=== PATIENT | male | born 1940 | race Caucasian/White ===

== ENCOUNTER 2019-07-23 19:40 | Inpatient (IN) | payer MEDICARE, OTHER, SELFPAY ==
[2019-07-23] VITALS (8 sets, daily range): BP systolic 116–137; BP diastolic 57–77; PULSE 51–64; RESP 11–21; TEMP 36.4–36.6; O2SAT 93–95; BMI 27.8; BMI 27.3
--- NOTE | 2019-07-23 19:47 | EKG12_ITS ---
Test Reason : DYSRHYTHMIA Blood Pressure : / mmHG Vent. Rate : 051 BPM Atrial Rate : 051 BPM P-R Int : 302 ms QRS Dur : 082 ms QT Int : 494 ms P-R-T Axes : 075 010 001 degrees QTc Int : 455 ms Sinus bradycardia with 1st degree A-V block with Premature supraventricular complexes Otherwise normal ECG Confirmed by LORI ADLER, ELIZABETH ([id number]), food editor SAMEER HERMAN ([id number]) on 07/26/2019 9:41:34 AM Referred By: JOIE Confirmed By:ELIZABETH SANDOVAL MD
--- NOTE | 2019-07-23 19:47 | CT_ITS ---
STUDY: CT BRAIN WITHOUT CONTRAST REASON FOR EXAM: Male, 78 years old. Slurred speech and dizziness. RADIATION DOSAGE (If Supplied By Facility): CTDIvol = ( 44.99 ) mGy, DLP = ( 812.98 ) mGycm TECHNIQUE: Transaxial CT imaging of the brain was performed without administration of intravenous contrast material. Individualized dose optimization techniques were used for this CT. COMPARISON: No relevant priors. FINDINGS: Normal soft tissue structures. Normal calvarium. There is mild cerebral atrophy with widening of the extra-axial spaces and ventricular dilatation. There are areas of decreased attenuation within the white matter tracts of the supratentorial brain, consistent with microvascular disease changes. Normal basal ganglia and thalami. Normal brainstem. Normal cerebellum. There is no intracranial hemorrhage. There are no findings of an acute ischemic infarction. Minimal areas of mucosal thickening in the inferior recess of the left frontal sinus, ethmoid sinuses and right maxillary sinus. CT/Brain/Head without Contrast IMPRESSION: No acute intracranial findings. Negative for hemorrhage, hematoma or mass density. Negative for demarcation of a new nonhemorrhagic infarct zone. Mild involutional changes for age. Incidental minimal sinus findings as stated above. Electronically Signed: Olga Oh MD at 20:19 EST , Service support ,
--- NOTE | 2019-07-23 19:54 | ED.VIS.GEN ---
History of Present Illness Chief Complaint: Alt LOC Informant: Patient Onset: Today Context: Sudden Onset Timing: Intermittent Current Severity: Mild Maximum Severity: Severe Narrative: The patient is a 78-year-old male with history of atrial fibrillation who is on Eliquis that presents to the emergency department with TIA symptoms. The patient states he was in his normal state of health. He states that approximately 7 PM tonight, he had sudden onset difficulty with his speech and numbness in his right hand. He states it lasted approximately 15 minutes. He states he had a very difficult time getting his words out in his words were mumbled. He denies headache. He denies blurry vision. He denies any chest pain. He does state that sometimes he will miss doses of his Eliquis, but for the most part will take it. He denies any recent trauma. He is otherwise been in his normal state of health. Prior similar symptoms: No Recent Illness/Hospitalization: No Past Medical History - Allergies and Home Meds Allergies/Adverse Reactions: Allergies hydromorphone [From Dilaudid] Adverse Reaction (Verified 07/23/19 19:48) Itching Primary Care Physician: Calli Lizarraga,Out of [NON-STAFF] - Prior records reviewed: Yes Past Medical History: - - CHF, A. fib Surgical History: noncontributory Lives: With Family Review of Systems General: Denies: Chills, Fever, Sweats Eyes: Denies: Visual changes - bilaterally, Diplopia ENT: Denies: Rhinorrhea, Sore throat Cardiovascular: Denies: Chest pain, Palpitations Respiratory: Denies: Dyspnea, Cough, Dyspnea on exertion Gastrointestinal: Denies: Abdominal pain, Nausea, Vomiting, Diarrhea, Melena, Hematochezia Genitourinary: Denies: Dysuria, Hematuria, Frequency Musculoskeletal: Denies: Back pain, Extremity Pain Skin: Denies: Rash, Wounds Neurological: Denies: Headache, Weakness, Numbness Physical Exam Vital Signs/Narrative: Vital Signs Temp Pulse Resp BP Pulse Ox 07/23/19 19:42 97.5 F L 54 L 21 H 137/77 H 95 Inital Vital Signs reviewed: Yes General: Well nourished, Well developed, No Acute Distress Head: Normocephalic, Atraumatic Eyes: Perrl, EOMI ENT: Moist mucous membranes, No rhinorrhea Neck: Supple, Nontender Cardiovascular: Regular rate, Regular rhythm, No murmurs Respiratory: No distress, CTA bilaterally, Chest nontender Abdomen: Soft, Nontender, Nondistended, Normal bowel sounds Back: Nontender, Normal Inspection Extremities: Nontender, No edema Skin: Normal color, No rash Neurological: Alert, Oriented x3, Cranial nerves II-XII grossly intact, Normal Strength, Normal Sensation Psychological: Normal affect, Normal Mood Diagnostic/Tx/Re-eval Clinical Impression(s) from Imaging Studies Brain CT 07/23/19 19:47 IMPRESSION: No acute intracranial findings. Negative for hemorrhage, hematoma or mass density. Negative for demarcation of a new nonhemorrhagic infarct zone. Mild involutional changes for age. Incidental minimal sinus findings as stated above. Electronically Signed: Olga Oh MD at 20:19 EST , Service support , Chest X-Ray 07/23/19 20:05 IMPRESSION: Generalized hyperexpansion. Chronic interstitial changes and chronic pleural thickening. Elevated left diaphragm with a discrete opacity above the diaphragm in the left lung most likely fibrotic lung/scarring. Scarring of the left costophrenic angle. No prior films available for comparison. Normal cardiac size without venous congestion. Mild elongation of the thoracic aorta. Anterior cervical spine fusion hardware included in the [id number]. Status post right rotator cuff surgery. Electronically Signed: Olga Oh MD at 20:21 EST , Service support , Abnormal Lab Results 07/23/19 07/23/19 07/23/19 19:55 19:55 19:55 WBC 9.6 RBC 4.28 L Hgb 13.9 Hct 42.5 MCV 99.3 H MCH 32.5 H MCHC 32.7 RDW Std Deviation 47.6 H RDW Coeff of Rudy 13.2 Plt Count 291 MPV 9.5 Immature Gran % (Auto) 0.400 Neut % (Auto) 68.2 Lymph % (Auto) 15.3 L Taylor % (Auto) 13.3 H Eos % (Auto) 2.2 Baso % (Auto) 0.6 Absolute Neuts (auto) 6.5 Absolute Lymphs (auto) 1.46 Nucleated RBC % 0 PT 13.7 INR 1.1 APTT 29.7 Sodium 139 Potassium 4.3 Chloride 107 Carbon Dioxide 26.0 Anion Gap 6 BUN 20 H Creatinine 1.25 Estim Creat Clear Calc 53.55 Est GFR (MDRD) Af Amer 72 Est GFR (MDRD) Non-Af 60 BUN/Creatinine Ratio 16.0 Glucose 80 Calcium 8.8 Troponin I < 0.015 - Rhythm Strip Rhythm Strip: Sinus Rhythm Rate: 55 Ectopy: None - EKG Initial EKG Interpretation: No Acute Injury Pattern, Sinus Bradycardia, AV Block Prior: No Prior - Medical Decision Making The patient presents to the emergency department with slurred speech that has since resolved. His NIH on arrival is 0. The patient is on Eliquis. EKG was obtained which showed sinus bradycardia with a first-degree AV block. He was sent immediately for a noncontrast head CT. This was unremarkable for acute process. The patient continued to have no recurrence or progression of symptoms. Metabolic work-up was otherwise unremarkable. Based on the patient's focal symptoms, history of atrial fibrillation, and advanced age I do feel that he would benefit from observation for TIA work-up. Did speak with the hospitalist who agrees with plan of care. Impression 1. TIA ED Disposition - Plan for ED Patient: Referrals: [facility] Doctor,Out of [NON-STAFF] -
[2019-07-23 20:00] LABS: Absolute Lymphocyte Count 1.46 X10^3/uL (0.83-4.51); Absolute Neutrophil Count 6.5 X10^3/uL (2.0-7.7); Basophil# 0.06 X10^3/uL; Basophil% 0.6 % (0-1); Eosinophil# 0.21 X10^3/uL; Eosinophils% 2.2 % (0-5); Hematocrit 42.5 % (40-54); Hemoglobin 13.9 g/dL (13.0-16.5); Lymphocyte # 1.46 X10^3/ul (4.0); Lymphocyte % 15.3 % (19-41); Mean Corp Hgb Conc 32.7 g/dL (32-36); Mean Corpuscular Hgb 32.5 pg (27.0-32.0); Mean Corpuscular Volume 99.3 fL (80-94); Mean Platelet Vol. 9.5 fl (6.2-12.0); Monocyte# 1.27 X10^3/uL; Monocyte% 13.3 % (0-10); NRBC Flagged by Analyzer 0 % (0-5); Neutrophil # 6.52 X10^3/uL (2.7-7.7); Neutrophil % 68.2 % (47-70); Platelet Count 291 K/mm3 (150-450); RBC Distribution Width CV 13.2 % (11.6-14.6); RBC Distribution Width SD 47.6 fl (35.1-43.9); Red Blood Count 4.28 M/mm3 (4.6-6.2); White Blood Count 9.6 K/mm3 (4.4-11.0)
--- NOTE | 2019-07-23 20:05 | RAD_ITS ---
STUDY: X-RAY CHEST REASON FOR EXAM: Male, 78 years old. Altered level of consciousness. TECHNIQUE: Single AP portable view of the chest. COMPARISON: None. FINDINGS: Generalized hyperexpansion of the right lung with a flattened diaphragm and thickened pleura. Underlying interstitial changes most likely of a chronic nature. On the left there is an elevated and irregular diaphragm. Broad area of parenchymal opacification just above the diaphragm of the discrete nature likely to be chronic fibrotic changes. Blunted costophrenic angle. Normal size heart. Normal mediastinum and chas. Normal visualized pulmonary arteries. There is atherosclerotic tortuosity of the aortic arch and descending thoracic aorta. Anterior cervical fusion hardware included in the [id number]. Status post right rotator cuff surgery. There is no demonstrated abnormality of the visualized soft tissue structures of the upper abdomen. RAD/Chest 1 View IMPRESSION: Generalized hyperexpansion. Chronic interstitial changes and chronic pleural thickening. Elevated left diaphragm with a discrete opacity above the diaphragm in the left lung most likely fibrotic lung/scarring. Scarring of the left costophrenic angle. No prior films available for comparison. Normal cardiac size without venous congestion. Mild elongation of the thoracic aorta. Anterior cervical spine fusion hardware included in the [id number]. Status post right rotator cuff surgery. Electronically Signed: Olga Oh MD at 20:21 EST , Service support ,
[2019-07-23 20:10] LABS: International Normalized Ratio 1.1; Prothrombin Time (Protime)PT. 13.7 SECONDS (11.7-14.9)
[2019-07-23 20:11] LABS: Partial Thromboplast Time 29.7 Seconds (24.1-36.2)
[2019-07-23 20:17] LABS: Anion Gap 6 (5-15); BUN 20 mg/dL (7-18); Calcium,Total 8.8 mg/dL (8.5-10.1); Chloride 107 mmol/L (98-107); Creatinine, Serum 1.25 mg/dL (0.70-1.30); EST Glomerular Filtration Rate 60 mL/min (>60); Est Glom Filt Rate - Afr Amer 72 mL/min (>60); Estimated Creatinine Clearance 53.55 ml/min; Glucose 80 mg/dL (74-106); Potassium 4.3 mmol/L (3.5-5.1); Sodium Level 139 mmol/L (136-145)
[2019-07-23] MEDS: 0.9% Normal Saline 1,000 ML 100 ML IV (20:27)
--- NOTE | 2019-07-23 20:52 | ED.RN ---
DUE TO PTS NIH OF ZERO, PER DR. LUCIA DISCONTINUE NIH Q30MIN UNLESS STATUS CHANGE
--- NOTE | 2019-07-23 21:02 | HP.PCM_ITS ---
Problem List (1) TIA (transient ischemic attack) Status: Acute (2) Near syncope Status: Acute (3) Bradycardia Status: Acute (4) CHF (congestive heart failure) Status: Chronic Qualifiers: Heart failure type: unspecified Heart failure chronicity: unspecified Qualified Code(s): I50.9 - Heart failure, unspecified (5) PAF (paroxysmal atrial fibrillation) Status: Acute (6) Hypertension Status: Chronic Qualifiers: Hypertension type: essential hypertension Qualified Code(s): I10 - Essential (primary) hypertension (7) Hyperlipidemia Status: Chronic Qualifiers: Hyperlipidemia type: unspecified Qualified Code(s): E78.5 - Hyperlipidemia, unspecified (8) RLS (restless legs syndrome) Status: Chronic (9) Anxiety and depression Status: Chronic (10) Former tobacco use Status: Chronic History of Present Illness Date of Admission: 07/23/19 Chief Complaint: Expressive aphasia, transient, confusion. The patient is a 78 y/o M w/ PMHx: CHF Unclear type, PAF, HTN, HLD, Anxiety and Depression, RLS, Former Tobacco use who presents to the [facility] ED on 07/23/19 with history of immediately prior to arrival onset of sensation of near syncope with bilateral hand tingling and inability to express himself, noted per his to be mumbling while attempting to wash the dishes which lasted 15 minutes with immediate call to EMS with onset with resolution by the time the squad arrived with NIH stroke scale scoring at that time 0 and repeat evaluation in the ED continue to be 0. Patient noted that he was cognizant of what was occurring but did not feel well. The patient denies any prior history of stroke. Discussed the fact that there is no neurology coverage over the weekend but patient was jack calderón adamant about continuing at [facility] for his evaluation given that his symptoms have resolved. Work-up in the ED included T 97.5, heart rate 54, BP 137/77, respiratory rate 21, 95% on room air, CBC with WC 9.6, heme globin 13.9, platelet 291 without any obvious left shift, unremarkable coags, unremarkable BMP aside BUN 20/creatinine 1.25, troponin less than 0.015, chest x-ray with generalized hyperexpansion with chronic interstitial changes and chronic pleural thickening with elevated left diaphragm with a discrete opacity above the diaphragm the left lung likely fibrotic lung scarring as well as scarring of the left costophrenic angle with normal cardiac size with no obvious congestion, mild elongation of the thoracic aorta, anterior cervical spinal fusion hardware as well as noted status post right rotator cuff surgery, CT of the brain with no acute intracranial findings with mild involutional changes for age and incidental minimal sinus findings, EKG with sinus bradycardia with first-degree AV block with no acute evidence of ischemia. Past Medical History Past Medical History (Chronic Problems): Chronic Problems CHF (congestive heart failure) (Chronic) Hypertension (Chronic) Hyperlipidemia (Chronic) RLS (restless legs syndrome) (Chronic) Anxiety and depression (Chronic) Former tobacco use (Chronic) Allergies hydromorphone [From Dilaudid] Adverse Reaction (Verified 07/23/19 19:48) Itching Home Medications: Ambulatory Orders Medication Instructions Recorded Apixaban [Eliquis] 5 mg PO DAILY 07/23/19 Aspirin 81 mg PO DAILY 07/23/19 Cholecalciferol (Vitamin D3) 2,000 unit PO DAILY 07/23/19 [Vitamin D3] Citalopram [Celexa] 40 mg PO DAILY 07/23/19 Furosemide [Lasix] 40 mg PO DAILY 07/23/19 Nitroglycerin 0.4 mg SL X1 PRN 07/23/19 Ropinirole HCl 1 mg PO PRN PRN 07/23/19 Simvastatin [Zocor] 40 mg PO QHS 07/23/19 Surgical History: - - Intervention for gastric ulcer, tonsillectomy, cataract surgery, lumbar back and neck surgery, right rotator cuff surgery. Psychiatric History: Anxiety, Depression Lives: Spouse/ Significant Other Smoking Status: Former smoker Tobacco Use: Non-smoker Alcohol: None Drugs: None - *Family History Maternal History Items: - - Patient notes a maternal family history of cirrhosis, concurrent alcohol abuse history. Paternal History Items: - - Patient notes a paternal hand family history of stroke. Review of Systems Constitutional: Reports: Malaise, Weakness, Fatigue. Denies: Chills, Fever, Weight Change HEENT: Denies: Head Aches, Sinus Congestion, Sinus Drainage Cardiovascular: Reports: Light Headedness, - - Near syncopal sensation per patient.. Denies: Chest Pain, Palpitations Respiratory: Denies: Cough, Shortness of Breath, Shortness of breath at rest, Shortness of breath upon exertion, Sputum production Gastrointestinal: Denies: Abdominal Pain, Nausea, Vomiting Genitourinary: Denies: Dysuria Musculoskeletal: Denies: Joint Pain, Joint Tenderness Skin: Denies: Rash, Wounds Neurological: Reports: Change in Speech, Numbness, Tingling. Denies: Focal weakness Psychiatric: Reports: Anxiety, Depression. Denies: Homicidal Ideations, Suicidal Ideations Hematologic/ Lymphatic: Reports: Easy Bruising, Easy Bleeding VTE Information - Inpt Only VTE Present on Admission: No VTE Mechan Device Prophylaxis: SCD's VTE Pharm Prophylaxis ordered?: Yes Patient Problems: Active and Suspected Problems TIA (transient ischemic attack) (Acute) PAF (paroxysmal atrial fibrillation) (Acute) Near syncope (Acute) Bradycardia (Acute) Subjective: Patient seated upright in ED bed, mildly fatigued appearance but no acute distress, notes continued resolution of prior symptoms. Objective: Physical Examination: General: awake, alert, oriented x 3 and cooperative, seated upright in the ED bed in no apparent distress. Skin: normal color, turgor, no icterus, cyanosis. HEENT: AT/NC, EOMI, PERRLA, MMM, no carotid bruits or JVD noted. Lungs: CTA bilaterally, moderate effort, moderate decrease BL bases, no rales, ronchi or wheezing. Heart: Bradycardic with regular rhythm; no gallop, rub audible. Abdomen: soft, NTTP, ND, normal BS, no HSM. Extremities: no cyanosis, clubbing, or edema. Neurological: patient awake, alert, oriented x 3; cognitive function intact; pupils equally reactive to light and accomodation; cranial nerves II-XII grossly normal, moving all 4 extremities, no focal deficits, strength preserved, sensation intact, finger-nose and [id number] appropriate, negative Babinski, intact ~vision. Psychiatric: affect appears mildly fatigued, no acute evidence of depressive or anxiety feelings. - Physical Exam Vitals/I&O's: Vital Signs Temp Pulse Resp BP Pulse Ox 97.5 F L 54 L 13 122/57 H 94 07/23/19 19:42 07/23/19 20:30 07/23/19 20:30 07/23/19 20:30 07/23/19 20:30 Oxygen Delivery Method Room Air Weight: 199 lb 11.821 oz Body Mass Index (BMI) 27.8 Finger Stick Blood Glucose 80 Laboratory Results 07/23/19 19:55: WBC 9.6, RBC 4.28 L, Hgb 13.9, Hct 42.5, MCV 99.3 H, MCH 32.5 H, MCHC 32.7, RDW Std Deviation 47.6 H, RDW Coeff of Rudy 13.2, Plt Count 291, MPV 9.5, Immature Gran % (Auto) 0.400, Neut % (Auto) 68.2, Lymph % (Auto) 15.3 L, Davis % (Auto) 13.3 H, Eos % (Auto) 2.2, Baso % (Auto) 0.6, Absolute Neuts (auto) 6.5, Absolute Lymphs (auto) 1.46, Nucleated RBC % 0 07/23/19 19:55: PT 13.7, INR 1.1, APTT 29.7 07/23/19 19:55: Sodium 139, Potassium 4.3, Chloride 107, Carbon Dioxide 26.0, Anion Gap 6, BUN 20 H, Creatinine 1.25, Estim Creat Clear Calc 53.55, Est GFR (MDRD) Af Amer 72, Est GFR (MDRD) Non-Af 60, BUN/Creatinine Ratio 16.0, Glucose 80, Calcium 8.8, Troponin I < 0.015 Current Medications Sodium Chloride () 1,000 mls @ 100 mls/hr IV .Q10H ONE Stop: 07/24/19 05:45 Last Admin: 07/23/19 20:27 Dose: 100 mls/hr Documented by: Assessment/Plan All Active Problems TIA (transient ischemic attack) (Acute) PAF (paroxysmal atrial fibrillation) (Acute) Near syncope (Acute) Bradycardia (Acute) The patient is a 78 y/o M w/ PMHx: CHF Unclear type, PAF, HTN, HLD, Anxiety and Depression, RLS, Former Tobacco use who presents to the [facility] ED on 07/23/19 with history of immediately prior to arrival onset of sensation of near syncope with bilateral hand tingling and inability to express himself, noted per his to be mumbling while attempting to wash the dishes which lasted 15 minutes with immediate call to EMS with onset with resolution by the time the squad arrived with NIH stroke scale scoring at that time 0 and repeat evaluation in the ED continue to be 0. 1. Transient Expressive Aphasia, Paresthesias secondary to suspected TIA: Work- up in the ED included T 97.5, heart rate 54, BP 137/77, respiratory rate 21, 95% on room air, CBC with WC 9.6, heme globin 13.9, platelet 291 without any obvious left shift, unremarkable coags, unremarkable BMP aside BUN 20/creatinine 1.25, troponin less than 0.015, chest x-ray with generalized hyperexpansion with chronic interstitial changes and chronic pleural thickening with elevated left diaphragm with a discrete opacity above the diaphragm the left lung likely fibrotic lung scarring as well as scarring of the left costophrenic angle with normal cardiac size with no obvious congestion, mild elongation of the thoracic aorta, anterior cervical spinal fusion hardware as well as noted status post right rotator cuff surgery, CT of the brain with no acute intracranial findings with mild involutional changes for age and incidental minimal sinus findings, EKG with sinus bradycardia with first-degree AV block with no acute evidence of ischemia. Will admit to the PCU, will obtain MRI Brain, MRA Head and Neck, ECHO, PT/OT/Speech/Nutrition evaluation per protocol. Given complete resolution will continue HTN regimen, maintain on eliquis and asa, continue statin therapy w/ FLP, fall precautions, mag and TSH pending as well as HgbA1c. Patient gorge discussion with noted lack of on-site neurology coverage over the weekend and still adamant about remaining at [facility] for evaluation of his TIA. 2. Bradycardia, Unclear if Chronic w/ recent ? Near Syncope complaint: As noted maintain on telemetry, not on rate or rhythm agent and likely this is the etiology given PAF history, ECHO pending, cardiac enzyme trending, repeat EKG in AM, obtain admission orthostatic VS. ASA, NG. FLP in AM. Mag, TSH pending. 3. PAF: We will continue patient home Eliquis regimen, not on rate or rhythm agent, requested echocardiogram. 4. Hypertension: Continue home regimen including Lasix, PRN hydralazine. 5. Hyperlipidemia: Continue home statin regimen. AM FLP. 6. CHF, unclear type: Appears compensated, chest x-ray with no concerning findings, will maintain on Eliquis, statin and Lasix therapy but would plan to hold if orthostatics notable, not on beta-steven or CORA inhibitor/ARB, defer to outpatient. 7. RLS: Continue home Requip regimen PRN. 8. Anxiety and depression: We will continue home Celexa regimen. 9. DVT prophylaxis: SCDs, continue home Eliquis regimen. 10. CODE status: Patient notes that his is his healthcare power of insurance attorney and he does have a living will in place. He denies ever having discussed CODE STATUS with his spouse. Discussed CODE status at length including difference between FULL code, DNR-CCA and DNR-CC status. Following discussions about the differences in these status and given that this has not been discussed between him and his spouse per discussion with patient will maintain full CODE STATUS and encouraged him to review these discussions with family. Advanced Care Planning Face to Face Time: 16 minutes. Code Visit OBSV E&M: 69898 Initial observation care L3 Procedures: 80571 Advncd Care Plan 30 Min
--- NOTE | 2019-07-23 21:43 | ECHOD_ITS ---
Reason For Study: TIA/CVA Procedure This was a 2D Doppler, Color Flow transthoracic echocardiogram. Exam performed portable in patient room. Left Ventricle Normal LV size. Left ventricular systolic function is normal. The estimated ejection fraction is 60 %. Stage 3 diastolic dysfunction. No regional wall motion abnormalities noted. Right Ventricle Normal RV size. Normal systolic function. Atria The left atrium is moderately enlarged. Normal right atrium. Bubble contrast study negative for right to left interatrial shunt. Mitral Valve Bileaflet diffuse mitral valve thickening. Mild (1+) eccentric mitral valve insufficiency. Tricuspid Valve Normal tricuspid valve. Mild (1+) tricuspid valve insufficiency. Pulmonary artery systolic pressure is 50 mmHg. Moderate pulmonary hypertension. Aortic Valve Trisinus/trileaflet aortic valve. Mild focal aortic valve calcification. Pulmonic Valve The pulmonic valve is not well visualized. Great Vessels Normal aortic root. The pulmonary artery is normal size. Normal inferior vena cava. Pericardium/Pleural No pericardial effusion. Medication Performed a rapid injection of agitated mix of 9 cc saline and 1cc air to assess for atrial septal defect. MMode/2D Measurements & Calculations LVIDd: 4.6 cm IVSd: 1.2 cm Ao root diam: 2.9 cm LVIDs: 2.5 cm LVPWd: 1.0 cm RVDd: 4.8 cm FS: 44.3 % LAV(MOD-bp): 73.3 ml LVAd ap4: 22.7 cm2 SV(MOD-sp4): 40.4 ml LAV(MOD-bp) Indexed: 34.8 ml/m2 EDV(MOD-sp4): 59.5 ml LAV(MOD-sp2): 57.6 ml EDV(sp4-el): 61.6 ml LAV(MOD-sp4): 75.1 ml LVAs ap4: 11.4 cm2 ESV(MOD-sp4): 19.1 ml ESV(sp4-el): 18.7 ml EF(MOD-sp4): 67.9 % EF(sp4-el): 69.6 % SV(sp4-el): 42.8 ml LA A4 area: 23.6 cm2 LA dimension(2D): 5.0 cm RA A4 area: 18.2 cm2 Doppler Measurements & Calculations MV E max virgilio: 105.1 cm/sec Lat Peak E' Virgilio: 3.6 cm/sec Med Peak E' Virgilio: 4.5 cm/sec MV A max virgliio: 55.5 cm/sec E/E' lat: 29.1 E/E' med: 23.4 MV E/A: 1.9 Ao V2 max: 197.0 cm/sec LV V1 max: 131.0 cm/sec PA V2 max: 102.9 cm/sec Ao max P.5 mmHg LV V1 max P.9 mmHg Ao V2 mean: 132.1 cm/sec Ao mean P.7 mmHg Ao V2 VTI: 44.5 cm TR max virgilio: 334.9 cm/sec TR max P.9 mmHg Interpretation Summary Normal LV size. Left ventricular systolic function is normal. The estimated ejection fraction is 60 %. Stage 3 diastolic dysfunction. The left atrium is moderately enlarged. Mild (1+) tricuspid valve insufficiency. Pulmonary artery systolic pressure is 50 mmHg. Moderate pulmonary hypertension. Bubble contrast study negative for right to left interatrial shunt. Ordering Physician: Lizette Shaw Referring Physician: Phong Machado Performed By: Michelle Almeida RDCS, RVT
[2019-07-23 22:07] LABS: Hemoglobin A1c 5.4 % (4.2-6.3)
[2019-07-23 22:13] LABS: Magnesium 2.2 mg/dL (1.6-2.6)
[2019-07-23 23:31] LABS: Bedside Glucose 91 mg/dL (70-110)
[2019-07-24] VITALS (11 sets, daily range): BP systolic 106–137; BP diastolic 52–84; PULSE 50–62; RESP 15–18; TEMP 36.7–37.2; O2SAT 92–94; BMI 27.3
--- NOTE | 2019-07-24 05:55 | EKG12_ITS ---
Test Reason : Blood Pressure : / mmHG Vent. Rate : 049 BPM Atrial Rate : 049 BPM P-R Int : 270 ms QRS Dur : 080 ms QT Int : 502 ms P-R-T Axes : 081 024 011 degrees QTc Int : 453 ms Sinus bradycardia with 1st degree A-V block with Premature supraventricular complexes Low voltage QRS Septal infarct , age undetermined Abnormal ECG When compared with ECG of 23-JUL-2019 19:58, MANUAL COMPARISON REQUIRED, DATA IS UNCONFIRMED Confirmed by RICHARD CEBALLOS ([id number]), newspaper editor managing DARRYL SAHA ([id number]) on 07/30/2019 11:54:52 AM Referred By: CHRIS Confirmed By:RICHARD CEBALLOS
[2019-07-24 06:57] LABS: Absolute Lymphocyte Count 0.99 X10^3/uL (0.83-4.51); Absolute Neutrophil Count 5.8 X10^3/uL (2.0-7.7); Basophil# 0.03 X10^3/uL; Basophil% 0.4 % (0-1); Eosinophil# 0.22 X10^3/uL; Eosinophils% 2.7 % (0-5); Hematocrit 35.8 % (40-54); Hemoglobin 11.7 g/dL (13.0-16.5); Lymphocyte # 0.99 X10^3/ul (4.0); Lymphocyte % 12.1 % (19-41); Mean Corp Hgb Conc 32.7 g/dL (32-36); Mean Corpuscular Hgb 32.5 pg (27.0-32.0); Mean Corpuscular Volume 99.4 fL (80-94); Mean Platelet Vol. 9.6 fl (6.2-12.0); Monocyte% 14.6 % (0-10); NRBC Flagged by Analyzer 0 % (0-5); Neutrophil # 5.76 X10^3/uL (2.7-7.7); Neutrophil % 70.1 % (47-70); Platelet Count 227 K/mm3 (150-450); RBC Distribution Width CV 13.3 % (11.6-14.6); RBC Distribution Width SD 48.6 fl (35.1-43.9); White Blood Count 8.2 K/mm3 (4.4-11.0)
[2019-07-24 07:28] LABS: Anion Gap 6 (5-15); BUN 20 mg/dL (7-18); BUN/Creat Ratio 16.4 RATIO (10-20); Calcium,Total 8.1 mg/dL (8.5-10.1); Chloride 110 mmol/L (98-107); Cholesterol 143 mg/dL (200); Creatinine, Serum 1.22 mg/dL (0.70-1.30); EST Glomerular Filtration Rate 61 mL/min (>60); Est Glom Filt Rate - Afr Amer 74 mL/min (>60); Estimated Creatinine Clearance 54.86 ml/min; Glucose 95 mg/dL (74-106); High Density Lipoprotein 55 mg/dL; Potassium 4.1 mmol/L (3.5-5.1); Sodium Level 142 mmol/L (136-145); T4 Free Direct 1.06 ng/dL (0.76-1.46); Triglycerides 105 mg/dL; Very Low Density Lipoprotein 21 mg/dL (5-40)
[2019-07-24] MEDS: Aspirin 81 MG TAB.CHEW PO (10:06)
[2019-07-24] MEDS: APIXABAN 5 MG TABLET PO (10:06)
[2019-07-24] MEDS: Citalopram 40 MG TABLET PO (10:06)
[2019-07-24] MEDS: Furosemide 40 MG Tablet PO (10:07)
[2019-07-24] MEDS: 0.9% Saline Lock 10 ML Syringe IV ×2 (13:49→18:54)
--- NOTE | 2019-07-24 14:13 | PCM.PROGNOTE ---
<Di Bermeo - Last Filed: 07/24/19 14:31> Patient Problems: Active and Suspected Problems TIA (transient ischemic attack) (Acute) PAF (paroxysmal atrial fibrillation) (Acute) Near syncope (Acute) Bradycardia (Acute) Subjective: Patient seen and examined. Denies further neuro symptoms or focal deficits. Discussed MRI findings. Plan to keep patient for neuro evaluation on Friday. - Physical Exam Vitals/I&O's: Vital Signs Temp Pulse Resp BP Pulse Ox 98.1 F 55 L 16 108/56 L 92 07/24/19 13:46 07/24/19 13:46 07/24/19 13:46 07/24/19 13:46 07/24/19 13:46 Oxygen Delivery Method Room Air Weight: 196 lb 3.382 oz Body Mass Index (BMI) 27.3 Finger Stick Blood Glucose 80 Orthostatic Vital Signs Start: 07/24/19 09:57 Freq: q24h Status: Active Protocol: Activity Type Activity Date Activity User E-Sign Co-Sign Detail Recorded Client Recorded Date Recorded By Document 07/24/19 09:56 BS [id number] 07/24/19 10:01 BS 07/24/19 09:56 Orthostatic Vitals Standing -Blood Pressure (90/60-120/80) 126/67 H -Extremity Use Left Arm -Pulse Rate (60-100) 55 L Sitting -Blood Pressure (90/60-120/80) 124/73 H -Extremity Use Left Arm -Pulse Rate (60-100) 54 L Lying -Blood Pressure (90/60-120/80) 114/68 -Extremity Use Left Arm -Pulse Rate (60-100) 56 L Intake and Output for Last 24 Hours 07/22/19 07/23/19 07/24/19 23:59 23:59 23:59 Intake Total 1720 / 1720 Output Total 325 / 325 Balance 1395 / 1395 General: Alert, Oriented x3, Cooperative HEENT: Atraumatic, PERRLA, EOMI, Normocephalic Neck: Supple, No JVD, Negative Carotid Bruits Lungs: Clear to auscultation, Normal air movement Cardiovascular: Regular rate, Regular Rhythm, Normal S1, Normal S2, No murmurs Abdomen: Bowel Sounds Present, Soft, Non Tender, Non-Distended Extremities: No clubbing, No cyanosis, No edema, Capillary Refill Less than 3 Seconds Skin: No rashes, No breakdown Musculoskeletal: No Tenderness to Palpation of Joints or Extremities Neurological: Cranial nerves II-XII grossly intact, Neuro grossly intact Psych/Mental Status: Normal Affect, Appropriate Laboratory Results 07/23/19 19:55: WBC 9.6, RBC 4.28 L, Hgb 13.9, Hct 42.5, MCV 99.3 H, MCH 32.5 H, MCHC 32.7, RDW Std Deviation 47.6 H, RDW Coeff of Rudy 13.2, Plt Count 291, MPV 9.5, Immature Gran % (Auto) 0.400, Neut % (Auto) 68.2, Lymph % (Auto) 15.3 L, [place] % (Auto) 13.3 H, Eos % (Auto) 2.2, Baso % (Auto) 0.6, Absolute Neuts (auto) 6.5, Absolute Lymphs (auto) 1.46, Nucleated RBC % 0 07/23/19 19:55: PT 13.7, INR 1.1, APTT 29.7 07/23/19 19:55: Sodium 139, Potassium 4.3, Chloride 107, Carbon Dioxide 26.0, Anion Gap 6, BUN 20 H, Creatinine 1.25, Estim Creat Clear Calc 53.55, Est GFR (MDRD) Af Amer 72, Est GFR (MDRD) Non-Af 60, BUN/Creatinine Ratio 16.0, Glucose 80, Calcium 8.8, Troponin I < 0.015 07/23/19 19:55: Magnesium 2.2, TSH 8.00 H 07/23/19 19:55: Hemoglobin A1c 5.4 07/23/19 23:08: Troponin I < 0.015 07/23/19 23:22: POC Glucose 91 07/24/19 01:58: Troponin I < 0.015 07/24/19 06:41: WBC 8.2, RBC 3.60 L, Hgb 11.7 L, Hct 35.8 L, MCV 99.4 H, MCH 32.5 H, MCHC 32.7, RDW Std Deviation 48.6 H, RDW Coeff of Rudy 13.3, Plt Count 227, MPV 9.6, Immature Gran % (Auto) 0.100, Neut % (Auto) 70.1 H, Lymph % (Auto) 12.1 L, [place] % (Auto) 14.6 H, Eos % (Auto) 2.7, Baso % (Auto) 0.4, Absolute Neuts (auto) 5.8, Absolute Lymphs (auto) 0.99, Nucleated RBC % 0 07/24/19 06:41: Sodium 142, Potassium 4.1, Chloride 110 H, Carbon Dioxide 26.0, Anion Gap 6, BUN 20 H, Creatinine 1.22, Estim Creat Clear Calc 54.86, Est GFR (MDRD) Af Amer 74, Est GFR (MDRD) Non-Af 61, BUN/Creatinine Ratio 16.4, Glucose 95, Calcium 8.1 L, Triglycerides 105, Cholesterol 143, LDL Cholesterol 67, VLDL Cholesterol 21, HDL Cholesterol 55, Free T4 1.06 Current Medications Acetaminophen (Tylenol) 650 mg PO Q6H PRN PRN PRN Reason: Non-cardiac pain (mod-severe) Al Hydroxide/Mg Hydroxide (Mylanta Ii) 15 - 30 ml PO Q4H PRN PRN PRN Reason: INDIGESTION Albuterol Sulfate (Ventolin Aerosols) 2.5 mg INHALATION Q2H PRN PRN PRN Reason: dyspnea, wheezing Apixaban (Eliquis) 5 mg PO DAILY [facility] Last Admin: 07/24/19 10:06 Dose: 5 mg Documented by: [facility] Last Admin: 07/24/19 10:06 Dose: 81 mg Documented by: Atorvastatin Calcium (Lipitor) 20 mg PO QHS [facility] Last Admin: 07/23/19 23:34 Dose: Not Given Documented by: Citalopram Hydrobromide (Celexa) 40 mg PO DAILY [facility] Last Admin: 07/24/19 10:06 Dose: 40 mg Documented by: Dextrose (D50w Syringe) 0 gm IV X1 PRN; Protocol PRN Reason: Hypoglycemia Furosemide (Lasix) 40 mg PO DAILY [facility] Last Admin: 07/24/19 10:07 Dose: 40 mg Documented by: Glucagon () 1 mg IM .X1 PRN PRN Reason: Hypoglycemia Hydralazine HCl (Apresoline Iv) 10 mg IV Q4H PRN PRN PRN Reason: SBP > 160 Magnesium Hydroxide (Milk Of Magnesia) 30 ml PO DAILY PRN PRN Reason: Constipation Melatonin (Melatonin) 3 mg PO QHS PRN PRN PRN Reason: INSOMNIA Nitroglycerin (Nitrostat) 0.4 mg SUBLINGUAL Q5M PRN PRN Reason: CARDIAC/CHEST PAIN Ondansetron HCl (Zofran) 4 mg IV Q8H PRN PRN PRN Reason: NAUSEA/VOMITING Pramipexole Dihydrochloride (Mirapex) 0.5 mg PO DAILY PRN PRN PRN Reason: RESTLESS LEGS Sodium Chloride () 10 - 40 ml IV UD PRN PRN Reason: SALINE FLUSH Last Admin: 07/24/19 13:49 Dose: 10 ml Documented by: Medical Necessity - Tobacco Use Smoking Status: Former smoker Tobacco Use: Non-smoker Assessment/Plan All Active Problems TIA (transient ischemic attack) (Acute) PAF (paroxysmal atrial fibrillation) (Acute) Near syncope (Acute) Bradycardia (Acute) 1. Acute stroke-MRI of brain shows small acute to early subacute infarct in the left posterior temporal and occipital lobes. Continue aspirin, Eliquis, statin. PT/OT/ST. echocardiogram demonstrates an EF of 60%, stage III diastolic dysfunction, mild tricuspid valve insufficiency, moderate pulmonary hypertension with a artery systolic pressure 50 mmHg. MRA of neck shows no evidence of hemodynamically significant carotid stenosis. Consult neurology. 2. Mild bradycardia-stable. Not on rate limiting regimen. Monitor telemetry. Orthostatic vitals negative. 3. PAF-continue Eliquis, not on rate limiting medication. 4. HTN-stable, continue home Lasix regimen. 5. HLD-increase to high-dose statin. 6. Chronic diastolic CHF-echocardiogram demonstrates an EF of 60%, stage III diastolic dysfunction, mild tricuspid valve insufficiency, moderate pulmonary hypertension with a artery systolic pressure 50 mmHg. 7. Anxiety/Depression-continue celexa regimen. 8. RLS- continue home requip regimen. DVT prophylaxis-Eliquis This patient was seen by JOAQUÍN Still under the supervision of Dr. Cadena. <Nancy Cadena - Last Filed: 07/24/19 19:56> - Physical Exam Vitals/I&O's: Vital Signs Temp Pulse Resp BP Pulse Ox 98.4 F 57 L 18 119/69 93 07/24/19 17:45 07/24/19 19:32 07/24/19 17:45 07/24/19 17:45 07/24/19 17:45 Oxygen Delivery Method Room Air Weight: 89 kg Body Mass Index (BMI) 27.3 Finger Stick Blood Glucose 80 Orthostatic Vital Signs Start: 07/24/19 09:57 Freq: q24h Status: Active Protocol: Activity Type Activity Date Activity User E-Sign Co-Sign Detail Recorded Client Recorded Date Recorded By Document 07/24/19 09:56 BS [id number] 07/24/19 10:01 BS 07/24/19 09:56 Orthostatic Vitals Standing -Blood Pressure (90/60-120/80) 126/67 H -Extremity Use Left Arm -Pulse Rate (60-100) 55 L Sitting -Blood Pressure (90/60-120/80) 124/73 H -Extremity Use Left Arm -Pulse Rate (60-100) 54 L Lying -Blood Pressure (90/60-120/80) 114/68 -Extremity Use Left Arm -Pulse Rate (60-100) 56 L Intake and Output for Last 24 Hours 07/22/19 07/23/19 07/24/19 23:59 23:59 23:59 Intake Total 1960 / 1960 Output Total 325 / 325 Balance 1635 / 1635 Laboratory Results 07/23/19 19:55: WBC 9.6, RBC 4.28 L, Hgb 13.9, Hct 42.5, MCV 99.3 H, MCH 32.5 H, MCHC 32.7, RDW Std Deviation 47.6 H, RDW Coeff of Rudy 13.2, Plt Count 291, MPV 9.5, Immature Gran % (Auto) 0.400, Neut % (Auto) 68.2, Lymph % (Auto) 15.3 L, [place] % (Auto) 13.3 H, Eos % (Auto) 2.2, Baso % (Auto) 0.6, Absolute Neuts (auto) 6.5, Absolute Lymphs (auto) 1.46, Nucleated RBC % 0 07/23/19 19:55: PT 13.7, INR 1.1, APTT 29.7 07/23/19 19:55: Sodium 139, Potassium 4.3, Chloride 107, Carbon Dioxide 26.0, Anion Gap 6, BUN 20 H, Creatinine 1.25, Estim Creat Clear Calc 53.55, Est GFR (MDRD) Af Amer 72, Est GFR (MDRD) Non-Af 60, BUN/Creatinine Ratio 16.0, Glucose 80, Calcium 8.8, Troponin I < 0.015 07/23/19 19:55: Magnesium 2.2, TSH 8.00 H 07/23/19 19:55: Hemoglobin A1c 5.4 07/23/19 23:08: Troponin I < 0.015 07/23/19 23:22: POC Glucose 91 07/24/19 01:58: Troponin I < 0.015 07/24/19 06:41: WBC 8.2, RBC 3.60 L, Hgb 11.7 L, Hct 35.8 L, MCV 99.4 H, MCH 32.5 H, MCHC 32.7, RDW Std Deviation 48.6 H, RDW Coeff of Rudy 13.3, Plt Count 227, MPV 9.6, Immature Gran % (Auto) 0.100, Neut % (Auto) 70.1 H, Lymph % (Auto) 12.1 L, [place] % (Auto) 14.6 H, Eos % (Auto) 2.7, Baso % (Auto) 0.4, Absolute Neuts (auto) 5.8, Absolute Lymphs (auto) 0.99, Nucleated RBC % 0 07/24/19 06:41: Sodium 142, Potassium 4.1, Chloride 110 H, Carbon Dioxide 26.0, Anion Gap 6, BUN 20 H, Creatinine 1.22, Estim Creat Clear Calc 54.86, Est GFR (MDRD) Af Amer 74, Est GFR (MDRD) Non-Af 61, BUN/Creatinine Ratio 16.4, Glucose 95, Calcium 8.1 L, Triglycerides 105, Cholesterol 143, LDL Cholesterol 67, VLDL Cholesterol 21, HDL Cholesterol 55, Free T4 1.06 Current Medications Acetaminophen (Tylenol) 650 mg PO Q6H PRN PRN PRN Reason: Non-cardiac pain (mod-severe) Al Hydroxide/Mg Hydroxide (Mylanta Ii) 15 - 30 ml PO Q4H PRN PRN PRN Reason: INDIGESTION Albuterol Sulfate (Ventolin Aerosols) 2.5 mg INHALATION Q2H PRN PRN PRN Reason: dyspnea, wheezing Apixaban (Eliquis) 5 mg PO DAILY [facility] Last Admin: 07/24/19 10:06 Dose: 5 mg Documented by: Aspirin (Aspirin, Baby) 81 mg PO DAILYCM [facility] Last Admin: 07/24/19 10:06 Dose: 81 mg Documented by: Atorvastatin Calcium (Lipitor) 40 mg PO QHS [facility] Citalopram Hydrobromide (Celexa) 40 mg PO DAILY [facility] Last Admin: 07/24/19 10:06 Dose: 40 mg Documented by: Dextrose (D50w Syringe) 0 gm IV X1 PRN; Protocol PRN Reason: Hypoglycemia Furosemide (Lasix) 40 mg PO DAILY [facility] Last Admin: 07/24/19 10:07 Dose: 40 mg Documented by: Glucagon () 1 mg IM .X1 PRN PRN Reason: Hypoglycemia Hydralazine HCl (Apresoline Iv) 10 mg IV Q4H PRN PRN PRN Reason: SBP > 160 Magnesium Hydroxide (Milk Of Magnesia) 30 ml PO DAILY PRN PRN Reason: Constipation Melatonin (Melatonin) 3 mg PO QHS PRN PRN PRN Reason: INSOMNIA Nitroglycerin (Nitrostat) 0.4 mg SUBLINGUAL Q5M PRN PRN Reason: CARDIAC/CHEST PAIN Ondansetron HCl (Zofran) 4 mg IV Q8H PRN PRN PRN Reason: NAUSEA/VOMITING Last Admin: 07/24/19 18:48 Dose: 4 mg Documented by: Pramipexole Dihydrochloride (Mirapex) 0.5 mg PO DAILY PRN PRN PRN Reason: RESTLESS LEGS Sodium Chloride () 10 - 40 ml IV UD PRN PRN Reason: SALINE FLUSH Last Admin: 07/24/19 18:54 Dose: 20 ml Documented by: Assessment/Plan This patient was seen in conjunction with Di Bermeo [employer]. I have independently interviewed and examined the patient and reviewed pertinent historical, laboratory, and other data. Please refer to her note for patient's presentation, findings, and recommendations. Patient was seen and examined. He denies any new complaints. He is able to express himself. No more numbness of his extremities. MRI of brain is positive for acute infarct of the left posterior temporal and occipital lobe. Patient already on Eliquis and aspirin and statin MRI of the head and neck showed no stenosis of the arteries. Vitals were reviewed -stable Physical Exam: Gen: Appears comfortable, not pale, not jaundiced, alert oriented x3 CVS:HS I +II, regular, no murmurs RESP: Color clear to auscultation GI: BS present and normal, nontender, no palpable organs EXT:No edema Labs reviewed: ASSESSMENT: 1. Acute stroke 2. Bradycardia 3. Paroxysmal atrial fibrillation 4. Hypertension 5. Chronic Diastolic heart failure 6. Hyperlipidemia Meds reviewed Plan: Continue on aspirin, statin and Eliquis Patient will need a 30-day event monitor on discharge Would need outpatient sleep study Code Visit Inpatient E&M: [id number] Subs Hosp L2
[2019-07-24] MEDS: Ondansetron 4 MG/2 ML Vial IV (18:48)
--- NOTE | 2019-07-24 21:43 | MRI_ITS ---
We are attempting to reach an attending provider to discuss findings. An addendum with communication details will be sent when the communication is complete. STUDY: MRA NECK WITHOUT CONTRAST REASON FOR EXAM: Male, 78 years old. Stroke. Slurred speech TECHNIQUE: Source images were obtained, MIPs were performed. The study was performed unenhanced. COMPARISON: None. FINDINGS: RIGHT CAROTID ARTERIES: The origins of the great vessels are not included on this examination. Bilateral common carotid arteries however appear patent. The carotid bifurcations appear patent. Significant patient motion artifact limits assessment. Mid and distal segments of the internal carotid arteries are patent. Codominant vertebral arteries are seen poorly assessed due to significant patient motion artifact. Tortuosity of the vertebral arteries seen. IMPRESSION: No evidence for hemodynamically significant extracranial carotid artery stenosis based on this motion degraded MRA examination of the neck. Significant patient motion artifact which limits accurate assessment. Electronically Signed: Curt Wyatt, at 12:46 EST Tel , Service support , MRI/MRA Neck without Contrast
--- NOTE | 2019-07-24 21:43 | MRI_ITS ---
STUDY: MRA OF THE HEAD WITHOUT CONTRAST REASON FOR EXAM: Male, 78 years old. Stroke TECHNIQUE: 3-D [id number] (TOF) imaging was performed with MIPs. The study was performed unenhanced. COMPARISON: None. FINDINGS: Petrous, cavernous and supraclinoid segments of the internal carotid arteries are patent. The bilateral middle and anterior cerebral arteries are patent. Visualized segments of the vertebral arteries are patent. Basilar artery is patent. The bilateral posterior cerebral arteries are patent. IMPRESSION: No evidence for intracranial aneurysm, large vessel occlusion or significant arterial stenosis. Electronically Signed: Curt Wyatt, at 12:43 EST Tel , Service support , MRI/MRA Head ONLY without Contrast
--- NOTE | 2019-07-24 21:43 | MRI_ITS ---
STUDY: MRI BRAIN WITHOUT CONTRAST REASON FOR EXAM: Male, 78 years old. Stroke TECHNIQUE: Standardized multiplanar fat and water weighted pulse sequences were obtained. COMPARISON: CT brain from July 23, 2019 FINDINGS: No evidence for shift of midline structures, mass effect or compression of the ventricles noted. Small cortical-based restricted diffusion in the left posterior temporal and occipital lobes noted. Differential considerations include a small acute to early subacute infarct, encephalitides or postsurgical changes. No associated hemorrhage or mass effect. Scattered foci of T2/FLAIR hyperintensity in the periventricular and subcortical white matter noted which are nonspecific in imaging appearance however likely related with chronic small vessel disease The basal cisterns are patent. No discrete mass in the posterior fossa. No evidence for hydrocephalus. Skull base vascular flow voids are patent. No evidence for cerebellar tonsillar herniation. Mucosal thickening of the maxillary sinuses and the ethmoid . Cells MRI/Brain without Contrast IMPRESSION: Small cortical-based restricted diffusion in the left posterior temporal and occipital lobes noted. Differential considerations include a small acute to early subacute infarct, encephalitides or postsurgical changes. No associated hemorrhage or mass effect. Chronic small vessel disease and age-related involutional changes. Electronically Signed: Curt Wyatt, at 12:24 EST Tel , Service support ,
[2019-07-24] MEDS: MELATONIN 3 MG TABLET PO (22:36)
[2019-07-24] MEDS: Acetaminophen 325 MG Tablet 650 MG PO (22:36)
[2019-07-24] MEDS: Atorvastatin Calcium 40 MG Tablet PO (22:37)
[2019-07-25] VITALS (9 sets, daily range): BP systolic 99–120; BP diastolic 54–62; PULSE 45–58; RESP 18; TEMP 36.8–37.1; O2SAT 92–94; BMI 27.3
[2019-07-25] MEDS: 0.9% Saline Lock 10 ML Syringe IV ×2 (00:39→09:22)
[2019-07-25] MEDS: Ketorolac 15 MG/ML Vial IV (00:39)
[2019-07-25] MEDS: Aspirin 81 MG TAB.CHEW PO (09:22)
[2019-07-25] MEDS: APIXABAN 5 MG TABLET PO ×2 (09:22→21:09)
[2019-07-25] MEDS: Furosemide 40 MG Tablet PO (09:22)
[2019-07-25] MEDS: Citalopram 40 MG TABLET PO (09:22)
--- NOTE | 2019-07-25 10:26 | PN_ITS ---
<Di Bermeo - Last Filed: 07/25/19 10:31> Patient Problems: Active and Suspected Problems TIA (transient ischemic attack) (Acute) PAF (paroxysmal atrial fibrillation) (Acute) Near syncope (Acute) Bradycardia (Acute) Subjective: Patient seen and examined. Resting comfortably in bed. No neuro symptoms or focal deficits. - Physical Exam Vitals/I&O's: Vital Signs Temp Pulse Resp BP Pulse Ox 98.4 F 51 L 18 104/56 L 93 07/25/19 09:17 07/25/19 09:17 07/25/19 09:17 07/25/19 09:17 07/25/19 09:17 Oxygen Delivery Method Room Air Weight: 196 lb 3.382 oz Body Mass Index (BMI) 27.3 Finger Stick Blood Glucose 80 Orthostatic Vital Signs Start: 07/24/19 09:57 Freq: q24h Status: Active Protocol: Activity Type Activity Date Activity User E-Sign Co-Sign Detail Recorded Client Recorded Date Recorded By Document 07/25/19 06:20 [facility] [id number] 07/25/19 06:26 MICHAEL 07/25/19 06:20 Orthostatic Vitals Standing -Blood Pressure (90/60-120/80) 120/61 -Extremity Use Left Arm -Pulse Rate (60-100) 58 L Sitting -Blood Pressure (90/60-120/80) 114/60 -Extremity Use Left Arm -Pulse Rate (60-100) 50 L Lying -Blood Pressure (90/60-120/80) 106/61 -Extremity Use Left Arm -Pulse Rate (60-100) 46 L Intake and Output for Last 24 Hours 07/23/19 07/24/19 07/25/19 23:59 23:59 23:59 Intake Total 2160 / 2160 Output Total 325 / 325 Balance 1835 / 1835 General: Alert, Oriented x3, Cooperative HEENT: Atraumatic, PERRLA, EOMI, Normocephalic Neck: Supple, No JVD, Negative Carotid Bruits Lungs: Clear to auscultation, Normal air movement Cardiovascular: Regular Rhythm, Normal S1, Normal S2, Bradycardic Abdomen: Bowel Sounds Present, Soft, Non Tender, Non-Distended Extremities: No clubbing, No cyanosis, No edema, Capillary Refill Less than 3 Seconds Skin: No rashes, No breakdown Musculoskeletal: No Tenderness to Palpation of Joints or Extremities Neurological: Cranial nerves II-XII grossly intact, Neuro grossly intact Psych/Mental Status: Normal Affect, Appropriate Current Medications Acetaminophen (Tylenol) 650 mg PO Q6H PRN PRN PRN Reason: Non-cardiac pain (mod-severe) Last Admin: 07/24/19 22:36 Dose: 650 mg Documented by: Al Hydroxide/Mg Hydroxide (Mylanta Ii) 15 - 30 ml PO Q4H PRN PRN PRN Reason: INDIGESTION Albuterol Sulfate (Ventolin Aerosols) 2.5 mg INHALATION Q2H PRN PRN PRN Reason: dyspnea, wheezing Apixaban (Eliquis) 5 mg PO BID [facility] Last Admin: 07/25/19 09:22 Dose: 5 mg Documented by: [facility] Last Admin: 07/25/19 09:22 Dose: 81 mg Documented by: Atorvastatin Calcium (Lipitor) 40 mg PO QHS [facility] Last Admin: 07/24/19 22:37 Dose: 40 mg Documented by: Citalopram Hydrobromide (Celexa) 40 mg PO DAILY [facility] Last Admin: 07/25/19 09:22 Dose: 40 mg Documented by: Dextrose (D50w Syringe) 0 gm IV X1 PRN; Protocol PRN Reason: Hypoglycemia Furosemide (Lasix) 40 mg PO DAILY [facility] Last Admin: 07/25/19 09:22 Dose: 40 mg Documented by: Glucagon () 1 mg IM .X1 PRN PRN Reason: Hypoglycemia Hydralazine HCl (Apresoline Iv) 10 mg IV Q4H PRN PRN PRN Reason: SBP > 160 Magnesium Hydroxide (Milk Of Magnesia) 30 ml PO DAILY PRN PRN Reason: Constipation Melatonin (Melatonin) 3 mg PO QHS PRN PRN PRN Reason: INSOMNIA Last Admin: 07/24/19 22:36 Dose: 3 mg Documented by: Nitroglycerin (Nitrostat) 0.4 mg SUBLINGUAL Q5M PRN PRN Reason: CARDIAC/CHEST PAIN Ondansetron HCl (Zofran) 4 mg IV Q8H PRN PRN PRN Reason: NAUSEA/VOMITING Last Admin: 07/24/19 18:48 Dose: 4 mg Documented by: Pramipexole Dihydrochloride (Mirapex) 0.5 mg PO DAILY PRN PRN PRN Reason: RESTLESS LEGS Sodium Chloride () 10 - 40 ml IV UD PRN PRN Reason: SALINE FLUSH Last Admin: 07/25/19 09:22 Dose: 10 ml Documented by: Medical Necessity - Tobacco Use Smoking Status: Former smoker Tobacco Use: Non-smoker Assessment/Plan All Active Problems TIA (transient ischemic attack) (Acute) PAF (paroxysmal atrial fibrillation) (Acute) Near syncope (Acute) Bradycardia (Acute) 1. Acute stroke-MRI of brain shows small acute to early subacute infarct in the left posterior temporal and occipital lobes. Continue aspirin, Eliquis, statin. PT/OT/ST. echocardiogram demonstrates an EF of 60%, stage III diastolic dysfunction, mild tricuspid valve insufficiency, moderate pulmonary hypertension with a artery systolic pressure 50 mmHg. MRA of neck shows no evidence of hemodynamically significant carotid stenosis. Neurology consult pending. Recommend 30-day event recorder and PSG as outpatient. 2. Mild bradycardia-stable. Not on rate limiting regimen. Monitor telemetry. Orthostatic vitals negative. 3. PAF-continue Eliquis, not on rate limiting medication. 4. HTN-stable, continue home Lasix regimen. 5. HLD-increase to high-dose statin. 6. Chronic diastolic CHF-echocardiogram demonstrates an EF of 60%, stage III diastolic dysfunction, mild tricuspid valve insufficiency, moderate pulmonary hypertension with a artery systolic pressure 50 mmHg. 7. Anxiety/Depression-continue celexa regimen. 8. RLS- continue home requip regimen. DVT prophylaxis-Eliquis This patient was seen by JOAQUÍN Still under the supervision of Dr. Cadena. <Nancy Cadena - Last Filed: 07/25/19 13:03> - Physical Exam Vitals/I&O's: Vital Signs Temp Pulse Resp BP Pulse Ox 98.4 F 51 L 18 104/56 L 93 07/25/19 09:17 07/25/19 09:17 07/25/19 09:17 07/25/19 09:17 07/25/19 09:17 Oxygen Delivery Method Room Air Weight: 89 kg Body Mass Index (BMI) 27.3 Finger Stick Blood Glucose 80 Orthostatic Vital Signs Start: 07/24/19 09:57 Freq: q24h Status: Active Protocol: Activity Type Activity Date Activity User E-Sign Co-Sign Detail Recorded Client Recorded Date Recorded By Document 07/25/19 06:20 [facility] [id number] 07/25/19 06:26 [facility] 07/25/19 06:20 Orthostatic Vitals Standing -Blood Pressure (90/60-120/80) 120/61 -Extremity Use Left Arm -Pulse Rate (60-100) 58 L Sitting -Blood Pressure (90/60-120/80) 114/60 -Extremity Use Left Arm -Pulse Rate (60-100) 50 L Lying -Blood Pressure (90/60-120/80) 106/61 -Extremity Use Left Arm -Pulse Rate (60-100) 46 L Intake and Output for Last 24 Hours 07/23/19 07/24/19 07/25/19 23:59 23:59 23:59 Intake Total 2160 / 2160 360 / 360 Output Total 325 / 325 Balance 1835 / 1835 360 / 360 Current Medications Acetaminophen (Tylenol) 650 mg PO Q6H PRN PRN PRN Reason: Non-cardiac pain (mod-severe) Last Admin: 07/24/19 22:36 Dose: 650 mg Documented by: Al Hydroxide/Mg Hydroxide (Mylanta Ii) 15 - 30 ml PO Q4H PRN PRN PRN Reason: INDIGESTION Albuterol Sulfate (Ventolin Aerosols) 2.5 mg INHALATION Q2H PRN PRN PRN Reason: dyspnea, wheezing Apixaban (Eliquis) 5 mg PO BID [facility] Last Admin: 07/25/19 09:22 Dose: 5 mg Documented by: [facility], [facility] Last Admin: 07/25/19 09:22 Dose: 81 mg Documented by: Atorvastatin Calcium (Lipitor) 40 mg PO QHS [facility] Last Admin: 07/24/19 22:37 Dose: 40 mg Documented by: Citalopram Hydrobromide (Celexa) 40 mg PO DAILY [facility] Last Admin: 07/25/19 09:22 Dose: 40 mg Documented by: Dextrose (D50w Syringe) 0 gm IV X1 PRN; Protocol PRN Reason: Hypoglycemia Furosemide (Lasix) 40 mg PO DAILY [facility] Last Admin: 07/25/19 09:22 Dose: 40 mg Documented by: Glucagon () 1 mg IM .X1 PRN PRN Reason: Hypoglycemia Hydralazine HCl (Apresoline Iv) 10 mg IV Q4H PRN PRN PRN Reason: SBP > 160 Magnesium Hydroxide (Milk Of Magnesia) 30 ml PO DAILY PRN PRN Reason: Constipation Melatonin (Melatonin) 3 mg PO QHS PRN PRN PRN Reason: INSOMNIA Last Admin: 07/24/19 22:36 Dose: 3 mg Documented by: Nitroglycerin (Nitrostat) 0.4 mg SUBLINGUAL Q5M PRN PRN Reason: CARDIAC/CHEST PAIN Ondansetron HCl (Zofran) 4 mg IV Q8H PRN PRN PRN Reason: NAUSEA/VOMITING Last Admin: 07/24/19 18:48 Dose: 4 mg Documented by: Pramipexole Dihydrochloride (Mirapex) 0.5 mg PO DAILY PRN PRN PRN Reason: RESTLESS LEGS Sodium Chloride () 10 - 40 ml IV UD PRN PRN Reason: SALINE FLUSH Last Admin: 07/25/19 09:22 Dose: 10 ml Documented by: Assessment/Plan This patient was seen in conjunction with Di Bermeo SOYBEAN GROWER. I have independently interviewed and examined the patient and reviewed pertinent historical, laboratory, and other data. Please refer to her note for patient's presentation, findings, and recommendations. Patient was seen and examined. He denies any new complaints. No new complaints. No acute events overnight. Vitals were reviewed -stable Physical Exam: Gen: Appears comfortable, not pale, not jaundiced, alert oriented x3 CVS:HS I +II, regular, no murmurs RESP: Color clear to auscultation GI: BS present and normal, nontender, no palpable organs EXT:No edema Labs reviewed: ASSESSMENT: 1. Acute stroke 2. Bradycardia 3. Paroxysmal atrial fibrillation 4. Hypertension 5. Chronic Diastolic heart failure 6. Hyperlipidemia Meds reviewed Plan: Continue on aspirin, statin and Eliquis Patient will need a 30-day event monitor on discharge Would need outpatient sleep study Code Visit Inpatient E&M: [id number] [facility] Hosp L2
[2019-07-25] MEDS: Magnesium Hydroxide 30 ML UDC PO (14:05)
[2019-07-25] MEDS: Acetaminophen 325 MG Tablet 650 MG PO ×2 (14:06→21:13)
[2019-07-25] MEDS: MELATONIN 3 MG TABLET PO (21:09)
[2019-07-25] MEDS: Atorvastatin Calcium 40 MG Tablet PO (21:09)
[2019-07-26] VITALS (7 sets, daily range): BP systolic 111–116; BP diastolic 50–60; PULSE 47–66; RESP 16–18; TEMP 36.6–36.7; O2SAT 90–93; BMI 27.3
[2019-07-26] MEDS: Acetaminophen 325 MG Tablet 650 MG PO ×2 (03:32→09:34)
[2019-07-26] MEDS: Citalopram 40 MG TABLET PO (09:33)
[2019-07-26] MEDS: Furosemide 40 MG Tablet PO (09:33)
[2019-07-26] MEDS: Aspirin 81 MG TAB.CHEW PO (09:34)
[2019-07-26] MEDS: APIXABAN 5 MG TABLET PO (09:35)
--- NOTE | 2019-07-26 11:39 | PCM.DC ---
- Discharge Diagnoses Current Active Problems: Current Active and Chronic Problems TIA (transient ischemic attack) (Acute) CHF (congestive heart failure) (Chronic) PAF (paroxysmal atrial fibrillation) (Acute) Hypertension (Chronic) Hyperlipidemia (Chronic) RLS (restless legs syndrome) (Chronic) Near syncope (Acute) Bradycardia (Acute) Anxiety and depression (Chronic) Former tobacco use (Chronic) You will use the following diet at home:: Cardiac Discharge Activity: Return to Normal Activity Call your doctor if you observe: Shortness of breath, Dizziness, Fainting spells, Chest pain Allergies/Adverse Reactions: Allergies hydromorphone [From Dilaudid] Adverse Reaction (Verified 07/23/19 19:48) Itching Medications to take at Discharge Aspirin 81 mg PO DAILY 07/23/19 Cholecalciferol (Vitamin D3) [Vitamin D3] 2,000 unit PO DAILY 07/23/19 Citalopram [Celexa] 40 mg PO DAILY 07/23/19 Furosemide [Lasix] 40 mg PO DAILY 07/23/19 Nitroglycerin 0.4 mg SL X1 PRN 07/23/19 Ropinirole HCl 1 mg PO PRN PRN 07/23/19 Simvastatin [Zocor] 40 mg PO QHS 07/23/19 Apixaban [Eliquis] 5 mg PO BID tab 07/26/19 Primary Care Physician: [facility] ,Out of [NON-STAFF] - Please follow up with your Primary Care Physician in: 1 Week Test Results: Test results from this visit will be discussed in further detail at your follow-up appointment, if applicable. Please Follow Up With: Pepe Varghese MD - Neurology When: 2-4 Weeks Please Follow Up With: Primary Stone Splitter When: 1-2 Weeks Proposed Discharge Date: 07/26/19
--- NOTE | 2019-07-26 11:41 | PCM.DC.SUM ---
<Di Bermeo - Last Filed: 07/26/19 11:49> Discharge Date and Diagnosis Date of Admission: 07/23/19 Date of Discharge: 07/26/19 - Primary Discharge Diagnosis Active and Suspected Problems 1. TIA 2. Mild bradycardia 3. PAF 4. HTN 5. HLD 6. Chronic diastolic CHF 7. Anxiety/Depression 8. RLS - Secondary Discharge Diagnosis Chronic Problems CHF (congestive heart failure) (Chronic) Hypertension (Chronic) Hyperlipidemia (Chronic) RLS (restless legs syndrome) (Chronic) Anxiety and depression (Chronic) Former tobacco use (Chronic) Hospital Course and Treatment Imaging Results: Diagnostic Data Brain CT 07/23/19 19:47 IMPRESSION: No acute intracranial findings. Negative for hemorrhage, hematoma or mass density. Negative for demarcation of a new nonhemorrhagic infarct zone. Mild involutional changes for age. Incidental minimal sinus findings as stated above. Electronically Signed: Olga Oh MD at 20:19 EST , Service support , Chest X-Ray 07/23/19 20:05 IMPRESSION: Generalized hyperexpansion. Chronic interstitial changes and chronic pleural thickening. Elevated left diaphragm with a discrete opacity above the diaphragm in the left lung most likely fibrotic lung/scarring. Scarring of the left costophrenic angle. No prior films available for comparison. Normal cardiac size without venous congestion. Mild elongation of the thoracic aorta. Anterior cervical spine fusion hardware included in the [id number]. Status post right rotator cuff surgery. Electronically Signed: Olga Oh MD at 20:21 EST , Service support , Brain MRI 07/24/19 21:43 IMPRESSION: Small cortical-based restricted diffusion in the left posterior temporal and occipital lobes noted. Differential considerations include a small acute to early subacute infarct, encephalitides or postsurgical changes. No associated hemorrhage or mass effect. Chronic small vessel disease and age-related involutional changes. Electronically Signed: Curt Wyatt, at 12:24 EST Tel , Service support , Head MRA 07/24/19 21:43 Neck MRA 07/24/19 21:43 ADDENDUM: 07/24/[id number] Felton- Neurology Operations: None Procedures: 2-D Echocardiogram Summary of Care Provided: The patient is a 78 year old M admitted 07/23/2019 due to expressive aphasia, confusion. 1. TIA, stroke ruled out-MRI of brain shows small acute to early subacute infarct in the left posterior temporal and occipital lobes. Neurology consulted and suspects TIA, does not feel MRI demonstrated stroke. Continue aspirin, Eliquis, statin. Patient's home med list indicates patient was only taking Eliquis 5 mg daily? Discussed with patient that he needs to take Eliquis 5 mg twice daily. Echocardiogram demonstrates an EF of 60%, stage III diastolic dysfunction, mild tricuspid valve insufficiency, moderate pulmonary hypertension with a artery systolic pressure 50 mmHg. MRA of neck shows no evidence of hemodynamically significant carotid stenosis. Follow-up with neurology in 2 to 4 weeks. Follow-up with primary care physician in 1 week. 2. Mild bradycardia-stable. Not on rate limiting regimen. Orthostatic vitals negative. 3. PAF-continue Eliquis, not on rate limiting medication. 4. HTN-stable, continue home Lasix regimen. 5. HLD-continue simvastatin 40 mg p.o. nightly. 6. Chronic diastolic CHF-echocardiogram demonstrates an EF of 60%, stage III diastolic dysfunction, mild tricuspid valve insufficiency, moderate pulmonary hypertension with a artery systolic pressure 50 mmHg. 7. Anxiety/Depression-continue celexa regimen. 8. RLS- continue home requip regimen. General: Alert, Oriented x3, Cooperative HEENT: Atraumatic, PERRLA, EOMI, Normocephalic Neck: Supple, No JVD, Negative Carotid Bruits Lungs: Clear to auscultation, Normal air movement Cardiovascular: Regular Rhythm, Normal S1, Normal S2, Bradycardic Abdomen: Bowel Sounds Present, Soft, Non Tender, Non-Distended Extremities: No clubbing, No cyanosis, No edema, Capillary Refill Less than 3 Seconds Skin: No rashes, No breakdown Musculoskeletal: No Tenderness to Palpation of Joints or Extremities Neurological: Cranial nerves II-XII grossly intact, Neuro grossly intact Psych/Mental Status: Normal Affect, Appropriate Patient seen and examined prior to discharge. Physical assessment as noted above. Patient is stable for discharge with follow up recommendations as noted above. This patient was seen by JOAQUÍN Still under the supervision of Dr. Cadena. - Physical Exam Vitals/I&O's: Vital Signs Temp Pulse Resp BP Pulse Ox 97.8 F 56 L 16 112/60 92 07/26/19 09:29 07/26/19 09:29 07/26/19 09:29 07/26/19 09:29 07/26/19 09:29 Oxygen Delivery Method Room Air Weight: 196 lb 3.382 oz Body Mass Index (BMI) 27.3 Finger Stick Blood Glucose 80 Orthostatic Vital Signs Start: 07/24/19 09:57 Freq: q24h Status: Active Protocol: Activity Type Activity Date Activity User E-Sign Co-Sign Detail Recorded Client Recorded Date Recorded By Document 07/25/19 06:20 [facility] [id number] 07/25/19 06:26 [facility] 07/25/19 06:20 Orthostatic Vitals Standing -Blood Pressure (90/60-120/80) 120/61 -Extremity Use Left Arm -Pulse Rate (60-100) 58 L Sitting -Blood Pressure (90/60-120/80) 114/60 -Extremity Use Left Arm -Pulse Rate (60-100) 50 L Lying -Blood Pressure (90/60-120/80) 106/61 -Extremity Use Left Arm -Pulse Rate (60-100) 46 L Intake and Output for Last 24 Hours 07/24/19 07/25/19 07/26/19 23:59 23:59 23:59 Intake Total 2160 / 2160 957 / 957 587 / 587 Output Total 325 / 325 Balance 1835 / 1835 957 / 957 587 / 587 Laboratory Results 07/26/19 11:03: Ethyl Alcohol Pending Current Medications Acetaminophen (Tylenol) 650 mg PO Q6H PRN PRN PRN Reason: Non-cardiac pain (mod-severe) Last Admin: 07/26/19 09:34 Dose: 650 mg Documented by: Al Hydroxide/Mg Hydroxide (Mylanta Ii) 15 - 30 ml PO Q4H PRN PRN PRN Reason: INDIGESTION Albuterol Sulfate (Ventolin Aerosols) 2.5 mg INHALATION Q2H PRN PRN PRN Reason: dyspnea, wheezing Apixaban (Eliquis) 5 mg PO BID [facility] Last Admin: 07/26/19 09:35 Dose: 5 mg Documented by: Aspirin (Aspirin, Baby) 81 mg PO DAILYCM [facility] Last Admin: 07/26/19 09:34 Dose: 81 mg Documented by: Atorvastatin Calcium (Lipitor) 40 mg PO QHS [facility] Last Admin: 07/25/19 21:09 Dose: 40 mg Documented by: Citalopram Hydrobromide (Celexa) 40 mg PO DAILY [facility] Last Admin: 07/26/19 09:33 Dose: 40 mg Documented by: Dextrose (D50w Syringe) 0 gm IV X1 PRN; Protocol PRN Reason: Hypoglycemia Furosemide (Lasix) 40 mg PO DAILY [facility] Last Admin: 07/26/19 09:33 Dose: 40 mg Documented by: Glucagon () 1 mg IM .X1 PRN PRN Reason: Hypoglycemia Hydralazine HCl (Apresoline Iv) 10 mg IV Q4H PRN PRN PRN Reason: SBP > 160 Magnesium Hydroxide (Milk Of Magnesia) 30 ml PO DAILY PRN PRN Reason: Constipation Last Admin: 07/25/19 14:05 Dose: 30 ml Documented by: Melatonin (Melatonin) 3 mg PO QHS PRN PRN PRN Reason: INSOMNIA Last Admin: 07/25/19 21:09 Dose: 3 mg Documented by: Nitroglycerin (Nitrostat) 0.4 mg SUBLINGUAL Q5M PRN PRN Reason: CARDIAC/CHEST PAIN Ondansetron HCl (Zofran) 4 mg IV Q8H PRN PRN PRN Reason: NAUSEA/VOMITING Last Admin: 07/24/19 18:48 Dose: 4 mg Documented by: Pramipexole Dihydrochloride (Mirapex) 0.5 mg PO DAILY PRN PRN PRN Reason: RESTLESS LEGS Sodium Chloride () 10 - 40 ml IV UD PRN PRN Reason: SALINE FLUSH Last Admin: 07/25/19 09:22 Dose: 10 ml Documented by: Discharge Diet: Low fat/ Low Cholesterol Discharge Activity: Return to Normal Activity Call your doctor if you observe: Shortness of breath, Dizziness, Fainting spells, Chest pain Home Medications: Medications to take at Discharge Aspirin 81 mg PO DAILY 07/23/19 Cholecalciferol (Vitamin D3) [Vitamin D3] 2,000 unit PO DAILY 07/23/19 Citalopram [Celexa] 40 mg PO DAILY 07/23/19 Furosemide [Lasix] 40 mg PO DAILY 07/23/19 Nitroglycerin 0.4 mg SL X1 PRN 07/23/19 Ropinirole HCl 1 mg PO PRN PRN 07/23/19 Simvastatin [Zocor] 40 mg PO QHS 07/23/19 Apixaban [Eliquis] 5 mg PO BID tab 07/26/19 Primary Care Physician: [facility] Doctor,Out of [NON-STAFF] - Please follow up with your Primary Care Physician in: 1 Week Please Follow Up With: Pepe Varghese MD - Neurology When: 2-4 Weeks Please Follow Up With: Primary Front Office Coordinator When: 1-2 Weeks Disposition: Home Minutes spent on discharge:: 35 Patient Condition:: Stable Medical Necessity - Tobacco Use Smoking Status: Former smoker Tobacco Use: Non-smoker Meaningful Use Info Meaningful Use Diagnoses (Choose all that apply): None applicable <Nancy Cadena - Last Filed: 07/26/19 15:39> Discharge Date and Diagnosis - Secondary Discharge Diagnosis Chronic Problems CHF (congestive heart failure) (Chronic) Hypertension (Chronic) Hyperlipidemia (Chronic) RLS (restless legs syndrome) (Chronic) Anxiety and depression (Chronic) Former tobacco use (Chronic) Hospital Course and Treatment Summary of Care Provided: This patient was seen in conjunction with Di Bermeo NP. I have independently interviewed and examined the patient and reviewed pertinent historical, laboratory, and other data. Please refer to her note for patient's presentation, findings, and recommendations. 78-year-old with past medical history of paroxysmal atrial fibrillation, on Eliquis, hypertension, hyperlipidemia, who comes in with complaints of problems present himself as well as a sensation of near syncope with bilateral hand tingling. Patient admitting NIH SS score was 0. His CT of the head showed no acute findings. His admitting blood work was unremarkable. Patient was admitted to the telemetry floor and underwent MRI of the brain as well as MRA of the head and neck. The official reading of the MRI was suggestive of a small stroke of his left posterior temporal and occipital lobes. MRI of the head and neck was unremarkable. Patient was continued on aspirin and Eliquis, neurology was consulted. Their recommendation was this was not a stroke but rather TIA. He was continued on aspirin and Eliquis and will follow up with his neurologist in outpatient. On the day of discharge, patient was seen and examined. No new complaints. No acute events overnight. Vitals were reviewed -stable Physical Exam: Gen: Appears comfortable, not pale, not jaundiced, alert oriented x3 CVS:HS I +II, regular, no murmurs RESP: Color clear to auscultation GI: BS present and normal, nontender, no palpable organs EXT:No edema CLINICAL NURSE REVIEWER: CN II-XII intact, power is 5/5 in all 4 limbs, normal tone, intact sensation - Physical Exam Vitals/I&O's: Vital Signs Temp Pulse Resp BP Pulse Ox 97.8 F 52 L 16 116/55 L 92 07/26/19 13:08 07/26/19 13:08 07/26/19 13:08 07/26/19 13:08 07/26/19 13:08 Oxygen Delivery Method Room Air Weight: 89 kg Body Mass Index (BMI) 27.3 Finger Stick Blood Glucose 80 Intake and Output for Last 24 Hours 07/24/19 07/25/19 07/26/19 23:59 23:59 23:59 Intake Total 2160 / 2160 957 / 957 587 / 587 Output Total 325 / 325 Balance 1835 / 1835 957 / 957 587 / 587 Laboratory Results 07/26/19 11:03: Ethyl Alcohol < 3.0 Code Visit Inpatient E&M: [id number] Disch Hosp
--- NOTE | 2019-07-26 11:44 | PHA.DC.MR ---
Pharmacy Service has performed discharge medication reconciliation for this patient. Home Medications Aspirin 81 mg PO DAILY 07/23/19 Cholecalciferol (Vitamin D3) [Vitamin D3] 2,000 unit PO DAILY 07/23/19 Citalopram [Celexa] 40 mg PO DAILY 07/23/19 Furosemide [Lasix] 40 mg PO DAILY 07/23/19 Nitroglycerin 0.4 mg SL X1 PRN 07/23/19 Ropinirole HCl 1 mg PO PRN PRN 07/23/19 Simvastatin [Zocor] 40 mg PO QHS 07/23/19 Apixaban [Eliquis] 5 mg PO BID tab 07/26/19 The patient's discharge medication list was reviewed for discrepancies and discrepancies were resolved.
--- NOTE | 2019-07-26 11:56 | CASEMGMT ---
DARA HERRERA assessment: Face to Face with patient for initial transition planning/care coordination assessment. DARA HERRERA introduced self and role at [facility], pt voices understanding and consents to assessment at this time. Pt is sitting up in bed in no distress at this time. Pt is A/Ox4 at this time and answers all questions appropriately at this time. Care providers, pharmacy, and demographics verified/updated at this time. PCP: [facility] Specialists: [facility] [place] Preferred Pharmacy: [facility] [place] Insurance: [facility] A/B, MMO Prescription Benefit: [employer] Living Will/HPOA: Pt states has LW/HPOA and is aware that they are not on file at [facility] at this time. Pt states that his , Michelle Dukes, is HPOA. LNOK: Michelle Dukes, ; Maritza Heredia, daughter Living Arrangements: Pt states he lives with and daughter in 1 story home and states no concerns at home at this time. Pt states is independent with ADL's. Transportation: Pt states drives self and states no concerns at home at this time. DME/HHC: Pt states no current DME or need for any at this time. Pt states no hx of HHC or SNF in the past. Pt states no concerns with going home at time of discharge. Pt states is retired. Pt states quit smoking in 1990 and states drinks 4-6beers daily. Pt states no further concerns/needs at this time. CM to follow for any further discharge planning/needs. Advised pt to ask for CM if any further questions/concerns/needs arise, voices understanding. Pt Goal: Home Plan: [place] DARA HERRERA
[2019-07-26 11:57] LABS: Alcohol, Blood (Medical)-Serum < 3.0 mg/dL
--- NOTE | 2019-07-26 12:13 | CON.PCM_ITS ---
Problem List (1) TIA (transient ischemic attack) Status: Acute Reason for Consult Date of Consultation: 07/26/19 Reason for Consultation: TIA History of Present Illness: The patient is a 78 year old M with PMH HTN, HLD, PAF on Eliquis, CHF, RLS, anxiety/depression, ex-deep tobacco abuse, EtOH abuse admitted with bilateral hand tingling and speech disturbances. Per patient he had the symptoms on 07/23/2019 in the evening when he suddenly felt that he had tingling in both the hands, and had speech disturbances where he could not get his words out, and the symptoms lasted for about 15 minutes before resolving completely, NIHSS on adm ission was 0, patient was not a TPA candidate, per patient he is on Eliquis for A. fib but is noncompliant with the medication, and he sometimes forgets to take the medication, he forgot to take the medication about a day or 2 prior to this symptoms, is also on aspirin and per patient he has been recommended to be on aspirin and Eliquis by his operations vocational instructor. Patient denies any frequent falls, does not use any cane or walker to ambulate, does drive and does not need any assistance for his ADLs. MRI brain images reviewed-reported by radiology to show small cortical-based restricted diffusion in the left posterior temporal and occipital lobes, but on my review of images there does not seem to be any diffusion restriction to suggest stroke and could be artifact, MRA head/neck reviewed-no hemodynamically significant stenosis or occlusion. Past Medical History Past Medical History (Chronic Problems): Chronic Problems CHF (congestive heart failure) (Chronic) Hypertension (Chronic) Hyperlipidemia (Chronic) RLS (restless legs syndrome) (Chronic) Anxiety and depression (Chronic) Former tobacco use (Chronic) Allergies hydromorphone [From Dilaudid] Adverse Reaction (Verified 07/23/19 19:48) Itching Home Medications: Ambulatory Orders Medication Instructions Recorded Aspirin 81 mg PO DAILY 07/23/19 Cholecalciferol (Vitamin D3) 2,000 unit PO DAILY 07/23/19 [Vitamin D3] Citalopram [Celexa] 40 mg PO DAILY 07/23/19 Furosemide [Lasix] 40 mg PO DAILY 07/23/19 Nitroglycerin 0.4 mg SL X1 PRN 07/23/19 Ropinirole HCl 1 mg PO PRN PRN 07/23/19 Simvastatin [Zocor] 40 mg PO QHS 07/23/19 Apixaban [Eliquis] 5 mg PO BID tab 07/26/19 Surgical History: - - Intervention for gastric ulcer, tonsillectomy, cataract surgery, lumbar back and neck surgery, right rotator cuff surgery. Psychiatric History: Anxiety, Depression Lives: Spouse/ Significant Other Smoking Status: Former smoker Tobacco Use: Non-smoker Alcohol: Heavy Drugs: None - *Family History Maternal History Items: - - Patient notes a maternal family history of cirrhosis, concurrent alcohol abuse history. Paternal History Items: - - Patient notes a paternal hand family history of stroke. Review of Systems Constitutional: Reports: - - Complete ROS negative except as documented in HPI - Physical Exam Vitals/I&O's: Vital Signs Temp Pulse Resp BP Pulse Ox 97.8 F 50 L 16 112/60 92 07/26/19 09:29 07/26/19 11:51 07/26/19 09:29 07/26/19 09:29 07/26/19 09:29 Oxygen Delivery Method Room Air Weight: 89 kg Body Mass Index (BMI) 27.3 Finger Stick Blood Glucose 80 Orthostatic Vital Signs Start: 07/24/19 09:57 Freq: q24h Status: Active Protocol: Activity Type Activity Date Activity User E-Sign Co-Sign Detail Recorded Client Recorded Date Recorded By Document 07/25/19 06:20 [facility] [id number] 07/25/19 06:26 MICHAEL 07/25/19 06:20 Orthostatic Vitals Standing -Blood Pressure (90/60-120/80) 120/61 -Extremity Use Left Arm -Pulse Rate (60-100) 58 L Sitting -Blood Pressure (90/60-120/80) 114/60 -Extremity Use Left Arm -Pulse Rate (60-100) 50 L Lying -Blood Pressure (90/60-120/80) 106/61 -Extremity Use Left Arm -Pulse Rate (60-100) 46 L Intake and Output for Last 24 Hours 07/24/19 07/25/19 07/26/19 23:59 23:59 23:59 Intake Total 2160 / 2160 957 / 957 587 / 587 Output Total 325 / 325 Balance 1835 / 1835 957 / 957 587 / 587 General: Alert HEENT: Normocephalic Neck: Supple Lungs: Normal air movement Cardiovascular: Normal S1, Normal S2 Abdomen: Bowel Sounds Present Extremities: No cyanosis Neurological: - - Conscious, alert, AOA x3, CN II to XII grossly intact, power 5/5 both upper and lower extremities, plantars B/L flexor, no pronator drift, no sensory loss, no cerebellar signs, gait deferred, reflexes + B/L B/S/T/K/A, No NR, fundus not visualized, NIHSS 0 at present, mRS 0 at baseline Psych/Mental Status: Normal Affect Laboratory Results 07/26/19 11:03: Ethyl Alcohol < 3.0 Current Medications Acetaminophen (Tylenol) 650 mg PO Q6H PRN PRN PRN Reason: Non-cardiac pain (mod-severe) Last Admin: 07/26/19 09:34 Dose: 650 mg Documented by: Al Hydroxide/Mg Hydroxide (Mylanta Ii) 15 - 30 ml PO Q4H PRN PRN PRN Reason: INDIGESTION Albuterol Sulfate (Ventolin Aerosols) 2.5 mg INHALATION Q2H PRN PRN PRN Reason: dyspnea, wheezing Apixaban (Eliquis) 5 mg PO BID [facility] Last Admin: 07/26/19 09:35 Dose: 5 mg Documented by: [facility], [facility] Admin: 07/26/19 09:34 Dose: 81 mg Documented by: Atorvastatin Calcium (Lipitor) 40 mg PO QHS [facility] Last Admin: 07/25/19 21:09 Dose: 40 mg Documented by: Citalopram Hydrobromide (Celexa) 40 mg PO DAILY [facility] Last Admin: 07/26/19 09:33 Dose: 40 mg Documented by: Dextrose (D50w Syringe) 0 gm IV X1 PRN; Protocol PRN Reason: Hypoglycemia Furosemide (Lasix) 40 mg PO DAILY [facility] Last Admin: 07/26/19 09:33 Dose: 40 mg Documented by: Glucagon () 1 mg IM .X1 PRN PRN Reason: Hypoglycemia Hydralazine HCl (Apresoline Iv) 10 mg IV Q4H PRN PRN PRN Reason: SBP > 160 Magnesium Hydroxide (Milk Of Magnesia) 30 ml PO DAILY PRN PRN Reason: Constipation Last Admin: 07/25/19 14:05 Dose: 30 ml Documented by: Melatonin (Melatonin) 3 mg PO QHS PRN PRN PRN Reason: INSOMNIA Last Admin: 07/25/19 21:09 Dose: 3 mg Documented by: Nitroglycerin (Nitrostat) 0.4 mg SUBLINGUAL Q5M PRN PRN Reason: CARDIAC/CHEST PAIN Ondansetron HCl (Zofran) 4 mg IV Q8H PRN PRN PRN Reason: NAUSEA/VOMITING Last Admin: 07/24/19 18:48 Dose: 4 mg Documented by: Pramipexole Dihydrochloride (Mirapex) 0.5 mg PO DAILY PRN PRN PRN Reason: RESTLESS LEGS Sodium Chloride () 10 - 40 ml IV UD PRN PRN Reason: SALINE FLUSH Last Admin: 07/25/19 09:22 Dose: 10 ml Documented by: Assessment/Plan All Active Problems TIA (transient ischemic attack) (Acute) PAF (paroxysmal atrial fibrillation) (Acute) Near syncope (Acute) Bradycardia (Acute) The patient is a 78 year old M with PMH HTN, HLD, PAF on Eliquis, CHF, RLS, anxiety/depression, ex-deep tobacco abuse, EtOH abuse admitted with bilateral hand tingling and speech disturbances. Per patient he had the symptoms on 07/23/2019 in the evening when he suddenly felt that he had tingling in both the hands, and had speech disturbances where he could not get his words out, and the symptoms lasted for about 15 minutes before resolving completely, NIHSS on admission was 0, patient was not a TPA candidate, per patient he is on Eliquis for A. fib but is noncompliant with the medication, and he sometimes forgets to take the medication, he forgot to take the medication about a day or 2 prior to this symptoms, is also on aspirin and per patient he has been recommended to be on aspirin and Eliquis by his operations vocational instructor. Patient denies any frequent falls, does not use any cane or walker to ambulate, does drive and does not need any assistance for his ADLs. MRI brain images reviewed-reported by radiology to show small cortical-based restricted diffusion in the left posterior temporal and occipital lobes, but on my review of images there does not seem to be any diffusion restriction to suggest stroke and could be artifact, MRA head/neck reviewed-no hemodynamically significant stenosis or occlusion. Impression Possible TIA but per radiology report MRI brain reported to show small cortical- based restricted diffusion in the left posterior temporal and occipital lobes Plan -On Aspirin 81 mg p.o. once daily and Eliquis 5 mg PO BID. Per patient he is on both aspirin and Eliquis per cardiology recommendation, bleeding risk discussed in detail with the patient and will defer further management to cardiology. Patient counseled to be compliant with his medications -Lipitor 40 mg PO q hs -MRI brain images reviewed-reported by radiology to show small cortical-based restricted diffusion in the left posterior temporal and occipital lobes, but on my review of images there does not seem to be any diffusion restriction to suggest stroke and could be artifact, MRA head/neck reviewed-no hemodynamically significant stenosis or occlusion -HbA1c 5.4, LDL 67 -TTE-EF 60%, left atrium moderately enlarged, no PFO. -Stroke risk factors discussed and stroke education provided -Counseled to quit alcohol as patient drinks about 4-6 beers every day -Thiamine 100 mg p.o. once daily -skilled nursing goal BP < 130/80 mmHg, goal LDL < 70 and goal Hba1c < 7% -PT/OT/ST -GI/DVT prophylaxis -Fall precautions -Further medical management per hospitalist team -Please call with questions if any -Follow-up with neurology in 4 weeks -Thank you for allowing us to participate in patient's care and management This note has been generated using [employer] dictation software. It may contain incorrect words, spellings and punctuation that were not noted in the review of the note prior to signing Code Visit Inpatient E&M: 99045 Init Hosp L3
--- NOTE | 2019-07-26 13:09 | CASEMGMT ---
Social Work PCU Reason for intervention: PHQ9 screening in light patient with concern for stroke or TIA Summary: Met with patient alone in room, introducing to self, role, and reason for visit. Patient agreeable to complete PHQ9 today. Patient with score of 8 (refer to attached link for details). Score indicative of mild depression symptoms present. Patient reports to have history of depression and anxiety, currently treated with Celexa. Patient does endorse feeling depresses or down regularly, but denies any feelings of hopelessness. Patient reports the lat 5 years patient has felt the best he has felt in years. Patient reports he still finds pleasure in things, enjoying work on cars and on his computer. Patient reports most concern with his eating habits reporting that, in his perception, he is eating too much before bedtime going from snacking to eating more like meals (3 eggs and veggies or a can of vegetables). Patient reports to feel he has gained weight and this is something would be of benefit for him to make changes with his eating patterns. Patient goes to sleep around midnight and sleeps until about 0930 in the morning. Patient endorses change in concentration watching television, but reports has been more focused on working on his computer. Patient denies any thoughts, plans, intent, or past attempts at suicide. Patient states I don't have enough guts to kill himself. Patient talked of a previous coworker who complete suicide years ago and the impact this had. Patient reports to still enjoy doing things for himself and his of 46 years, such as paying the bills, laundry, and grocery shopping. Patient lives with his , and their daughter moved in 5 years ago to help out as needed. The daughter a man 2 years ago and this change has went well per the patient. Patient reports when he is feeling stressed, down, or anxious he will work on his cars and likes to drive his mustang. Patient reports driving helps to relax patient and then patient feels more focused to return to day to day tasks. Patient indicates while having his daughter and son-in-law in the home is helpful, sometimes it is hard when they don't want patient to do things he used to do, such as leaf blowing. Patient reports overall though to feel his current mood is managed and will continue to take his Celexa. Patient denies that current symptoms are impacting ability to perform day to day tasks and if there is any change it is more due to any physical issues patient may have. Patient accepting of a pHQ9 resource guide which include local resources and supports should patient want to pursue counseling in conjunction with current medication regiment. Patient pleasant, talkative, does take some extended time to express self but did express self appropriately. Patient with appropriate affect, smiling at appropriate times in conversation. Good eye contact. Patient was reflective about his own father who due to complications to stroke and was the same age that patient is now; how this worries the patient's . Supportive listening and reflection offered, as well as encouragement for patient to adhere to physician recommendations for aftercare. Note, when hospital social worker in the room, the doctor came in and a reference was made that patient was only taking Eliquis once a day rather than prescribed twice daily. After doctor left, explored with patient as to if there was any reason patient was not taking the full dose, such as finances. Patient reports his 's diabetic supplies are costly, but that patient can afford his medications that things are sometime tight, reporting that the family is doing fine and managing okay. Plan: Patient to home when ready for discharge. PHQ9 resource guide given. Patient plans to continue on previously prescribed antidepressant. -ADRIENNE Spears, ORTHOTIC PRACTITIONER
== END 2019-07-26 13:58 | disposition home or self-care (01) | DRG 69 ==
LOC: ED 20:12 → PCU 21:16
PROVIDERS: Psychiatry & Neurology Neurology; Admitting Provider Family Medicine; Emergency Provider Emergency Medicine; Family Provider Family Medicine; PCP Family Medicine; Visit Provider Internal Medicine
DX: G45.9 Transient cerebral ischemic attack, unspecified (principal); I50.32 Chronic diastolic (congestive) heart failure; R00.1 Bradycardia, unspecified; I48.0 Paroxysmal atrial fibrillation; E78.5 Hyperlipidemia, unspecified; I11.0 Hypertensive heart disease with heart failure; F32.9 Major depressive disorder, single episode, unspecified; F41.9 Anxiety disorder, unspecified; G25.81 Restless legs syndrome; Z87.891 Personal history of nicotine dependence
CPT/HCPCS: 36415; 70450; 70544; 70547; 70551; 71045; 80048; 80061; 80320; 82962; 83036; 83735; 84439; 84443; 84484; 85025; 85610; 85730; 92523; 93005; 93306; 94762; 97161; 97166; 97802; 99251; 99285; J7030; A4216; G0463; G0480; J2405

== ENCOUNTER 2020-05-02 10:00 | Outpatient (RCR) | payer MEDICARE, OTHER, SELFPAY ==
[2019-07-26 09:35] VITALS: BMI 27.3
--- NOTE | 2020-04-10 10:25 | HP.PTEVAL ---
Patient's Visit Information FILOMENA JACOBSON is a 79 year old M referred to Physical Therapy by Dr. Kamlesh Regalado MD with a diagnosis of LUMBAR SPINAL STENOSIS. Date of Evaluation: 04/10/20 Physical Therapist: Adrianne Johnson PT, Cert MDT - Visit Plan Frequency: 2-3x /Week Duration: 4-6 Weeks Plan: AQUATIC THERPAY FOR PAIN RELIEF, POSTURE CORRECTION/STRENGTHENING, INSTRUCTION IN APPROPRIATE BODY MECHANICS AND ACTIVITY MODIFICATIONS. DLS STARTING WITH A NEUTRAL SPINE PROGRESSING ROM TOLERATED. ALFREDO LE ROM, STRETCHING AND STRENGTHENING. HEP INSTRUCTION. - Subjective Work/Leisure: RETIRED. Disability: NO. Present symptoms: LEFT SIDE/BACK PAIN. Present since: ABOUT MONTHS. Pain Scale: WORST 9-10/10, LEAST 0/10. Currently: 01/08. Commenced as a result of: NO APPARENT REASON. Symptoms at onset: SAME. Worse: WALKING, STANDING UP. Better: SITTING DOWN. Disturbed sleep: NO. Previous history/Previous treatment: BACK SURGERY FOR HNP IN THE . SEE'S A CHIROPRACTOR 2-3 TIMES A YEAR NEEDED. HX OF AQUATIC THERAPY AND PAIN MGMT AND AQUATIC THERAPY BEFORE SURGERY WITHOUT SUCCESS. Treatment this episode: PATIENT REPORTS HE HAS BEEN TO 3 DIFFERENT DOCTORS. HE REPORTS HE HAS HAD X-RAYS AND HE WAS TOLD HE WAS SEVERLY CONSTIPATED. TOOK LAXATIVES BUT DIDN'T GET BETTER. WENT TO A GI SPECIALIST AND HE SENT HIM TO [facility] FOR SUSPECTED BACK PROBLEM. REPORTS DR. REGALADO TOLD HIM THERE WAS NOTHING HE COULD DO SO HE SENT HIM TO PT. ALSO HAD MRI AND STATES HE WAS TOLD L4 IS PINCHING A NERVE. WENT TO THE CHIROPRACTOR X 3 VISITS SINCE THIS ONSET AND IT MADE IT PRETTY SORE. PATIENT REPORTS DR. REGALADO TOLD HIM SURGERY IS OUT BECAUSE HE DOESN'T THINK THERE IS ANYTHING HE CAN DO AND IT WOULD BE A WASTE OF TIME. REPORTS DR. REGALADO SAID THAT IF PT DOESN'T HELP HE CAN GO TO PAIN MGMT. Coughing/sneezing/straining: NEGATIVE. Gait: PATIENT REPORTS HE GETS PAIN IMMEDIATELY WHEN HE GETS UP TO WALK AND THE LONGER HE GOES THE MORE IT HURTS. BENDING OVER CAN HELP A LITTLE BIT BUT WORSE STANDING UP STRAIGHT. Difficulty initiating urinatin: NO. Accidents: NO. Unexplained weight loss: NO. Imaging: RECENT LUMBAR X-RAYS AND MRI - SPINAL STENOSIS. OTHER: PATIENT REPORTS HE WENT TO THE EMERGENCY DEPT ABOUT 3 WEEKS AGO FOR BACK PAIN AND THEY ENDED UP ADMITING HIM FOR 5 DAYS WITH PNEUMONIA. - Objective Sitting/Standing Posture: POOR. Lordosis: REDUCED. Lateral shift: RIGHT. Active Correction of posture: WORSE. Other Observations: THIS PATIENT AMBULATES INDEP'LY INTO PT WITHOUT ANY ASSISTIVE DEVICES OR LOSS OF BALANCE BUT WITH DECREASED CADANCE, INCREASED TRUNK FLEXION TO THE RIGHT AND SOB WITH APPROX 3OO FETT. IT TOOK SEVERAL MINUTES FOR HIS BREATHING TO RECOVER. DIFFICULTY TRANSITIONING FROM SIT TO STAND. Motor deficit: ALFREDO LE STRENGTH GROSSLY 5/5 WITH MMT'ING EXCEPT HIPS 4/5. Sensory deficit: ALFREDO LE LIGHT TOUCH SENSATION APPEARS INTACT AND SYMMETRICAL. ROM deficit: VERY TIGHT ALFREDO HIPS, HS'S AND GASTROC SOLEUS COMPLEX'S. Reflexes: NT. Dural Signs: NEGATIVE ALFREDO LE'S. Lumbar mvmt loss: flex - MIN. ext - CYNDIE. R SG - CYNDIE. L SG - CYNDIE. Core strength: POOR. Palpation: PATIENT HAS TENDERNESS WITH PALPATION IN THE LEFT ILIAC CREST REGION. OTHER: PATIENT GETS SOB EASILY WITH EXERSION. TREATMENT: NEUROMUSCULAR REEDUCATION - RETRAINING OF MVMT AND POSTURE FOR SITTING, LYING AND STANDING ACTIVITIES. - Goals Goal 1:: DECREASE C/O LEFT LOW BACK/SIDE PAIN Goal Time Frame: 4-6 Weeks Goal 2:: IMRPOVE PERSONAL CARE, LIFTING, WALKING, STANDING, SOCIAL LIFE, TRAVEL AND HOMEMAKING FUNCTION Goal Time Frame: 4-6 Weeks Goal 3:: INSTRUCT IN PROPHYLAXIS Goal Time Frame: 4-6 Weeks - Anticipated Interventions Patient/Client Instruction: Educate patient on: Condition, Plan of Care, Risk Factors, Benefits of Fitness Program For the Purpose of:: To improve self management Therapeutic Exercise to Include: Strength training, Endurance training, Body mechanics, Postural training, Flexibilty training, Gait and locomotor training, Neuromotor development, In an aquatic setting, Dynamic Lumbar Stabilization For the Purpose of:: To decrease pain, To increase ROM, To improve muscle performance and motor function, To increase tolerance to activity/condition/position, To improve ability of physical actions for home/community/work/leisure, To improve gait and locomotor functions Thank you for the opportunity to evaluate your patient. For Medicare and Medicare HMO plans, please review the plan of care and approve it. It will need to be FAXED BACK to us at [phone] for Medicare purposes. For Medicare only, by signing this I certify the plan of care. Please let me know if there are questions or concerns regarding this plan of care. Physician Signature: Date:
--- NOTE | 2020-07-03 17:29 | HP.PT.NRP ---
FILOMENA JACOBSON was seen in my office for initial evaluation on 04/10/20. The following Plan of Care was established for this patient: Initial Frequency: 2-3x /Week Initial Duration: 4-6 Weeks Patient/Client Instruction: Educate patient on: Condition, Plan of Care, Risk Factors, Benefits of Fitness Program For the Purpose of:: To improve self management Therapeutic Exercise to Include: Strength training, Endurance training, Body mechanics, Postural training, Flexibilty training, Gait and locomotor training, Neuromotor development, In an aquatic setting, Dynamic Lumbar Stabilization For the Purpose of:: To decrease pain, To increase ROM, To improve muscle performance and motor function, To increase tolerance to activity/condition/position, To improve ability of physical actions for home/community/work/leisure, To improve gait and locomotor functions This patient was last seen in our office 05/02/20. Pertinent comments regarding their Physical therapy will appear below: This patient has not returned to Physical Therapy and is appropriate to return to MD for further follow-up as needed. At this point I will be discontinuing this patient from physical therapy. I would be happy to see this patient again in the future if found appropriate by the physician. Thank you! Adrianne Johnson, PT, Cert MDT
== END 2020-05-02 19:00 | disposition home or self-care (01) ==
LOC: PT 10:00
PROVIDERS: PCP Family Medicine; Referring Provider Orthopaedic Surgery Orthopaedic Surgery of the Spine; Visit Provider Orthopaedic Surgery Orthopaedic Surgery of the Spine
DX: M48.061 Spinal stenosis, lumbar region without neurogenic claudication (principal)
CPT/HCPCS: 97112; 97113; 97162

== ENCOUNTER 2021-01-12 22:49 | Inpatient (IN) | payer MEDICARE, OTHER, SELFPAY ==
[2019-07-26 09:35] VITALS: BMI 27.3
[2021-01-12 22:50] VITALS: BP 117/79; PULSE 61; RESP 17; TEMP 36.6; O2SAT 98
[2021-01-12 22:54] VITALS: BP 117/79; PULSE 61; RESP 17; TEMP 36.6; O2SAT 95; BMI 27.3
--- NOTE | 2021-01-12 22:54 | EKG12_ITS ---
Test Reason : CP Blood Pressure : / mmHG Vent. Rate : 057 BPM Atrial Rate : 057 BPM P-R Int : 342 ms QRS Dur : 082 ms QT Int : 358 ms P-R-T Axes : 052 010 -16 degrees QTc Int : 348 ms Sinus bradycardia with 1st degree A-V block Nonspecific ST and T wave abnormality Abnormal ECG Confirmed by LORI ADLER, ELIZABETH ([id number]), state editor ANNABEL RINCON ([id number]) on 01/16/2021 9:32:04 AM Referred By: JASON Confirmed By:ELIZABETH SANDOVAL MD
--- NOTE | 2021-01-12 22:54 | CT_ITS ---
STUDY: CT CERVICAL SPINE WITHOUT CONTRAST REASON FOR EXAM: Male, 80 years old. fall, neck pain RADIATION DOSAGE (If Supplied By Facility): CTDIvol = ( ) mGy, DLP = ( ) mGycm TECHNIQUE: High resolution transaxial imaging was performed without contrast material. Sagittal and coronal images were reconstructed. Individualized dose optimization techniques were used for this CT. COMPARISON: None FINDINGS: Normal craniovertebral junction. Normal anterior atlantoaxial articulation. Normal odontoid process. Normal cervical lordosis. Normal vertebral bodies and posterior osseous elements. Anterior fusion hardware noted at C4-C7. No evidence of hardware failure or loosening. Moderate multilevel degenerative disc disease. No acute fracture or listhesis. No critical stenosis Normal visualized soft tissue structures. CT/Spine Cervical without Contras IMPRESSION: Multilevel degenerative changes, as described above. Postsurgical changes. No acute findings Electronically Signed: Garrett Cisneros DO at 23:44 EDT Tel , Service support ,
--- NOTE | 2021-01-12 22:54 | CT_ITS ---
STUDY: CT BRAIN WITHOUT CONTRAST REASON FOR EXAM: Male, 80 years old. fall, mental status change RADIATION DOSAGE (If Supplied By Facility): CTDIvol = ( 44.99 ) mGy, DLP = ( 846.73 ) mGycm TECHNIQUE: Transaxial CT imaging of the brain was performed without administration of intravenous contrast material. Individualized dose optimization techniques were used for this CT. COMPARISON: No relevant priors. FINDINGS: Normal soft tissue structures. Normal calvarium. There is mild cerebral atrophy with widening of the extra-axial spaces and ventricular dilatation. There are areas of decreased attenuation within the white matter tracts of the supratentorial brain, consistent with microvascular disease changes. Normal basal ganglia and thalami. Normal brainstem. Normal cerebellum. There is no intracranial hemorrhage. There are no findings of an acute ischemic infarction. Normal visualized paranasal sinuses. CT/Brain/Head without Contrast IMPRESSION: Chronic involutional changes of the brain. Electronically Signed: Garrett Cisneros DO at 23:43 EDT Tel , Service support ,
--- NOTE | 2021-01-12 22:54 | CT_ITS ---
STUDY: CT ABDOMEN AND PELVIS WITHOUT CONTRAST REASON FOR EXAM: Male, 80 years old. upper abdominal pain, n/v RADIATION DOSAGE (If Supplied By Facility): CTDIvol = ( 17.43 ) mGy, DLP = ( 966.90 ) mGycm TECHNIQUE: Transaxial images were obtained from the dome of the diaphragm to the symphysis pubis without oral contrast, and without intravenous contrast. Sagittal and coronal images were reconstructed. Individualized dose optimization techniques were used for this CT. COMPARISON: None. FINDINGS: Bibasilar airspace disease cardiomegaly Normal liver. Normal gallbladder and extrahepatic biliary system. Normal spleen. There is diffuse atrophy of the pancreas. Normal bilateral adrenal glands. There is mild cortical atrophy of the right kidney, consistent with chronic medical renal disease. There is mild cortical atrophy of the left kidney, consistent with chronic medical renal disease. Nonobstructing right lower pole nephrolith measuring 9 mm. There is a small hiatal hernia. Normal small intestine. There are multiple colonic diverticula consistent with diverticulosis. There is non-visualization of the appendix. There is diffuse atherosclerotic calcification of the abdominal aorta, without a demonstrated aneurysm. Normal inferior vena cava. Normal retroperitoneum. Normal urinary bladder. Normal visualized prostate gland. Normal abdominal wall. Normal osseous structures. CT/Abdomen/Pelvis without Cont IMPRESSION: Bibasilar airspace disease. Nonobstructing right nephrolithiasis. No acute findings of the abdomen and pelvis. Electronically Signed: Garrett Cisneros DO at 23:46 EDT Tel , Service support ,
--- NOTE | 2021-01-12 22:57 | EDS_ITS ---
HPI History of Present Illness Chief Complaint: Neuro S/Sx Informant: patient and EMS Onset/Context/Timing Onset: Today (JPTA at 2230 (20 min APPLICATION MANAGER)) Context: - (unknown except was in his kitchen) Narrative Narrative: Patient was drinking alcohol tonight, and fell in his kitchen, unknown if he hit his head or not. The patient does not remember the fall, he just remembers waking up on the floor and hurting all over. If he had any prodromal symptoms, he thinks he may have had chest pain which he still has, on the left side, aching nonpleuritic. He has a history of atrial fibrillation and is on aspirin and Eliquis. EMS was called, they called a prehospital stroke team. Upon evaluating the patient here in the emergency department, and discussing with EMS, it became clear that they called a stroke alert because the patient was altered. There were no lateralizing findings from EMS. [facility] Medical History Anxiety and depression CHF (congestive heart failure) Hyperlipidemia Hypertension PAF (paroxysmal atrial fibrillation) RLS (restless legs syndrome) TIA (transient ischemic attack) Home Medications aspirin 81 mg PO DAILY 07/23/19 [History Last Taken Unknown] cholecalciferol (vitamin D3) 1,000 unit PO DAILY 07/23/19 [History Last Taken Unknown] citalopram 40 mg PO DAILY 07/23/19 [History Last Taken Unknown] furosemide 40 mg PO DAILY 07/23/19 [History Last Taken Unknown] nitroglycerin 0.4 mg SL X1 PRN 07/23/19 [History Last Taken Unknown] ropinirole 1 mg PO PRN PRN 07/23/19 [History Last Taken Unknown] simvastatin 40 mg PO QHS 07/23/19 [History Last Taken Unknown] apixaban 5 mg PO BID tab 07/26/19 [Rx Last Taken Unknown] Vitamin B-12 5,000 units PO/SL DAILY 01/12/21 [History Last Taken Unknown] amiodarone 200 mg PO DAILY 01/12/21 [History Last Taken Unknown] metoprolol succinate 50 mg PO DAILY 01/12/21 [History Last Taken Unknown] mirtazapine 15 mg PO QHS 01/12/21 [History Last Taken Unknown] pantoprazole 40 mg PO DAILY 01/12/21 [History Last Taken Unknown] sucralfate 1 g PO QHS 01/12/21 [History Last Taken Unknown] Allergy/AdvReac Type Severity Reaction Status Date / Time hydromorphone [From Dilaudid] AdvReac Itching Verified 07/23/19 19:48 Social History Smoking Status: Former smoker ROS ROS ED Constitutional Constitutional ED: Denies chills or fever(s) Eyes Eyes: Denies change in vision or diplopia ENT ENT ED: Denies rhinorrhea or sore throat Cardiovascular Cardiovascular: Reports chest pain; Denies palpitations Respiratory/Chest Respiratory/Chest: Denies cough or dyspnea Gastrointestinal Gastrointestinal: Reports abdominal pain, nausea and vomiting; Denies diarrhea Genitourinary Genitourinary ED: Denies dysuria or hematuria Musculoskeletal Musculoskeletal: Reports neck pain; Denies back pain Integumentary Denies abscess or rash Neurologic Neurologic: Reports headache(s); Denies paresthesias or weakness Psychiatric Psychiatric: Denies anxiety or suicidal thoughts EXAM Physical Exam Const Vital Signs: 01/12/21 22:50 01/12/21 22:54 01/12/21 22:58 Temperature 98 F 98 F Temperature Source Temporal Temporal Pulse Rate 61 61 Respiratory Rate 17 17 Respiratory Effort Respiratory Pattern Blood Pressure 117/79 117/79 Blood Pressure Mean 91 91 Pulse Ox 98 95 Oxygen Delivery Method Room Air Room Air Room Air 01/12/21 23:50 Temperature Temperature Source Pulse Rate 59 L Respiratory Rate 13 Respiratory Effort Normal Non-Labored Respiratory Pattern Normal Blood Pressure 108/67 Blood Pressure Mean 80 Pulse Ox 91 Oxygen Delivery Method Room Air Positive well nourished and well developed General Appearance ED: well developed, NAD and other alert, intoxicated HEENT Reports TM's clear and moist mucous membranes normocephalic and atraumatic; Negative for trauma or tenderness Tympanic Membrane ED: Yes TM's clear bilateral Eyes PERRL and EOMs intact bilaterally Eyes Narrative: horiz nystagmus Neck full ROM and supple General: Negative for tenderness Chest Wall inspection of chest normal and palpation of chest normal Resp normal respiratory effort and clear to auscultation bilaterally Cardio regular rate, regular rhythm and no murmurs GI non-tender and non-distended Auscultation: normoactive bowel sounds Palpation: soft Back/Spine no CVA tenderness General Back: other FROM Extremity normal to inspection General Extremety ED: Negative for edema, pulses abnormal or tenderness General Extremity: Negative for edema or pulses abnormal Neuro CN's II-XII intact bilaterally and no sensory deficits noted Graciela Coma Scale: document GCS findings Spontaneous Obeys Commands Confused 14 Sensorium / Orientation: awake, alert, oriented to person and oriented to place; Negative for oriented to time Speech: Negative for expressive aphasia or receptive aphasia Motor Exam: strength 5/5 throughout Psych Psych Narrative: mildly intoxicated Speech: slurred Skin no rashes or lesions noted and no wounds MDM MDM MDM Narrative Medical decision making narrative: Patient's head CT is negative for anything acute, as is his abdomen/pelvis. Radiology did denote airspace disease in both bases, this has been seen on x-rays in the past, which showed what appeared to be chronic appearing fibrotic changes and/or scarring in the bases, and I feel this is consistent with that. His chest x-ray today was read as negative and on comparison, looks better than his old chest x-ray. He has had no symptoms of pneumonia recently, and therefore given the above I do not think these are acute infectious findings. His creatinine is slightly elevated compared to prior, his other labs are relatively unremarkable except for mild hypokalemia. His neck is sore and he has a headache, his scan shows no acute fractures. He is intoxicated. It is unknown if his intoxication led to a mechanical fall and a head injury with loss of consciousness, or if his chest discomfort preceded the collapse because of a transient dysrhythmia or other cardiac event. For these reasons, the plan will be to observe him in the hospital. Lab Data Attestation: I reviewed the patient's lab results. Labs: Laboratory Results - last 24 hr 01/12/21 01/12/21 01/12/21 22:55 22:55 22:55 WBC 8.5 RBC 4.04 L Hgb 13.8 Hct 40.2 MCV 99.5 H MCH 34.2 H MCHC 34.3 RDW Std Deviation 48.2 H RDW Coeff of Rudy 13.2 Plt Count 289 MPV 9.3 Immature Gran % (Auto) 0.800 Neut % (Auto) 67.9 Lymph % (Auto) 17.9 L [place] % (Auto) 11.4 H Eos % (Auto) 1.3 Baso % (Auto) 0.7 Absolute Neuts (auto) 5.8 Absolute Lymphs (auto) 1.52 Nucleated RBC % 0 Sodium 135 L Potassium 3.1 L Chloride 97 L Carbon Dioxide 31.0 Anion Gap 7 BUN 11 Creatinine 1.42 H Estim Creat Clear Calc 44.27 Est GFR (MDRD) Af Amer 62 Est GFR (MDRD) Non-Af 51 L BUN/Creatinine Ratio 7.7 L Glucose 81 Calcium 8.2 L Total Bilirubin 0.40 AST 22 ALT 24 Alkaline Phosphatase 96 Troponin I < 0.015 Total Protein 7.0 Albumin 3.1 L Globulin 3.9 Albumin/Globulin Ratio 0.8 L Lipase 51 L Urine Opiates Screen Urine Methadone Screen Ur Barbiturates Screen Ur Phencyclidine Scrn Ur Amphetamines Screen U Methamphetamin-MDMA U Benzodiazepines Scrn Urine Cocaine Screen U Cannabinoids Screen Ur Drug Screen Comment Ethyl Alcohol 242.0 01/12/21 23:30 WBC RBC Hgb Hct MCV MCH MCHC RDW Std Deviation RDW Coeff of Rudy Plt Count MPV Immature Gran % (Auto) Neut % (Auto) Lymph % (Auto) [place] % (Auto) Eos % (Auto) Baso % (Auto) Absolute Neuts (auto) Absolute Lymphs (auto) Nucleated RBC % Sodium Potassium Chloride Carbon Dioxide Anion Gap BUN Creatinine Estim Creat Clear Calc Est GFR (MDRD) Af Amer Est GFR (MDRD) Non-Af BUN/Creatinine Ratio Glucose Calcium Total Bilirubin AST ALT Alkaline Phosphatase Troponin I Total Protein Albumin Globulin Albumin/Globulin Ratio Lipase Urine Opiates Screen NEGATIVE Urine Methadone Screen NEGATIVE Ur Barbiturates Screen NEGATIVE Ur Phencyclidine Scrn NEGATIVE Ur Amphetamines Screen NEGATIVE U Methamphetamin-MDMA NEGATIVE U Benzodiazepines Scrn NEGATIVE Urine Cocaine Screen NEGATIVE U Cannabinoids Screen POSITIVE H Ur Drug Screen Comment Ethyl Alcohol Radiography Chest X-Ray - ED: 1 View, Read by ED Physician, No Acute Disease and Chronic C hanges Diagnostic Testing: Radiology Impression Abdomen/Pelvis CT 01/12/21 22:54 IMPRESSION: Bibasilar airspace disease. Nonobstructing right nephrolithiasis. No acute findings of the abdomen and pelvis. Electronically Signed: Garrett Cisneros DO at 23:46 EDT Tel , Service support , Brain CT 01/12/21 22:54 IMPRESSION: Chronic involutional changes of the brain. Electronically Signed: Garrett Cisneros DO at 23:43 EDT Tel , Service support , Cervical Spine CT 01/12/21 22:54 IMPRESSION: Multilevel degenerative changes, as described above. Postsurgical changes. No acute findings Electronically Signed: Garrett Cisneros DO at 23:44 EDT Tel , Service support , Chest X-Ray 01/12/21 23:13 IMPRESSION: Hypoinflated lungs. Elevated left hemidiaphragm. No acute airspace disease. Electronically Signed: Garrett Cisneros DO at 23:25 EDT Tel , Service support , EKG Initial EKG: Attestation: I personally reviewed and interpreted this EKG as follows: Interpretation: Sinus Rhythm, No Acute Injury Pattern, AV Block (1st deg) and Non-Specific ST Changes (diffuse) Prior EKG tracings: available for review Prior: Changed (lateral T-wave abn are new c/w prior from 07/2019) Discharge Plan Dx/Rx/DC Orders Clinical Impression: Altered mental status, Chest pain, Syncope and collapse, Closed head injury, Alcohol intoxication, JANIE (acute kidney injury), Hypokalemia Disposition Disposition: Acute Care [facility]
[2021-01-12 23:01] VITALS: BMI 27.3
--- NOTE | 2021-01-12 23:02 | ED.RN ---
STROKE ALERT CANCELLED PER ED MD AFTER BEDSIDE EVAL
--- NOTE | 2021-01-12 23:13 | RAD_ITS ---
STUDY: X-RAY CHEST REASON FOR EXAM: Male, 80 years old. chest pain TECHNIQUE: Single AP portable view of the chest. COMPARISON: 07/23/2019 FINDINGS: Lungs are mildly hypoinflated. Elevated left hemidiaphragm. No consolidation or effusion. Stable blunting of the right costophrenic angle. There is borderline cardiomegaly. Normal mediastinum and chas. Normal visualized pulmonary arteries. Normal visualized aortic arch and descending thoracic aorta. Normal visualized thoracic spine. There is degenerative osteoarthritis of the bilateral shoulders. There is no demonstrated abnormality of the visualized soft tissue structures of the upper abdomen. RAD/Chest 1 View (Portable) IMPRESSION: Hypoinflated lungs. Elevated left hemidiaphragm. No acute airspace disease. Electronically Signed: Garrett Cisneros DO at 23:25 EDT Tel , Service support ,
[2021-01-12 23:22] LABS: ALB/GLOB Ratio 0.8 RATIO (0.9-2.4); AST(SGOT) 22 U/L (15-37); Alanine Aminotransfer ALT/SGPT 24 U/L (16-61); Albumin, Serum 3.1 g/dL (3.2-5.0); Alkaline Phosphatase 96 U/L (45-117); Anion Gap 7 (5-15); BUN 11 mg/dL (7-18); BUN/Creat Ratio 7.7 RATIO (10-20); Calcium,Total 8.2 mg/dL (8.5-10.1); Chloride 97 mmol/L (98-107); Creatinine, Serum 1.42 mg/dL (0.70-1.30); EST Glomerular Filtration Rate 51 mL/min (>60); Est Glom Filt Rate - Afr Amer 62 mL/min (>60); Estimated Creatinine Clearance 44.27 ml/min; Globulin 3.9 g/dL (2.2-4.2); Glucose 81 mg/dL (74-106); Lipase 51 U/L (73-393); Potassium 3.1 mmol/L (3.5-5.1); Sodium Level 135 mmol/L (136-145)
[2021-01-12] MEDS: 0.9% Normal Saline 1,000 ML 150 ML IV (23:37)
[2021-01-12 23:39] LABS: Mucous, Urine 0 SEEN /hpf (<or=2+); Red Blood Cells-Urine 0 SEEN /hpf (0-5); Squamous Epithelial Cells - UA 0 SEEN /hpf (0-5); White Blood Cells 0 SEEN /hpf (0-5)
[2021-01-12 23:40] LABS: Absolute Lymphocyte Count 1.52 X10^3/uL (0.83-4.51); Absolute Neutrophil Count 5.8 X10^3/uL (2.0-7.7); Basophil# 0.06 X10^3/uL; Basophil% 0.7 % (0-1); Eosinophil# 0.11 X10^3/uL; Eosinophils% 1.3 % (0-5); Hematocrit 40.2 % (40-54); Hemoglobin 13.8 g/dL (13.0-16.5); Lymphocyte # 1.52 X10^3/ul (0.83-4.51); Lymphocyte % 17.9 % (19-41); Mean Corp Hgb Conc 34.3 g/dL (32-36); Mean Corpuscular Hgb 34.2 pg (27.0-32.0); Mean Corpuscular Volume 99.5 fL (80-94); Mean Platelet Vol. 9.3 fl (6.2-12.0); Monocyte# 0.97 X10^3/uL; Monocyte% 11.4 % (0-10); NRBC Flagged by Analyzer 0 % (0-5); Neutrophil # 5.78 X10^3/uL (2.7-7.7); Neutrophil % 67.9 % (47-70); Platelet Count 289 K/mm3 (150-450); RBC Distribution Width CV 13.2 % (11.6-14.6); RBC Distribution Width SD 48.2 fl (35.1-43.9); Red Blood Count 4.04 M/mm3 (4.6-6.2); White Blood Count 8.5 K/mm3 (4.4-11.0)
[2021-01-12 23:50] VITALS: BP 108/67; PULSE 59; RESP 13; O2SAT 91
[2021-01-12 23:58] LABS: Amphetamine Urine VISTA NEGATIVE (<1000 ng/mL); Barbiturate Urine VISTA NEGATIVE (< 200 ng/mL); Benzodiazepine Urine VISTA NEGATIVE (< 200 ng/mL); Cocaine Urine VISTA NEGATIVE (< 300 ng/mL); Ecstacy Urine VISTA NEGATIVE (< 500 ng/mL); Methadone Urine VISTA NEGATIVE (< 300 ng/mL); PCP Urine VISTA NEGATIVE (< 25 ng/mL); THC Urine VISTA POSITIVE (< 50 ng/mL); Vista UDS pH Range 6
[2021-01-13] VITALS (13 sets, daily range): BP systolic 98–129; BP diastolic 54–75; PULSE 52–82; RESP 14–18; TEMP 36.4–36.9; O2SAT 90–97; BMI 26.3
[2021-01-13 00:11] LABS: Color, Urine Yellow (Yellow); Glucose, Dipstick Normal (Normal); Ketone-Dipstick Negative (Negative); Leukocyte Esterase-Dipstick Negative /ul (Negative); Nitrite-Dipstick Negative (Negative); Occult Blood-Urine Negative /ul (Negative); Protein-Dipstick Negative (Negative); Urine Bilirubin Dipstick Negative (Negative); Urine Clarity Clear (Clear); Urine Urobilinogen Normal (Normal)
--- NOTE | 2021-01-13 00:50 | HP.PCM.HOS_ITS ---
[facility] - General General Date of Admission: 01/13/21 [facility] Narrative FILOMENA JACOBSON, is a 80 M with a significant history of paroxysmal A. fib; hypertension; and congestive heart failure who presents to the emergency department with syncope. His syncope occurred on the same day of presentation. He had four bottles of beer before syncope. He found himself off the floor of education. He reported that before the fall he had substernal chest pain. He reports episodic chest pain that been going on for a while. He reports chronic nausea and vomiting. On the day of presentation he had nausea and vomited. He follows up with GI. Stroke alert was called before patient got to the emergency department. Emergency department doctor reported the patient with slurred speech but no other strokelike symptoms so stroke alert was called off. [facility] Medical History (Updated 01/13/21 @ 02:22 by Wilma Friday) Anxiety and depression Atrial fibrillation CHF (congestive heart failure) COPD (chronic obstructive pulmonary disease) GERD (gastroesophageal reflux disease) Hearing loss, left Hearing loss, right Hyperlipidemia Hypertension Migraines PAF (paroxysmal atrial fibrillation) RLS (restless legs syndrome) TIA (transient ischemic attack) Home Medications aspirin 81 mg PO DAILY 07/23/19 [History Last Taken Unknown] cholecalciferol (vitamin D3) 1,000 unit PO DAILY 07/23/19 [History Last Taken Unknown] citalopram 40 mg PO DAILY 07/23/19 [History Last Taken Unknown] furosemide 40 mg PO DAILY 07/23/19 [History Last Taken Unknown] nitroglycerin 0.4 mg SL X1 PRN 07/23/19 [History Last Taken Unknown] ropinirole 1 mg PO PRN PRN 07/23/19 [History Last Taken Unknown] simvastatin 40 mg PO QHS 07/23/19 [History Last Taken Unknown] apixaban 5 mg PO BID tab 07/26/19 [Rx Last Taken Unknown] Vitamin B-12 5,000 units PO/SL DAILY 01/12/21 [History Last Taken Unknown] amiodarone 200 mg PO DAILY 01/12/21 [History Last Taken Unknown] metoprolol succinate 50 mg PO DAILY 01/12/21 [History Last Taken Unknown] mirtazapine 15 mg PO QHS 01/12/21 [History Last Taken Unknown] pantoprazole 40 mg PO DAILY 01/12/21 [History Last Taken Unknown] sucralfate 1 g PO QHS 01/12/21 [History Last Taken Unknown] Allergy/AdvReac Type Severity Reaction Status Date / Time hydromorphone [From Dilaudid] AdvReac Itching Verified 07/23/19 19:48 Family History Other CVA (cerebral vascular accident) Cirrhosis Surgical History History of back surgery Hx of abdominal surgery Social History Smoking Status: Former smoker alcohol intake: current details: Heavy drinker. Drinks about 4-6 beers per day. Vital Signs Vital Signs Vital Signs: 01/12/21 22:50 01/12/21 22:54 01/12/21 22:58 Temperature 98 F 98 F Temperature Source Temporal Temporal Pulse Rate 61 61 Respiratory Rate 17 17 Respiratory Effort Respiratory Pattern Blood Pressure 117/79 117/79 Blood Pressure Mean 91 91 Pulse Ox 98 95 Oxygen Delivery Method Room Air Room Air Room Air 01/12/21 23:50 Temperature Temperature Source Pulse Rate 59 L Respiratory Rate 13 Respiratory Effort Normal Non-Labored Respiratory Pattern Normal Blood Pressure 108/67 Blood Pressure Mean 80 Pulse Ox 91 Oxygen Delivery Method Room Air Lab / Micro Data Result Diagrams: 01/12/21 22:55 01/12/21 22:55 Labs: Laboratory Results - last 24 hr 01/12/21 01/12/21 01/12/21 22:55 22:55 22:55 WBC 8.5 RBC 4.04 L Hgb 13.8 Hct 40.2 MCV 99.5 H MCH 34.2 H MCHC 34.3 RDW Std Deviation 48.2 H RDW Coeff of Rudy 13.2 Plt Count 289 MPV 9.3 Immature Gran % (Auto) 0.800 Neut % (Auto) 67.9 Lymph % (Auto) 17.9 L [place] % (Auto) 11.4 H Eos % (Auto) 1.3 Baso % (Auto) 0.7 Absolute Neuts (auto) 5.8 Absolute Lymphs (auto) 1.52 Nucleated RBC % 0 Sodium 135 L Potassium 3.1 L Chloride 97 L Carbon Dioxide 31.0 Anion Gap 7 BUN 11 Creatinine 1.42 H Estim Creat Clear Calc 44.27 Est GFR (MDRD) Af Amer 62 Est GFR (MDRD) Non-Af 51 L BUN/Creatinine Ratio 7.7 L Glucose 81 Calcium 8.2 L Total Bilirubin 0.40 AST 22 ALT 24 Alkaline Phosphatase 96 Troponin I < 0.015 Total Protein 7.0 Albumin 3.1 L Globulin 3.9 Albumin/Globulin Ratio 0.8 L Lipase 51 L Urine Color Urine Clarity Urine pH Ur Specific [place] Urine Protein Urine Glucose (UA) Urine Ketones Urine Occult Blood Urine Nitrite Urine Bilirubin Urine Urobilinogen Ur Leukocyte Esterase Urine Opiates Screen Urine Methadone Screen Ur Barbiturates Screen Ur Phencyclidine Scrn Ur Amphetamines Screen U Methamphetamin-MDMA U Benzodiazepines Scrn Urine Cocaine Screen U Cannabinoids Screen Ur Drug Screen Comment Ethyl Alcohol 242.0 01/12/21 01/12/21 23:30 23:30 WBC RBC Hgb Hct MCV MCH MCHC RDW Std Deviation RDW Coeff of Rudy Plt Count MPV Immature Gran % (Auto) Neut % (Auto) Lymph % (Auto) [place] % (Auto) Eos % (Auto) Baso % (Auto) Absolute Neuts (auto) Absolute Lymphs (auto) Nucleated RBC % Sodium Potassium Chloride Carbon Dioxide Anion Gap BUN Creatinine Estim Creat Clear Calc Est GFR (MDRD) Af Amer Est GFR (MDRD) Non-Af BUN/Creatinine Ratio Glucose Calcium Total Bilirubin AST ALT Alkaline Phosphatase Troponin I Total Protein Albumin Globulin Albumin/Globulin Ratio Lipase Urine Color Yellow Urine Clarity Clear Urine pH 6.0 Ur Specific [place] 1.010 Urine Protein Negative Urine Glucose (UA) Normal Urine Ketones Negative Urine Occult Blood Negative Urine Nitrite Negative Urine Bilirubin Negative Urine Urobilinogen Normal Ur Leukocyte Esterase Negative Urine Opiates Screen NEGATIVE Urine Methadone Screen NEGATIVE Ur Barbiturates Screen NEGATIVE Ur Phencyclidine Scrn NEGATIVE Ur Amphetamines Screen NEGATIVE U Methamphetamin-MDMA NEGATIVE U Benzodiazepines Scrn NEGATIVE Urine Cocaine Screen NEGATIVE U Cannabinoids Screen POSITIVE H Ur Drug Screen Comment Ethyl Alcohol Radiology Impression Abdomen/Pelvis CT 01/12/21 22:54 IMPRESSION: Bibasilar airspace disease. Nonobstructing right nephrolithiasis. No acute findings of the abdomen and pelvis. Electronically Signed: Garrett Cisneros DO at 23:46 EDT Tel , Service support , Brain CT 01/12/21 22:54 IMPRESSION: Chronic involutional changes of the brain. Electronically Signed: Garrett Cisneros DO at 23:43 EDT Tel , Service support , Cervical Spine CT 01/12/21 22:54 IMPRESSION: Multilevel degenerative changes, as described above. Postsurgical changes. No acute findings Electronically Signed: Garrett Cisneros DO at 23:44 EDT Tel , Service support , Chest X-Ray 01/12/21 23:13 IMPRESSION: Hypoinflated lungs. Elevated left hemidiaphragm. No acute airspace disease. Electronically Signed: Garrett Cisneros DO at 23:25 EDT Tel , Service support , Assessment & Plan Assessment/Plan (1) Syncope: QUALIFIERS: Syncope type: unspecified Qualified Code(s): R55 - Syncope and collapse (2) Alcoholism: (3) Chest pain: QUALIFIERS: Chest pain type: unspecified Qualified Code(s): R07.9 - Chest pain, unspecified PLAN: Syncope and collapse Cervical spine CT did not show any acute findings Abdomen and pelvis CT with bibasilar airspace disease and cardiomegaly.Previous chest x-ray and current chest x-ray with fibrosis/scarring. EKG independently reviewed. EKG showed sinus bradycardia with first-degree AV block. EKG with nonspecific changes in ST/T wave leads I, aVL, V4 to V6. Previous EKG was reviewed. Current nonspecific T wave/ST abnormality was not present in previous EKG. Echocardiogram on 07/24/2019::Estimated ejection fraction 60%. Stage III diastolic dysfunction. Pulmonary artery systolic pressure of 50 mmHg. Moderate pulmonary hypertension. Mild valvular abnormalities. Mild valvular abno rmalities. Initial troponin was negative. Trend troponin Received normal saline infusion at the emergency department. No further normal saline infusion at this time. Hold Lasix. Orthostatic vitals per protocol Alcohol dependence and desire for detoxification Patient asking for help with alcohol dependence. Discussed with patient about inpatient [facility] program the patient is interested in. Patient will be started in phenobarbital and other adjunctive medications: Gabapentin as needed; dicyclomine as needed; Vistaril as needed; methocarbamol as needed; clonidine as needed; Imodium as needed; trazodone as needed; Zofran as needed; scheduled thiamine; and schedule folic acid. Monitor CIWA score Tobacco abuse Counseled Nicotine patch prescribed. DVT prophylaxis Low risk Encourage to ambulate Chest pain Trend troponin. Eliquis continued. DVT prophylaxis not indicated since patient is on Eliquis Visit Charges Inpatient E&M: 16485 Init Hosp L3
[2021-01-13 00:52] LABS: Bacteria 1+ /hpf (None Seen)
[2021-01-13] MEDS: Potassium Chloride Oral Tablet 20 MEQ 40 MEQ PO (01:08)
[2021-01-13] MEDS: 0.9% Saline Lock 10 ML Syringe IV (02:00)
[2021-01-13] MEDS: Acetaminophen 325 MG Tablet 650 MG PO ×3 (02:02→21:07)
[2021-01-13] MEDS: Phenobarbital 32.4 MG Tablet 97.2 MG PO ×3 (02:03→10:13)
--- NOTE | 2021-01-13 02:40 | NURSING ---
Pt states he received both doses of the COVID vaccine but is unsure which type he received. He believes he got the first around October 21 and the second one in the beginning of October.
[2021-01-13] MEDS: 0.9% Normal Saline 1,000 ML 100 ML IV (04:12)
[2021-01-13 06:47] LABS: Anion Gap 11 (5-15); BUN 9 mg/dL (7-18); BUN/Creat Ratio 7.4 RATIO (10-20); Calcium,Total 7.8 mg/dL (8.5-10.1); Chloride 104 mmol/L (98-107); Creatinine, Serum 1.22 mg/dL (0.70-1.30); EST Glomerular Filtration Rate 61 mL/min (>60); Est Glom Filt Rate - Afr Amer 74 mL/min (>60); Estimated Creatinine Clearance 51.53 ml/min; Glucose 81 mg/dL (74-106); Potassium 3.5 mmol/L (3.5-5.1); Sodium Level 142 mmol/L (136-145)
[2021-01-13] MEDS: Cholecalciferol (VIT D3) 25 MCG TABLET (1,000 UNITS) PO (10:05)
[2021-01-13] MEDS: APIXABAN 5 MG TABLET PO ×2 (10:05→21:07)
[2021-01-13] MEDS: Aspirin 81 MG TAB.CHEW PO (10:05)
[2021-01-13] MEDS: Pantoprazole Sodium 40 MG Tablet PO (10:05)
[2021-01-13] MEDS: Citalopram 40 MG TABLET PO (10:06)
[2021-01-13] MEDS: Thiamine Hydrochloride 100 MG Tablet PO (10:06)
[2021-01-13] MEDS: Folic Acid 1 MG Tablet PO (10:06)
[2021-01-13] MEDS: Amiodarone 200 MG Tablet PO (10:06)
[2021-01-13] MEDS: Metoprolol(XL)Succ 50 MG Tablet PO (10:07)
--- NOTE | 2021-01-13 12:44 | PN.HOSP_ITS ---
Documented by User: Mark LAYTON 01/13/21 12:59 Subjective Subjective Patient is a 80-year-old male who is resting in a chair, alert and oriented x3. Patient reports no development of symptoms since admission to include headache, vision changes, loss of consciousness or syncope. Denies chest pain, shortness of breath, fever, chills, N/V/D. Objective Data Objective Data Vital Signs: Vital Signs Temp Pulse Resp BP Pulse Ox 97.9 F 67 15 98/54 L 94 01/13/21 09:54 01/13/21 12:21 01/13/21 09:54 01/13/21 10:07 01/13/21 09:54 Oxygen Delivery Method Room Air Weight: 183 lb 6.793 oz Body Mass Index (BMI) 26.3 Orthostatic Vital Signs Start: 01/13/21 01:35 Freq: q24h Status: Active Protocol: Activity Type Activity Date Activity User E-Sign Co-Sign Detail Recorded Client Recorded Date Recorded By Document 01/13/21 02:29 EF [id number] 01/13/21 01:51 EF 01/13/21 02:29 Orthostatic Vitals Standing -Blood Pressure (90/60-120/80) 114/59 L -Extremity Use Left Arm -Pulse Rate (60-100) 74 Sitting -Blood Pressure (90/60-120/80) 119/70 -Extremity Use Left Arm -Pulse Rate (60-100) 82 Lying -Blood Pressure (90/60-120/80) 129/73 H -Extremity Use Left Arm -Pulse Rate (60-100) 60 Intake & Output: Intake and Output for Last 24 Hours 01/11/21 01/12/21 01/13/21 23:59 23:59 23:59 Intake Total 620 / 620 Output Total 400 / 400 Balance 220 / 220 Lab / Micro Data Result Diagrams: 01/12/21 22:55 01/13/21 06:08 Labs: Laboratory Results - last 24 hr 01/12/21 01/12/21 01/12/21 22:55 22:55 22:55 WBC 8.5 RBC 4.04 L Hgb 13.8 Hct 40.2 MCV 99.5 H MCH 34.2 H MCHC 34.3 RDW Std Deviation 48.2 H RDW Coeff of Rudy 13.2 Plt Count 289 MPV 9.3 Immature Gran % (Auto) 0.800 Neut % (Auto) 67.9 Lymph % (Auto) 17.9 L [place] % (Auto) 11.4 H Eos % (Auto) 1.3 Baso % (Auto) 0.7 Absolute Neuts (auto) 5.8 Absolute Lymphs (auto) 1.52 Nucleated RBC % 0 Sodium 135 L Potassium 3.1 L Chloride 97 L Carbon Dioxide 31.0 Anion Gap 7 BUN 11 Creatinine 1.42 H Estim Creat Clear Calc 44.27 Est GFR (MDRD) Af Amer 62 Est GFR (MDRD) Non-Af 51 L BUN/Creatinine Ratio 7.7 L Glucose 81 Calcium 8.2 L Total Bilirubin 0.40 AST 22 ALT 24 Alkaline Phosphatase 96 Troponin I < 0.015 Total Protein 7.0 Albumin 3.1 L Globulin 3.9 Albumin/Globulin Ratio 0.8 L Lipase 51 L Urine Color Urine Clarity Urine pH Ur Specific [place] Urine Protein Urine Glucose (UA) Urine Ketones Urine Occult Blood Urine Nitrite Urine Bilirubin Urine Urobilinogen Ur Leukocyte Esterase Urine RBC Urine WBC Ur Squamous Epith Cells Urine Bacteria Urine Mucus Urine Opiates Screen Urine Methadone Screen Ur Barbiturates Screen Ur Phencyclidine Scrn Ur Amphetamines Screen U Methamphetamin-MDMA U Benzodiazepines Scrn Urine Cocaine Screen U Cannabinoids Screen Ur Drug Screen Comment Ethyl Alcohol 242.0 01/12/21 01/12/21 01/13/21 23:30 23:30 03:40 WBC RBC Hgb Hct MCV MCH MCHC RDW Std Deviation RDW Coeff of Rudy Plt Count MPV Immature Gran % (Auto) Neut % (Auto) Lymph % (Auto) [place] % (Auto) Eos % (Auto) Baso % (Auto) Absolute Neuts (auto) Absolute Lymphs (auto) Nucleated RBC % Sodium Potassium Chloride Carbon Dioxide Anion Gap BUN Creatinine Estim Creat Clear Calc Est GFR (MDRD) Af Amer Est GFR (MDRD) Non-Af BUN/Creatinine Ratio Glucose Calcium Total Bilirubin AST ALT Alkaline Phosphatase Troponin I < 0.015 Total Protein Albumin Globulin Albumin/Globulin Ratio Lipase Urine Color Yellow Urine Clarity Clear Urine pH 6.0 Ur Specific [place] 1.010 Urine Protein Negative Urine Glucose (UA) Normal Urine Ketones Negative Urine Occult Blood Negative Urine Nitrite Negative Urine Bilirubin Negative Urine Urobilinogen Normal Ur Leukocyte Esterase Negative Urine RBC 0 SEEN Urine WBC 0 SEEN Ur Squamous Epith Cells 0 SEEN Urine Bacteria 1+ Urine Mucus 0 SEEN Urine Opiates Screen NEGATIVE Urine Methadone Screen NEGATIVE Ur Barbiturates Screen NEGATIVE Ur Phencyclidine Scrn NEGATIVE Ur Amphetamines Screen NEGATIVE U Methamphetamin-MDMA NEGATIVE U Benzodiazepines Scrn NEGATIVE Urine Cocaine Screen NEGATIVE U Cannabinoids Screen POSITIVE H Ur Drug Screen Comment Ethyl Alcohol 01/13/21 01/13/21 06:08 06:08 WBC RBC Hgb Hct MCV MCH MCHC RDW Std Deviation RDW Coeff of Rudy Plt Count MPV Immature Gran % (Auto) Neut % (Auto) Lymph % (Auto) [place] % (Auto) Eos % (Auto) Baso % (Auto) Absolute Neuts (auto) Absolute Lymphs (auto) Nucleated RBC % Sodium 142 Potassium 3.5 Chloride 104 Carbon Dioxide 27.0 Anion Gap 11 BUN 9 Creatinine 1.22 Estim Creat Clear Calc 51.53 Est GFR (MDRD) Af Amer 74 Est GFR (MDRD) Non-Af 61 BUN/Creatinine Ratio 7.4 L Glucose 81 Calcium 7.8 L Total Bilirubin AST ALT Alkaline Phosphatase Troponin I < 0.015 Total Protein Albumin Globulin Albumin/Globulin Ratio Lipase Urine Color Urine Clarity Urine pH Ur Specific [place] Urine Protein Urine Glucose (UA) Urine Ketones Urine Occult Blood Urine Nitrite Urine Bilirubin Urine Urobilinogen Ur Leukocyte Esterase Urine RBC Urine WBC Ur Squamous Epith Cells Urine Bacteria Urine Mucus Urine Opiates Screen Urine Methadone Screen Ur Barbiturates Screen Ur Phencyclidine Scrn Ur Amphetamines Screen U Methamphetamin-MDMA U Benzodiazepines Scrn Urine Cocaine Screen U Cannabinoids Screen Ur Drug Screen Comment Ethyl Alcohol Radiography Diagnostic Testing: Radiology Impression Abdomen/Pelvis CT 01/12/21 22:54 IMPRESSION: Bibasilar airspace disease. Nonobstructing right nephrolithiasis. No acute findings of the abdomen and pelvis. Electronically Signed: Garrett Cisneros DO at 23:46 EDT Tel , Service support , Brain CT 01/12/21 22:54 IMPRESSION: Chronic involutional changes of the brain. Electronically Signed: Garrett Cisneros DO at 23:43 EDT Tel , Service support , Cervical Spine CT 01/12/21 22:54 IMPRESSION: Multilevel degenerative changes, as described above. Postsurgical changes. No acute findings Electronically Signed: Garrett Cisneros DO at 23:44 EDT Tel , Service support , Chest X-Ray 01/12/21 23:13 IMPRESSION: Hypoinflated lungs. Elevated left hemidiaphragm. No acute airspace disease. Electronically Signed: Garrett Cisneros DO at 23:25 EDT Tel , Service support , Physical Exam Narrative See subjective. Const alert, oriented x3 and no apparent distress HEENT head/scalp atraumatic and moist oral mucous membranes Head and Scalp: normocephalic Eyes PERRL, EOMs intact bilaterally and conjunctivae normal Neck no lymphadenopathy, supple and no JVD Resp normal respiratory effort, no retractions, no use of accessory muscles and clear to auscultation bilaterally Cardio regular rate, regular rhythm, no murmurs and no JVD GI normal to inspection, nondistended, normoactive bowel sounds, soft to palpation, non-tender and non-distended Extremity normal to inspection, full ROM and no clubbing, cyanosis or edema Skin no rashes or lesions noted, no wounds and skin turgor normal Neuro CN's II-XII intact bilaterally Psych affect normal Assessment & Plan Assessment/Plan (1) Syncope: QUALIFIERS: Syncope type: unspecified Qualified Code(s): R55 - Syncope and collapse (2) Alcoholism: PLAN: 1) Syncope/Chest pain Possibly related to his acute alcohol intoxication. Cervical spine CT did not show any acute findings, and only showed bibasilar airspace disease and cardiomegaly. Chest x-ray unremarkable. EKG obtained in the ED only demonstrated sinus bradycardia with first-degree AV block and nonspecific ST/T wave changes in 1, aVL, V4 to V6. Echocardiogram from 07/24/2019: est EF of 65%, stage III diastolic dysfunction, pulmonary artery systolic pressure of 50 mmHg, and moderate pulmonary HTN. Troponins not elevated throughout cycle. Plan; hold home Lasix, orthostatic vitals, continue amiodarone, continue Toprol, continue aspirin, continue statin. 2) Alcohol dependence and desire for detoxification Patient asking for help with alcohol dependence. Patient endorses drinking 4-6 beers nightly. Ethyl alcohol 242. Denies any other drug use, to include prescribed or illicit. Urine tox screen positive for cannabinoids only. Plan; phenobarb taper initiated, gabapentin as needed, dicyclomine as needed, Vistaril as needed, methocarbamol as needed, clonidine as needed, Imodium as needed, trazodone as needed, Zofran as needed. Thiamine and folic acid ordered. Patient interested in ramp program. 3) Tobacco abuse Continue nicotine patch. DVT prophylaxis -continue home Eliquis Patient seen by Mark Elena PA-C, under the supervision of Dr. Wolfe. Documented by User: Dr. Feng Wolfe, 01/13/21 14:29 Subjective Subjective Patient states that his right knee gave out any fell. Does not recall the actual fall other than initiating. Patient is unsure if he hit his head but his neck is sore since then. Patient drinks around 4-6 beers per day but does go days without drinking without any ill effects. Objective Data Lab / Micro Data Result Diagrams: 01/12/21 22:55 01/13/21 06:08 Physical Exam Const alert and oriented x3 HEENT head/scalp atraumatic Head and Scalp: normocephalic Eyes PERRL Resp normal respiratory effort and clear to auscultation bilaterally Cardio regular rate, regular rhythm, S1 normal heart sound and S2 normal heart sound GI normal to inspection, nondistended, normoactive bowel sounds, non-tender and non-distended Assessment & Plan Assessment/Plan (1) Near syncope: PLAN: Patient seen and examined independently. Data reviewed. I agree with the above note by the physician dermatology physician assistant. 1. Syncope * Patient recalls his right leg giving out and then he fell and likely hitting his head may be suffering a concussion. Patient is otherwise feeling fine at this time. * No additional work-up at this time 2. Chest pain * Atypical * Troponins negative * No additional work-up at this time 3. Alcohol abuse * Patient drinks 4-6 beers per day * He states that he goes days without drinking with no ill effects * I feel the patient is a very low risk for going through alcohol withdrawal * He does endorse that he wishes to quit alcohol and states he only drinks 2 occupy his time as he gets bored while working on his computer * Recommend further outpatient follow-up * Discontinue the ramp program 4. Debility * Seen by PT recommends additional therapy * PT recommending SNF Visit Charges Inpatient E&M: 16878 Subs Hosp L2
--- NOTE | 2021-01-13 16:28 | CASEMGMT ---
Addendum entered by Marilee Soni 01/13/21 16:31: completed by Marilee SEYMOUR Original Note: SW Note: Referral Source: [facility] Referral Reason : Patient wants information about RAMP SW met with patient's MD, outside patient's room. MD stated that patient drank 4 beers a day and is not going through alcohol detoxification. MD stated that patient needs correction facility (SNF) at discharge.
--- NOTE | 2021-01-13 17:47 | CM.ED ---
SW Note: Referral Source: MD Referral Reason: MD said that patient does not need alcohol detox but [facility] (SNF) SW met with patient in his room. Patient was sitting in his chair. PCP: Dr. Machado in [place] Specialist:Patient reports he doesn't think he has any. Preferred Pharmacy: [facility] [place] Prescription: Part D [facility] Living Will and HCPOA: Patient said he has advanced directives. He is unsure if the advanced directives are on file at [facility]. 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 LNOK: , Michelle Living Arrangements: One story home, No steps inside. Patient said that there are steps in the basement and he goes to the basement once and awhile Prior Level of functioning: Patient said that he was independent with his ADL's. He reports his cooks. DME: Patient has walker and cane HHC/SNF: Patient reports no history of SNF or HHC. Patient initially said I am not going to SNF and I don't need fci. SW spent extensive time speaking about patient getting physical rehab to assist with strengthening. Assessment: SW will continue to monitor for discharge needs Plan: To be developed Marilee SEYMOUR
[2021-01-13] MEDS: Mirtazapine 15 MG Tablet PO (21:06)
[2021-01-13] MEDS: Atorvastatin Calcium 20 MG Tablet PO (21:06)
[2021-01-13] MEDS: Sucralfate 1 GM Tablet PO (21:06)
[2021-01-13] MEDS: traZODone 100 MG Tablet PO (23:58)
[2021-01-14] VITALS (12 sets, daily range): BP systolic 107–136; BP diastolic 62–79; PULSE 60–74; RESP 17–20; TEMP 36.8–37.4; O2SAT 91–94
[2021-01-14] MEDS: Acetaminophen 325 MG Tablet 650 MG PO (04:57)
[2021-01-14 06:07] LABS: Absolute Lymphocyte Count 0.85 X10^3/uL (0.83-4.51); Absolute Neutrophil Count 8.2 X10^3/uL (2.0-7.7); Basophil# 0.04 X10^3/uL; Basophil% 0.4 % (0-1); Eosinophil# 0.11 X10^3/uL; Hematocrit 37.5 % (40-54); Hemoglobin 12.2 g/dL (13.0-16.5); Lymphocyte # 0.85 X10^3/ul (0.83-4.51); Lymphocyte % 7.9 % (19-41); Mean Corp Hgb Conc 32.5 g/dL (32-36); Mean Corpuscular Hgb 33.2 pg (27.0-32.0); Mean Corpuscular Volume 101.9 fL (80-94); Mean Platelet Vol. 9.8 fl (6.2-12.0); Monocyte# 1.58 X10^3/uL; Monocyte% 14.6 % (0-10); NRBC Flagged by Analyzer 0 % (0-5); Neutrophil # 8.18 X10^3/uL (2.7-7.7); Neutrophil % 75.7 % (47-70); POSITIVE DIFFERENTIAL YES; Platelet Count 236 K/mm3 (150-450); RBC Distribution Width CV 13.7 % (11.6-14.6); RBC Distribution Width SD 52.1 fl (35.1-43.9); Red Blood Count 3.68 M/mm3 (4.6-6.2); White Blood Count 10.8 K/mm3 (4.4-11.0)
[2021-01-14 06:13] LABS: Differential Indicated SCAN CRITERIA MET
[2021-01-14 06:28] LABS: Anion Gap 6 (5-15); BUN 18 mg/dL (7-18); BUN/Creat Ratio 12.9 RATIO (10-20); Calcium,Total 8.4 mg/dL (8.5-10.1); Chloride 107 mmol/L (98-107); Creatinine, Serum 1.39 mg/dL (0.70-1.30); EST Glomerular Filtration Rate 53 mL/min (>60); Est Glom Filt Rate - Afr Amer 64 mL/min (>60); Estimated Creatinine Clearance 45.22 ml/min; Glucose 131 mg/dL (74-106); Potassium 3.4 mmol/L (3.5-5.1); Sodium Level 140 mmol/L (136-145)
[2021-01-14] MEDS: 0.9% Saline Lock 10 ML Syringe IV (09:09)
--- NOTE | 2021-01-14 09:28 | RAD_ITS ---
STUDY: X-RAY - LEFT KNEE REASON FOR EXAM: Male, 80 years old. left knee pain TECHNIQUE: 2 view(s) of the knee. COMPARISON: None. FINDINGS: Normal visualized distal femur. Normal visualized proximal tibia and fibula. Normal proximal tibiofibular articulation. Normal medial femorotibial compartment. Normal lateral femorotibial compartment. Normal patellofemoral articulation. There is a large volume joint effusion. The soft tissue structures are unremarkable. RAD/Knee 1 or 2 Views IMPRESSION: Effusion, as described above. MRI may be useful. Electronically Signed: Mert Carlin MD at 10:16 EDT Tel , Service support ,
--- NOTE | 2021-01-14 09:28 | RAD_ITS ---
STUDY: X-RAY - PELVIS AND LEFT HIP REASON FOR EXAM: Male, 80 years old. left hip pain TECHNIQUE: 3 views of the pelvis and hip. COMPARISON: None. FINDINGS: There is a non-specific bowel gas pattern. Normal visualized soft tissue structures. Normal bilateral iliac wings, sacroiliac joints and visualized sacrum. Normal bilateral superior and inferior pubic rami. Normal pubic symphysis. Normal bilateral ischial tuberosities. Normal visualized femoral head. Normal acetabulum. Normal hip joint. RAD/Hip Min 2 Views (Portable) IMPRESSION: Normal x-ray examination of the pelvis and hip. Electronically Signed: Mert Carlin MD at 10:17 EDT Tel , Service support ,
[2021-01-14] MEDS: oxyCODONE 5 MG Tablet 10 MG PO ×3 (10:11→19:46)
[2021-01-14] MEDS: Pantoprazole Sodium 40 MG Tablet PO (10:13)
[2021-01-14] MEDS: Amiodarone 200 MG Tablet PO (10:13)
[2021-01-14] MEDS: Cholecalciferol (VIT D3) 25 MCG TABLET (1,000 UNITS) PO (10:13)
[2021-01-14] MEDS: Metoprolol(XL)Succ 50 MG Tablet PO (10:13)
[2021-01-14] MEDS: Aspirin 81 MG TAB.CHEW PO (10:13)
[2021-01-14] MEDS: Citalopram 40 MG TABLET PO (10:14)
[2021-01-14] MEDS: Folic Acid 1 MG Tablet PO (10:14)
[2021-01-14] MEDS: APIXABAN 5 MG TABLET PO ×2 (10:14→21:00)
[2021-01-14] MEDS: Thiamine Hydrochloride 100 MG Tablet PO (10:15)
--- NOTE | 2021-01-14 11:31 | PN.HOSP_ITS ---
Documented by User: Mark LAYTON 01/14/21 11:45 Subjective Subjective Patient is a 80-year-old male lying in bed, alert and oriented x3. Patient and nursing staff report that patient is experiencing excruciating knee pain which he rates at about a 9 out of 10, patient requesting pain medications to deal with pain. Denies any other complaints to include chest pain, shortness of breath, palpitations, fever, chills, N/V/D. Objective Data Objective Data Vital Signs: Vital Signs Temp Pulse Resp BP Pulse Ox 98.4 F 68 20 H 130/62 H 93 01/14/21 10:06 01/14/21 10:13 01/14/21 10:06 01/14/21 10:06 01/14/21 10:06 Oxygen Delivery Method Room Air Weight: 183 lb 6.793 oz Body Mass Index (BMI) 26.3 Orthostatic Vital Signs Start: 01/13/21 01:35 Freq: 0600 Status: Active Protocol: Activity Type Activity Date Activity User E-Sign Co-Sign Detail Recorded Client Recorded Date Recorded By Document 01/14/21 05:01 [id number] 01/14/21 05:05 01/14/21 05:01 Orthostatic Vitals Standing -Blood Pressure (90/60-120/80) 134/79 H -Extremity Use Left Arm -Pulse Rate (60-100) 74 Sitting -Blood Pressure (90/60-120/80) 125/70 H -Extremity Use Left Arm -Pulse Rate (60-100) 65 Lying -Blood Pressure (90/60-120/80) 120/73 -Extremity Use Left Arm -Pulse Rate (60-100) 67 Intake & Output: Intake and Output for Last 24 Hours 01/12/21 01/13/21 01/14/21 23:59 23:59 23:59 Intake Total 2770 / 2770 140 / 140 Output Total 950 / 950 Balance 1820 / 1820 140 / 140 Lab / Micro Data Result Diagrams: 01/14/21 05:34 01/14/21 05:34 Labs: Laboratory Results - last 24 hr 01/14/21 01/14/21 05:34 05:34 WBC 10.8 RBC 3.68 L Hgb 12.2 L Hct 37.5 L MCV 101.9 H MCH 33.2 H MCHC 32.5 D RDW Std Deviation 52.1 H RDW Coeff of Rudy 13.7 Plt Count 236 MPV 9.8 Immature Gran % (Auto) 0.400 Neut % (Auto) 75.7 H Lymph % (Auto) 7.9 L [place] % (Auto) 14.6 H Eos % (Auto) 1.0 Baso % (Auto) 0.4 Absolute Neuts (auto) 8.2 H Absolute Lymphs (auto) 0.85 Nucleated RBC % 0 Sodium 140 Potassium 3.4 L Chloride 107 Carbon Dioxide 27.0 Anion Gap 6 BUN 18 Creatinine 1.39 H Estim Creat Clear Calc 45.22 Est GFR (MDRD) Af Amer 64 Est GFR (MDRD) Non-Af 53 L BUN/Creatinine Ratio 12.9 Glucose 131 H Calcium 8.4 L Radiography Diagnostic Testing: Radiology Impression Hip X-Ray 01/14/21 09:28 IMPRESSION: Normal x-ray examination of the pelvis and hip. Electronically Signed: Mert Carlin MD at 10:17 EDT Tel , Service support , Knee X-Ray 01/14/21 09:28 IMPRESSION: Effusion, as described above. MRI may be useful. Electronically Signed: Mert Carlin MD at 10:16 EDT Tel , Service support , Physical Exam Narrative See subjective. Const alert, oriented x3 and no apparent distress HEENT head/scalp atraumatic Head and Scalp: normocephalic Eyes PERRL, EOMs intact bilaterally and conjunctivae normal Neck no lymphadenopathy, supple and no JVD Resp normal respiratory effort, no retractions, no use of accessory muscles and clear to auscultation bilaterally Cardio regular rate, regular rhythm, no murmurs and no JVD GI normal to inspection, nondistended, normoactive bowel sounds, soft to palpation, non-tender and non-distended Extremity Extremity Narrative: Patient reports bilateral knee pain. Effusion noted about the left knee only, right knee appears to be normal size. 2+ strength observed about the lower extremities bilaterally. Skin no rashes or lesions noted and no wounds Skin Narrative: See subjective for knee effusion Neuro CN's II-XII intact bilaterally Psych affect normal Assessment & Plan Assessment/Plan (1) Syncope and collapse: (2) Former tobacco use: (3) Debility: (4) Chest pain: QUALIFIERS: Chest pain type: unspecified Qualified Code(s): R07.9 - Chest pain, unspecified (5) JANIE (acute kidney injury): (6) Alcoholism: PLAN: 1) Syncope/Chest pain Possibly related to his acute alcohol intoxication. Cervical spine CT did not show any acute findings, and only showed bibasilar airspace disease and cardiomegaly. Chest x-ray unremarkable. EKG obtained in the ED only demonstrated sinus bradycardia with first-degree AV block and nonspecific ST/T wave changes in 1, aVL, V4 to V6. Echocardiogram from 07/24/2019: est EF of 65%, stage III diastolic dysfunction, pulmonary artery systolic pressure of 50 mmHg, and moderate pulmonary HTN. Troponins not elevated throughout cycle. Plan; hold home Lasix, orthostatic vitals, continue amiodarone, continue Toprol, continue aspirin, continue statin. 2) Alcohol dependence and desire for detoxification Patient endorses drinking 4-6 beers intermittently, believe patient is a low risk for acute alcohol withdrawal. Ethyl alcohol 242. Denies any other drug use, to include prescribed or illicit. Urine tox screen positive for cannabinoids only. Plan; phenobarb taper initiated, gabapentin as needed, dicyclomine as needed, Vistaril as needed, methocarbamol as needed, clonidine as needed, Imodium as needed, trazodone as needed, Zofran as needed. Thiamine and folic acid ordered, patient to seek outpatient follow-up, ramp program discontinued. 3) Tobacco abuse Continue nicotine patch. 4) Debililty Patient suffered a fall prior to admission. Patient reports 9 out of 10 unilateral knee pain and demonstrates 2+ weakness about the lower extremities bilaterally. Effusion evident on physical exam. X-ray of the left knee only demonstrated effusion. PT/OT eval recommends SNF placement upon discharge. Patient now agreeable to SNF placement. Plan; discharge to SNF pending case management evaluation, Oxyir PRN for pain. 5) JANIE Creatinine currently 1.39. Plan; fluids ordered, monitor BMP. DVT prophylaxis - continue home Eliquis Patient seen by Mark Elena PA-C, under the supervision of Dr. Wolfe. Documented by User: Dr. Feng Wolfe, 01/14/21 13:51 Subjective Subjective Complaining of severe left leg pain. Pain in hip and knee. Was able to walk on it yesterday, but it started feeling worse last night and into today. Objective Data Lab / Micro Data Result Diagrams: 01/14/21 05:34 01/14/21 05:34 Physical Exam Const alert Resp normal respiratory effort and clear to auscultation bilaterally Cardio regular rate, regular rhythm, S1 normal heart sound and S2 normal heart sound GI normal to inspection, nondistended, normoactive bowel sounds and non-distended Extremity Extremity Narrative: posterior swelling of left knee. Neuro Sensorium / Orientation: awake and alert Assessment & Plan Assessment/Plan (1) Debility: PLAN: Patient seen and examined independently. Data reviewed. I agree with the above note by the physician assistant laboratory director. 1. Syncope Patient recalls his right leg giving out and then he fell and likely hitting his head may be suffering a concussion. Patient is otherwise feeling fine at this time. No additional work-up at this time 2. Chest pain Atypical Troponins negative No additional work-up at this time 3. Alcohol abuse Patient drinks 4-6 beers per day He states that he goes days without drinking with no ill effects I feel the patient is a very low risk for going through alcohol withdrawal He does endorse that he wishes to quit alcohol and states he only drinks 2 occupy his time as he gets bored while working on his computer Recommend further outpatient follow-up Discontinue the ramp program 4. Debility Seen by PT recommends additional therapy PT recommending SNF 5. Left knee pain * xray report effusion * not suggestive of septic arthritis * supportive mgmt at this time * consider orthopaedics eval if worse. Visit Charges Inpatient E&M: 78015 Subs Hosp L2
[2021-01-14] MEDS: Mirtazapine 15 MG Tablet PO (20:59)
[2021-01-14] MEDS: Sucralfate 1 GM Tablet PO (20:59)
[2021-01-14] MEDS: Atorvastatin Calcium 20 MG Tablet PO (21:00)
[2021-01-14] MEDS: guaiFENesin 10 ML UDC (200MG/10ML) PO (22:57)
[2021-01-15] VITALS (12 sets, daily range): BP systolic 114–126; BP diastolic 44–74; PULSE 62–71; RESP 17–18; TEMP 36.9–37.2; O2SAT 88–96
[2021-01-15] MEDS: oxyCODONE 5 MG Tablet 10 MG PO ×4 (02:58→20:40)
[2021-01-15] MEDS: guaiFENesin 10 ML UDC (200MG/10ML) PO ×2 (03:00→22:57)
[2021-01-15 06:16] LABS: Absolute Lymphocyte Count 1.21 X10^3/uL (0.83-4.51); Absolute Neutrophil Count 10.1 X10^3/uL (2.0-7.7); Basophil# 0.04 X10^3/uL; Basophil% 0.3 % (0-1); Eosinophil# 0.06 X10^3/uL; Eosinophils% 0.4 % (0-5); Hematocrit 40.4 % (40-54); Hemoglobin 12.8 g/dL (13.0-16.5); Lymphocyte # 1.21 X10^3/ul (0.83-4.51); Mean Corp Hgb Conc 31.7 g/dL (32-36); Mean Corpuscular Hgb 33.4 pg (27.0-32.0); Mean Corpuscular Volume 105.5 fL (80-94); Mean Platelet Vol. 9.5 fl (6.2-12.0); Monocyte# 1.99 X10^3/uL; Monocyte% 14.8 % (0-10); NRBC Flagged by Analyzer 0 % (0-5); Neutrophil # 10.07 X10^3/uL (2.7-7.7); Neutrophil % 75.1 % (47-70); POSITIVE DIFFERENTIAL YES; Platelet Count 234 K/mm3 (150-450); RBC Distribution Width CV 13.9 % (11.6-14.6); RBC Distribution Width SD 54.2 fl (35.1-43.9); Red Blood Count 3.83 M/mm3 (4.6-6.2); White Blood Count 13.4 K/mm3 (4.4-11.0)
[2021-01-15 06:19] LABS: Differential Indicated SCAN CRITERIA MET
[2021-01-15 06:40] LABS: Anion Gap 5 (5-15); BUN 19 mg/dL (7-18); BUN/Creat Ratio 13.8 RATIO (10-20); Calcium,Total 8.9 mg/dL (8.5-10.1); Chloride 105 mmol/L (98-107); Creatinine, Serum 1.38 mg/dL (0.70-1.30); EST Glomerular Filtration Rate 53 mL/min (>60); Est Glom Filt Rate - Afr Amer 64 mL/min (>60); Estimated Creatinine Clearance 45.55 ml/min; Glucose 117 mg/dL (74-106); Sodium Level 137 mmol/L (136-145)
[2021-01-15 06:49] LABS: Anisocytosis 1+; Differential Comment SCANNED; Macrocytosis 1+
[2021-01-15] MEDS: Thiamine Hydrochloride 100 MG Tablet PO (07:59)
[2021-01-15] MEDS: Aspirin 81 MG TAB.CHEW PO (07:59)
[2021-01-15] MEDS: Amiodarone 200 MG Tablet PO (07:59)
[2021-01-15] MEDS: Folic Acid 1 MG Tablet PO (07:59)
[2021-01-15] MEDS: Cholecalciferol (VIT D3) 25 MCG TABLET (1,000 UNITS) PO (08:52)
[2021-01-15] MEDS: APIXABAN 5 MG TABLET PO ×2 (08:52→21:53)
[2021-01-15] MEDS: Metoprolol(XL)Succ 50 MG Tablet PO (08:52)
[2021-01-15] MEDS: Citalopram 40 MG TABLET PO (08:52)
[2021-01-15] MEDS: Pantoprazole Sodium 40 MG Tablet PO (08:52)
--- NOTE | 2021-01-15 09:55 | CASEMGMT ---
SW spoke with patient and confirmed he needs to go to a correction facility for rehab. SW provided patient with a list of SNF providers including quality and resource use data and consistent with the patient?s preferred geographic region, medical needs, and insurance network. He asked about [facility]. SW told him SW will work on making referral. SW told him SW will get back to him as soon as SW hears a response. Karina Miller LEARNING TECHNOLOGIES SPECIALIST [place]
--- NOTE | 2021-01-15 10:07 | CASEMGMT ---
Addendum entered by Enriqueta Todd 01/15/21 11:48: SW spoke w/Leila from [facility], they can take pt tomorrow. SW let physician know. SW also let pt know, he is in agreement with this. Plan: [facility] 01/16/21 Original Note: Referral faxed to [facility], SW called Leila at [facility] to let her know referral is being faxed and to call SW once it's reviewed, let SW know if they can take pt. ADRIENNE Hendrickson
--- NOTE | 2021-01-15 10:21 | CT_ITS ---
STUDY: CT HEAD STROKE PROTOCOL W/O CONTRAST INJECTION REASON FOR EXAM: Male, 80 years old. Slurred speech RADIATION DOSAGE (If Supplied By Facility): CTDIvol = ( ) mGy, DLP = ( ) mGycm TECHNIQUE: Transaxial CT imaging of the brain was performed without administration of intravenous contrast material. Individualized dose optimization techniques were used for this CT. COMPARISON: 01/12/2021 FINDINGS: Normal soft tissue structures. Normal calvarium. There is mild cerebral atrophy with widening of the extra-axial spaces and ventricular dilatation. There are areas of decreased attenuation within the white matter tracts of the supratentorial brain, consistent with microvascular disease changes. Normal basal ganglia and thalami. Normal brainstem. Normal cerebellum. There is no intracranial hemorrhage. There are no findings of an acute ischemic infarction. Normal visualized paranasal sinuses. ASPECT score: 10 CT/STROKE Brain/Head without Cont IMPRESSION: Chronic involutional changes of the brain. No acute hemorrhage or significant interval change N.B. : The above information has been verbally conveyed by Bala Moreno MD to DARA Daniels, on 01/15/2021 10:54:21 (ET). Electronically Signed: Bala Moreno MD at 10:55 EDT , Service support ,
[2021-01-15] MEDS: DiphenhydrAMINE 25 MG Capsule PO ×2 (10:51→20:40)
[2021-01-15] MEDS: oxyCODONE 5 MG Tablet PO (11:19)
--- NOTE | 2021-01-15 12:23 | PCM.PN.HOSP ---
Documented by User: Mark LAYTON 01/15/21 12:35 Subjective Subjective Patient is a 80-year-old male comfortably resting in bed, alert and oriented x3. Patient reports that his swelling of the left knee has decreased however now he feels like his right knee is beginning to develop an effusion. Denies any other symptoms to include chest pain, shortness of breath, palpitations, fever, chills, N/V/D. Objective Data Objective Data Vital Signs: Vital Signs Temp Pulse Resp BP Pulse Ox 98.4 F 71 18 114/44 L 94 01/15/21 08:50 01/15/21 08:52 01/15/21 08:50 01/15/21 08:52 01/15/21 08:50 Oxygen Flow Rate (L/min) 2 Oxygen Delivery Method Nasal Cannula Weight: 183 lb 6.793 oz Body Mass Index (BMI) 26.3 Intake & Output: Intake and Output for Last 24 Hours 01/13/21 01/14/21 01/15/21 23:59 23:59 23:59 Intake Total 2770 / 2770 840 / 840 220 / 220 Output Total 950 / 950 250 / 250 200 / 200 Balance 1820 / 1820 590 / 590 20 / 20 Lab / Micro Data Result Diagrams: 01/16/21 05:38 01/16/21 05:38 Labs: Laboratory Results - last 24 hr 01/15/21 01/15/21 06:04 06:04 WBC 13.4 H RBC 3.83 L Hgb 12.8 L Hct 40.4 MCV 105.5 H MCH 33.4 H MCHC 31.7 L RDW Std Deviation 54.2 H RDW Coeff of Rudy 13.9 Plt Count 234 MPV 9.5 Immature Gran % (Auto) 0.400 Neut % (Auto) 75.1 H Lymph % (Auto) 9.0 L [place] % (Auto) 14.8 H Eos % (Auto) 0.4 Baso % (Auto) 0.3 Absolute Neuts (auto) 10.1 H Absolute Lymphs (auto) 1.21 Nucleated RBC % 0 Differential Comment SCANNED Diff Path Review May foll Anisocytosis 1+ Macrocytosis 1+ Sodium 137 Potassium 4.0 Chloride 105 Carbon Dioxide 27.0 Anion Gap 5 BUN 19 H Creatinine 1.38 H Estim Creat Clear Calc 45.55 Est GFR (MDRD) Af Amer 64 Est GFR (MDRD) Non-Af 53 L BUN/Creatinine Ratio 13.8 Glucose 117 H Calcium 8.9 Radiography Diagnostic Testing: Radiology Impression Brain CT 01/15/21 10:21 IMPRESSION: Chronic involutional changes of the brain. No acute hemorrhage or significant interval change N.B. : The above information has been verbally conveyed by Bala Moreno MD to DARA Daniels, on 01/15/2021 10:54:21 (ET). Electronically Signed: Bala Moreno MD at 10:55 EDT , Service support , ADDENDUM: 01/15/21 1102 IMPRESSION: Chronic involutional changes of the brain. No acute hemorrhage or significant interval change N.B. : The above information has been verbally conveyed by Bala Moreno MD to DARA Daniels, on 01/15/2021 10:54:21 (ET). Electronically Signed: Bala Moreno MD at 10:55 EDT , Service support , Physical Exam Narrative See subjective. Const alert, oriented x3 and no apparent distress HEENT head/scalp atraumatic and moist oral mucous membranes Head and Scalp: normocephalic Eyes PERRL, EOMs intact bilaterally and conjunctivae normal Neck no lymphadenopathy, supple and no JVD Resp normal respiratory effort, no retractions, no use of accessory muscles and clear to auscultation bilaterally Cardio regular rate, regular rhythm, no murmurs and no JVD GI normal to inspection, nondistended, normoactive bowel sounds, soft to palpation, non-tender and non-distended Extremity Extremity Narrative: Decreased swelling about the left knee compared to yesterday. Right knee unremarkale, despite patient complaints. Skin no rashes or lesions noted, no wounds and skin turgor normal Neuro CN's II-XII intact bilaterally Psych affect normal Assessment & Plan Assessment/Plan (1) Syncope and collapse: (2) Former tobacco use: (3) Debility: (4) Chest pain: QUALIFIERS: Chest pain type: unspecified Qualified Code(s): R07.9 - Chest pain, unspecified (5) JANIE (acute kidney injury): (6) Alcoholism: PLAN: Patient is a 80-year-old male who was admitted to [facility] on 01/13/2021 for syncope secondary to alcohol intoxication and fall. Today patient reports of improved swelling in regards to the left knee, however now reports swelling about the right knee. On my exam knees appeared about the same size, however were both tender to palpation. Patient has been approved to go to [facility] for shelter care on 01/16/2021. Anticipate discharge tomorrow. 1) Syncope/Chest pain Possibly related to his acute alcohol intoxication. Cervical spine CT did not show any acute findings, and only showed bibasilar airspace disease and cardiomegaly. Chest x-ray unremarkable. EKG obtained in the ED only demonstrated sinus bradycardia with first-degree AV block and nonspecific ST/T wave changes in 1, aVL, V4 to V6. Echocardiogram from 07/24/2019: est EF of 65%, stage III diastolic dysfunction, pulmonary artery systolic pressure of 50 mmHg, and moderate pulmonary HTN. Troponins not elevated throughout cycle. Plan; hold home Lasix, orthostatic vitals, continue amiodarone, continue Toprol, continue aspirin, continue statin. 2) Alcohol dependence and desire for detoxification Patient endorses drinking 4-6 beers intermittently, believe patient is a low risk for acute alcohol withdrawal. Ethyl alcohol 242. Denies any other drug use, to include prescribed or illicit. Urine tox screen positive for cannabinoids only. Plan; phenobarb taper initiated, gabapentin as needed, dicyclomine as needed, Vistaril as needed, methocarbamol as needed, clonidine as needed, Imodium as needed, trazodone as needed, Zofran as needed. Thiamine and folic acid ordered, patient to seek outpatient follow-up, ramp program discontinued. 3) Tobacco abuse Continue nicotine patch. 4) Debililty Patient reports that left knee swelling has improved from yesterday, but now complains of swelling about the right knee. Knees appeared about the same size during physical exam, left knee does appear improved from yesterday. Knee is tender to palpation bilaterally. Believe the effusion and ongoing knee pain is secondary to fall prior to admission. Effusion evident on physical exam. X-ray of the left knee only demonstrated effusion. PT/OT eval recommends SNF placement upon discharge. Patient now agreeable to SNF placement. Plan; patient approved for placement at [facility] on 01/16/2021, Oxyir PRN for pain. 5) JANIE Creatinine currently 1.38. Plan; fluids ordered, monitor BMP. DVT prophylaxis - continue home Aleena Patient seen by Mark Elena PA-C, under the supervision of Dr. Katz. Documented by User: Dr. Sukhi Katz MD 01/16/21 16:22 Subjective Subjective Patient complain of bilateral knee pain. Does not have shortness of breath. Patient stated he fell down on his knees but swelling is getting better, right more than left. Orthopedic surgeon consult requested. Objective Data Lab / Micro Data Result Diagrams: 01/16/21 05:38 01/16/21 05:38 Physical Exam Narrative General: Alert, Oriented x3, Cooperative HEENT: Atraumatic, PERRLA, EOMI, Normocephalic Oral: No Gingival or Mucosal Lesions/ Ulcerations Neck: Supple, No JVD, Negative Carotid Bruits Lungs: Air entry diminished in bilateral lung bases. No crepitation/rhonchi Cardiovascular: Regular rate, Regular Rhythm, Normal S1, Normal S2, No murmurs Abdomen: Bowel Sounds Present, Soft, Non Tender, Non-Distended : No renal angle tenderness. No suprapubic tenderness. Extremities: Mild bilateral ankle edema, Capillary Refill Less than 3 Seconds Skin: No rashes, No breakdown Musculoskeletal: Bilateral knee tender, right more than left with swelling. Tenderness on both knees. Neurological: Cranial nerves II-XII grossly intact, Deep Tendon Reflexes 2+/4 and Symmetrical, Neuro grossly intact Psych/Mental Status: Normal Affect, Appropriate. Assessment & Plan Assessment/Plan (1) Near syncope: (2) Alcohol intoxication: PLAN: This patient was seen in conjunction with CALIN Gregory. I have independently interviewed and examined the patient and reviewed pertinent history, examination findings, laboratory and plan of management. I have reviewed the note and agree with the documented findings with the few additional points. In brief, patient is admitted for syncope after alcohol intoxication and fall. Patient also had chest pain which was negative for ACS. EKG sinus bradycardia with first-degree AV block and nonspecific ST-T changes. Echo July 2019 EF 65%, stage III diastolic dysfunction, moderate pulmonary hypertension admission above. Troponins negative. Chronic alcohol use and dependence: Currently does not show withdrawal symptoms. Bilateral knee swelling: Patient has mild leukocytosis. Orthopedic surgeon consulted for thoracentesis. No fever. Will wait for arthrocentesis analysis before putting on antibiotic. Other comorbidities as mentioned I have discussed my assessment with CALIN Gregory and orders have been reviewed. Visit Charges Inpatient E&M: 59694 Subs Hosp L2
[2021-01-15 13:44] LABS: Pathologist Review Reviewed
--- NOTE | 2021-01-15 15:19 | CASEMGMT ---
Pt screened with [facility] Palliative Screening Tool due to Strata 3, pt did not meet criteria.
[2021-01-15] MEDS: Sucralfate 1 GM Tablet PO (21:53)
[2021-01-15] MEDS: Mirtazapine 15 MG Tablet PO (21:53)
[2021-01-15] MEDS: Atorvastatin Calcium 20 MG Tablet PO (21:53)
[2021-01-16] VITALS (11 sets, daily range): BP systolic 101–137; BP diastolic 55–76; PULSE 57–71; RESP 18; TEMP 36.2–37.2; O2SAT 86–95
[2021-01-16] MEDS: oxyCODONE 5 MG Tablet 10 MG PO ×3 (01:12→13:46)
[2021-01-16] MEDS: guaiFENesin 10 ML UDC (200MG/10ML) PO (03:00)
[2021-01-16] MEDS: Gabapentin 300 MG Capsule PO (04:29)
[2021-01-16] MEDS: Acetaminophen 325 MG Tablet 650 MG PO (04:31)
--- NOTE | 2021-01-16 05:05 | RAD_ITS ---
STUDY: X-RAY CHEST REASON FOR EXAM: Male, 80 years old. unrelieved cough, wbc of 13.4 TECHNIQUE: PA and lateral chest. COMPARISON: July 23, 2018. FINDINGS: Mildly elevated left hemidiaphragm. Blunting of the costophrenic angles probably representing pleural scar. There is density at the left lung base however this appears not to have changed since the prior study.. No pneumothorax. Normal size heart. Normal mediastinum and chas. Normal visualized pulmonary arteries. Normal visualized aortic arch and descending thoracic aorta. Normal visualized thoracic spine. Normal visualized ribs, clavicles, and shoulders. Post cervical fusion. There is no demonstrated abnormality of the visualized soft tissue structures of the upper abdomen. RAD/Chest PA and Lateral IMPRESSION: Stable chest, no acute cardiopulmonary disease. If there is a high clinical suspicion of pneumonia at the left lung base correlating with CT. Electronically Signed: Lavon Espinoza MD at 6:01 EDT , Service support ,
[2021-01-16] MEDS: Benzonatate 100 MG Capsule PO (05:39)
[2021-01-16 06:06] LABS: Absolute Lymphocyte Count 0.93 X10^3/uL (0.83-4.51); Absolute Neutrophil Count 11.2 X10^3/uL (2.0-7.7); Basophil# 0.04 X10^3/uL; Basophil% 0.3 % (0-1); Eosinophil# 0.05 X10^3/uL; Eosinophils% 0.4 % (0-5); Hematocrit 37.5 % (40-54); Lymphocyte # 0.93 X10^3/ul (0.83-4.51); Lymphocyte % 6.6 % (19-41); Mean Corpuscular Hgb 33.6 pg (27.0-32.0); Monocyte# 1.67 X10^3/uL; Monocyte% 11.9 % (0-10); NRBC Flagged by Analyzer 0 % (0-5); Neutrophil # 11.23 X10^3/uL (2.7-7.7); Neutrophil % 80.2 % (47-70); POSITIVE DIFFERENTIAL YES; Platelet Count 240 K/mm3 (150-450); RBC Distribution Width CV 13.4 % (11.6-14.6); RBC Distribution Width SD 52.1 fl (35.1-43.9); Red Blood Count 3.57 M/mm3 (4.6-6.2)
[2021-01-16 06:12] LABS: Differential Indicated SCAN CRITERIA MET
[2021-01-16 06:44] LABS: Anion Gap 6 (5-15); BUN 22 mg/dL (7-18); BUN/Creat Ratio 16.4 RATIO (10-20); Calcium,Total 8.7 mg/dL (8.5-10.1); Chloride 104 mmol/L (98-107); Creatinine, Serum 1.34 mg/dL (0.70-1.30); EST Glomerular Filtration Rate 55 mL/min (>60); Est Glom Filt Rate - Afr Amer 66 mL/min (>60); Estimated Creatinine Clearance 46.91 ml/min; Glucose 101 mg/dL (74-106); Potassium 3.9 mmol/L (3.5-5.1); Sodium Level 136 mmol/L (136-145)
[2021-01-16] MEDS: Betamethasone/Betamethasone 30 MG/5 ML Vial INTRAARTIC (07:39)
[2021-01-16] MEDS: Lidocaine 1% (5 ml sdv) 5 ML Vial 4 ML INFILT (07:39)
--- NOTE | 2021-01-16 07:41 | PCM.CONS.GEN ---
Assessment & Plan Assessment/Plan (1) Left knee pain: PLAN: Impression, left knee pain, osteoarthritis. Effusion 1. Continue all pain medications as prescribed 2. Pending lab results of synovial fluid analysis possible injection of cortisone. 3. Physical therapy weight-bear as tolerated with walker encourage range of motion. 4. Ice to the left knee. 5. If cleared by medicine begin an oral anti-inflammatory HPI Consult Data Date of Consult: 01/16/21 HPI Narrative Reason for Consultation: Painful left knee HPI Narrative: FILOMENA JACOBSON, is a 80 M who presents [facility] Medical History Anxiety and depression Atrial fibrillation Cervical post-laminectomy syndrome CHF (congestive heart failure) COPD (chronic obstructive pulmonary disease) GERD (gastroesophageal reflux disease) Hearing loss, left Hearing loss, right Hyperlipidemia Hypertension Migraines PAF (paroxysmal atrial fibrillation) RLS (restless legs syndrome) TIA (transient ischemic attack) Home Medications aspirin 81 mg PO DAILY 07/23/19 [History Last Taken Unknown] cholecalciferol (vitamin D3) 1,000 unit PO DAILY 07/23/19 [History Last Taken Unknown] citalopram 40 mg PO DAILY 07/23/19 [History Last Taken Unknown] furosemide 40 mg PO DAILY 07/23/19 [History Last Taken Unknown] nitroglycerin 0.4 mg SL X1 PRN 07/23/19 [History Last Taken Unknown] ropinirole 1 mg PO PRN PRN 07/23/19 [History Last Taken Unknown] simvastatin 40 mg PO QHS 07/23/19 [History Last Taken Unknown] apixaban 5 mg PO BID tab 07/26/19 [Rx Last Taken Unknown] Vitamin B-12 5,000 units PO/SL DAILY 01/12/21 [History Last Taken Unknown] amiodarone 200 mg PO DAILY 01/12/21 [History Last Taken Unknown] metoprolol succinate 50 mg PO DAILY 01/12/21 [History Last Taken Unknown] mirtazapine 15 mg PO QHS 01/12/21 [History Last Taken Unknown] pantoprazole 40 mg PO DAILY 01/12/21 [History Last Taken Unknown] sucralfate 1 g PO QHS 01/12/21 [History Last Taken Unknown] Allergy/AdvReac Type Severity Reaction Status Date / Time hydromorphone [From Dilaudid] AdvReac Itching Verified 07/23/19 19:48 Family History Other CVA (cerebral vascular accident) Cirrhosis Surgical History History of back surgery Hx of abdominal surgery Social History Smoking Status: Former smoker alcohol intake: current details: Heavy drinker. Drinks about 4-6 beers per day. Physical Exam Narrative Patient sleeping comfortably in bed. Patient easy to awake. Patient alert to person place and time. Cranial nerves II through XII grossly intact. Patient good range of motion of the upper extremities with good muscle tone and strength. Patient is good range of motion of the bilateral hips. Exam of the left knee was cool to touch nonerythematous with +2 effusion. Patient was tender to palpation to the medial lateral and anterior surface of the knee. Patient had positive crepitus of the patellofemoral region. Patient was lacking approximately 10 degrees of extension, and flexion to 110 degrees with pain. The knee did not appear to be septic in nature. There was no calf tenderness. Neurovascular is otherwise intact. Under sterile conditions I entered the lateral aspect of left knee lateral to the patella tendon. I was at able to aspirate approximately 12 cc of a blood-tinged cloudy synovial fluid. The patient tolerated this very well the area was covered with a Band-Aid Const alert General Appearance: cooperative and comfortable HEENT normocephalic Head and Scalp: normal to inspection Face and Sinus: normal facial exam Eyes PERRL Lab / Micro Data Result Diagrams: 01/16/21 05:38 01/16/21 05:38 Labs: Laboratory Results - last 24 hr 01/15/21 01/16/21 01/16/21 06:04 05:38 05:38 WBC 14.0 H RBC 3.57 L Hgb 12.0 L Hct 37.5 L MCV 105.0 H MCH 33.6 H MCHC 32.0 RDW Std Deviation 52.1 H RDW Coeff of Rudy 13.4 Plt Count 240 MPV 10.0 Immature Gran % (Auto) 0.600 Neut % (Auto) 80.2 H Lymph % (Auto) 6.6 L [place] % (Auto) 11.9 H Eos % (Auto) 0.4 Baso % (Auto) 0.3 Absolute Neuts (auto) 11.2 H Absolute Lymphs (auto) 0.93 Nucleated RBC % 0 Diff Path Review Reviewed December foll Sodium 136 Potassium 3.9 Chloride 104 Carbon Dioxide 26.0 Anion Gap 6 BUN 22 H Creatinine 1.34 H Estim Creat Clear Calc 46.91 Est GFR (MDRD) Af Amer 66 Est GFR (MDRD) Non-Af 55 L BUN/Creatinine Ratio 16.4 Glucose 101 Calcium 8.7 Micro: Microbiology 01/15/21 12:25 SARS-CoV-2 Antigen (Rapid) - Final Interface Orders Radiology Impression Brain CT 01/15/21 10:21 IMPRESSION: Chronic involutional changes of the brain. No acute hemorrhage or significant interval change N.B. : The above information has been verbally conveyed by Bala Moreno MD to DARA Daniels, on 01/15/2021 10:54:21 (ET). Electronically Signed: Bala Moreno MD at 10:55 EDT , Service support , ADDENDUM: 01/15/21 1102 IMPRESSION: Chronic involutional changes of the brain. No acute hemorrhage or significant interval change N.B. : The above information has been verbally conveyed by Bala Moreno MD to DARA Daniels, on 01/15/2021 10:54:21 (ET). Electronically Signed: Bala Moreno MD at 10:55 EDT , Service support , Chest X-Ray 01/16/21 05:05 IMPRESSION: Stable chest, no acute cardiopulmonary disease. If there is a high clinical suspicion of pneumonia at the left lung base correlating with CT. Electronically Signed: Lavon Espinoza MD at 6:01 EDT , Service support ,
[2021-01-16 09:02] LABS: Erythrocyte Sedimentation Rate 106 mm/hr (0-20)
[2021-01-16] MEDS: Folic Acid 1 MG Tablet PO (09:20)
[2021-01-16] MEDS: Citalopram 40 MG TABLET PO (09:20)
[2021-01-16] MEDS: Pantoprazole Sodium 40 MG Tablet PO (09:20)
[2021-01-16] MEDS: Thiamine Hydrochloride 100 MG Tablet PO (09:20)
[2021-01-16] MEDS: Aspirin 81 MG TAB.CHEW PO (09:20)
[2021-01-16] MEDS: Amiodarone 200 MG Tablet PO (09:21)
[2021-01-16] MEDS: Metoprolol(XL)Succ 50 MG Tablet PO (09:21)
[2021-01-16] MEDS: Cholecalciferol (VIT D3) 25 MCG TABLET (1,000 UNITS) PO (09:21)
[2021-01-16] MEDS: APIXABAN 5 MG TABLET PO (10:04)
[2021-01-16] MEDS: DiphenhydrAMINE 25 MG Capsule PO (10:04)
[2021-01-16 10:16] LABS: Pathologist Review Reviewed
[2021-01-16 10:26] LABS: Pathologist Comment May follow; Pathologist Comment/Body Fluid May follow
--- NOTE | 2021-01-16 11:27 | PCM.TXEXTCAR ---
Documented by User: Mark LAYTON 01/16/21 14:43 Diet 01/13/21 01:30 Diet: Cardiac - Heart Healthy Food consistency:: Regular Liquid Consistency:: Regular/Thin Diet Comments: Fruit ice TID w/ meals Wound(s) lt knee: Wound Type: aspirate site top of head: Wound Type: dry small scabs Problem/Diagnosis (1) Left knee pain: Status: Acute Comment: Continue to monitor swelling about knees; observe for erythema, tenderness, worsening of swelling or development of constitutional symptoms. Follow-up with orthopedics for steroid injection on 01/23/2021. Will discharge on course of antibiotics Allergies/Procedures Done in Hospital Allergies hydromorphone [From Dilaudid] Adverse Reaction (Verified 07/23/19 19:48) Itching Type of Care/Length of Stay Estimated LOS: Convalescent Care Less Than 30 days Type of Care Needed: Skilled Rehab Potential: Fair Prognosis: Fair Additional Orders/Day of Discharge Day of Discharge: 01/16/21 Dietary and Speech Recommendations Dietitian Recommendations/Changes: Will continue cardiac diet as ordered. Will continue ensure enlive w/ medpass as ordered; d/c on follow-up if intake remains adequate at meals and wt remains stable. Will add fruit ice w/ meals per pt request. Discharge Plan Admission Admit Date/Time: 01/13/21 01:30 Primary Reason for Your Visit: Syncope/Fall secondary to acute alcohol intoxication Attending Provider: Sukhi Katz Primary Care Provider: Phong Machado Consulting Providers: Colt Beckford Instructions Patient Instructions: ED Chest Pain, Noncardiac Discharge Orders/Prescriptions Prescriptions: New doxycycline hyclate 100 mg capsule 100 mg PO BID Qty: 20 RF: 0 oxycodone 5 mg capsule 5 mg PO Q8H PRN (Reason: pain) 5 Days Qty: 15 RF: 0 Continued furosemide 40 MG tablet 40 mg PO DAILY RF: 0 ropinirole 1 MG tablet 1 mg PO PRN PRN (Reason: restless legs) RF: 0 citalopram 40 MG tablet 40 mg PO DAILY RF: 0 simvastatin 40 MG tablet 40 mg PO QHS RF: 0 aspirin 81 MG tablet,chewable 81 mg PO DAILY RF: 0 cholecalciferol (vitamin D3) 2,000 UNIT capsule 1,000 unit PO DAILY RF: 0 nitroglycerin 0.4 MG tablet, sublingual 0.4 mg SL X1 PRN (Reason: chest pain) RF: 0 apixaban 5 MG tablet 5 mg PO BID RF: 0 amiodarone 200 mg Tablet 200 mg PO DAILY RF: 0 metoprolol succinate 50 mg Capsule,Sprinkle,Er 24hr 50 mg PO DAILY RF: 0 mirtazapine 15 mg Tablet 15 mg PO QHS RF: 0 pantoprazole 40 mg Tablet,Delayed Release (Dr/Ec) 40 mg PO DAILY RF: 0 sucralfate 1 gram Tablet 1 g PO QHS RF: 0 Vitamin B-12 5,000 units PO/SL DAILY RF: 0 Referrals / Follow Up: Phong Machado MD [Primary Care Provider] - 01/19/21 10:15 am Disposition Disposition (needs filled in before D/C Order can be placed): [facility] Documented by User: Dr. Sukhi Katz MD 01/16/21 15:34 Allergies/Procedures Done in Hospital Allergies hydromorphone [From Dilaudid] Adverse Reaction (Verified 07/23/19 19:48) Itching Discharge Plan Admission Admit Date/Time: 01/13/21 01:30 Primary Reason for Your Visit: Syncope/Fall secondary to acute alcohol intoxication Attending Provider: Sukhi Katz Primary Care Provider: Phong Machado Consulting Providers: Colt Beckford Instructions Patient Instructions: ED Chest Pain, Noncardiac Discharge Orders/Prescriptions Prescriptions: New doxycycline hyclate 100 mg capsule 100 mg PO BID Qty: 20 RF: 0 oxycodone 5 mg capsule 5 mg PO Q8H PRN (Reason: pain) 5 Days Qty: 15 RF: 0 Continued furosemide 40 MG tablet 40 mg PO DAILY RF: 0 ropinirole 1 MG tablet 1 mg PO PRN PRN (Reason: restless legs) RF: 0 citalopram 40 MG tablet 40 mg PO DAILY RF: 0 simvastatin 40 MG tablet 40 mg PO QHS RF: 0 aspirin 81 MG tablet,chewable 81 mg PO DAILY RF: 0 cholecalciferol (vitamin D3) 2,000 UNIT capsule 1,000 unit PO DAILY RF: 0 nitroglycerin 0.4 MG tablet, sublingual 0.4 mg SL X1 PRN (Reason: chest pain) RF: 0 apixaban 5 MG tablet 5 mg PO BID RF: 0 amiodarone 200 mg Tablet 200 mg PO DAILY RF: 0 metoprolol succinate 50 mg Capsule,Sprinkle,Er 24hr 50 mg PO DAILY RF: 0 mirtazapine 15 mg Tablet 15 mg PO QHS RF: 0 pantoprazole 40 mg Tablet,Delayed Release (Dr/Ec) 40 mg PO DAILY RF: 0 sucralfate 1 gram Tablet 1 g PO QHS RF: 0 Vitamin B-12 5,000 units PO/SL DAILY RF: 0 Referrals / Follow Up: Phong Machado MD [Primary Care Provider] - 01/19/21 10:15 am Disposition Disposition (needs filled in before D/C Order can be placed): Prison Facility
[2021-01-16 12:13] LABS: AUTO B FLUID DILUENT BKGD CT WBC <0.1 RBC <0.01 (W<.1,R<.01); Appearance/Body Fluid CLEAR; Auto B Fluid Analyzer BKGD Ct COUNTS W/IN LIMITS (W/IN LIMITS); Color/Body Fluid SLIGHTLY PINK; Source- Body Fluid OTHER
[2021-01-16 12:15] LABS: Red Cell Count/Body Fluid 0.084 10^6/ul
[2021-01-16 12:16] LABS: Body Fluid Mononuclear WBC # 0.453 10^3/uL; Body Fluid Mononuclear WBC % 3.1 %; Body Fluid Polynuclear WBC % 96.9 %
[2021-01-16 12:17] LABS: Appearance /Synovial Fluid Clear (CLEAR); Body Fluid Polynuclear WBC # 13.992 10^3/uL; Color / Synovial Fluid Pink (Pale Yellow)
[2021-01-16 12:19] LABS: RBC /Synovial Fluid 0.084 10^6/uL (0); Synovial Fld Polynuclear WBC % 96.9 %
[2021-01-16 12:20] LABS: Synovial Fld Mononuclear WBC # 0.453 10^3/ul; Synovial Fld Mononuclear WBC % 3.1 %; Synovial Fld Polynuclear WBC # 13.992 10^3/uL
[2021-01-16 12:33] LABS: Lymphocytes 17 %; Monocytes 1 %; Neutrophil (Segs) 82 %; Source- Body Fluid SYNOVIAL
[2021-01-16 12:40] LABS: Body Fluid QC Type(s) BF1Q,BF2Q; Lymph 17 %; Monocyte /Synovial Fluid 1 %; Neutrophil 82 % (0-25)
--- NOTE | 2021-01-16 14:22 | DS.PCM_ITS ---
Documented by User: Mark LAYTON 01/16/21 14:29 Providers Date of Admission: 01/13/21 Primary Care Physician: Dr. Phong Machado MD Consultations 01/15/21 17:59 Consult: Orthopedics Routine Consulting Provider: Colt Beckford Reason for Consult: Left knee effusion EMERGENT Consult: No MD Notified: Yes Date Notified:: 01/15/21 Time Notified: 18:02 Method of Notification: paged Reason For Visit: SYNCOPE,DESIRE FOR DETOXIFICATION Diagnosis Discharge Diagnosis (1) Left knee pain: Status: Acute Code(s): M25.562 - Pain in left knee Medications at Discharge Home Medications aspirin 81 mg PO DAILY 07/23/19 cholecalciferol (vitamin D3) 1,000 unit PO DAILY 07/23/19 citalopram 40 mg PO DAILY 07/23/19 furosemide 40 mg PO DAILY 07/23/19 nitroglycerin 0.4 mg SL X1 PRN 07/23/19 ropinirole 1 mg PO PRN PRN 07/23/19 simvastatin 40 mg PO QHS 07/23/19 apixaban 5 mg PO BID tab 07/26/19 Vitamin B-12 5,000 units PO/SL DAILY 01/12/21 amiodarone 200 mg PO DAILY 01/12/21 metoprolol succinate 50 mg PO DAILY 01/12/21 mirtazapine 15 mg PO QHS 01/12/21 pantoprazole 40 mg PO DAILY 01/12/21 sucralfate 1 g PO QHS 01/12/21 doxycycline hyclate 100 mg PO BID #20 cap 01/16/21 oxycodone 5 mg PO Q8H PRN 5 Days #15 cap 01/16/21 Hospital Course Summary of Care Provided Minutes Spent on Discharge: 35 Hospital Course: Patient is a 80-year-old male who was admitted to [facility] on 01/13/2021 for syncope secondary to alcohol intoxication and fall. Patient has been complaining of left and right knee swelling, most likely secondary to fall patient suffered prior to admission. Orthopedics was consulted, fluid from the knee was aspirated, results as above. Orthopedics recommends follow-up on 01/23/2021 as an outpatient and to be discharged on doxycycline 100 mg p.o. twice daily x10 days. Patient to be discharged today to [facility]. 1) Syncope/Chest pain Possibly related to his acute alcohol intoxication. Cervical spine CT did not show any acute findings, and only showed bibasilar airspace disease and cardiomegaly. Chest x-ray unremarkable. EKG obtained in the ED only demonstrated sinus bradycardia with first-degree AV block and nonspecific ST/T wave changes in 1, aVL, V4 to V6. Echocardiogram from 07/24/2019: est EF of 65%, stage III diastolic dysfunction, pulmonary artery systolic pressure of 50 mmHg, and moderate pulmonary HTN. Troponins not elevated throughout cycle. Plan; continue amiodarone, continue Toprol, continue aspirin, continue statin. 2) Alcohol dependence and desire for detoxification Patient endorses drinking 4-6 beers intermittently, believe patient is a low risk for acute alcohol withdrawal. Ethyl alcohol 242. Denies any other drug use, to include prescribed or illicit. Urine tox screen positive for cannabinoids only. Plan; phenobarb taper initiated, gabapentin as needed, dicyclomine as needed, Vistaril as needed, methocarbamol as needed, clonidine as needed, Imodium as needed, trazodone as needed, Zofran as needed. Thiamine and folic acid ordered, patient to seek outpatient follow-up, ramp program discontinued. 3) Tobacco abuse Continue nicotine patch. 4) Debililty Patient reports that left knee swelling has improved from yesterday, but now complains of swelling about the right knee. Knees appeared about the same size during physical exam, left knee does appear improved from yesterday. Knee is tender to palpation bilaterally. Believe the effusion and ongoing knee pain is secondary to fall prior to admission. Effusion evident on physical exam. X-ray of the left knee only demonstrated effusion. PT/OT eval recommends SNF placement upon discharge. Patient now agreeable to SNF placement. Plan; as above. 5) JANIE Creatinine currently 1.34, down from mission. Patient seen by Mark Elena PA-C, under the supervision of Dr. Katz. Physical Exam Narrative Patient is a 80-year-old male who is comfortably resting in bed, alert and oriented x3. Patient reports no change or progression in the swelling about his left or right knee. Denies chest pain, shortness of breath, palpitations, fever, chills, N/V/D. Const alert, oriented x3, no apparent distress and average body habitus HEENT normocephalic, head/scalp atraumatic, hearing grossly normal bilaterally and moist oral mucous membranes Eyes PERRL, EOMs intact bilaterally and conjunctivae normal Neck no lymphadenopathy, supple and no JVD Resp normal respiratory effort, no retractions, no use of accessory muscles and clear to auscultation bilaterally Cardio regular rate, regular rhythm, no murmurs and no JVD GI normal to inspection, nondistended, normoactive bowel sounds, soft to palpation, non-tender and non-distended Extremity normal to inspection, full ROM and no clubbing, cyanosis or edema Skin no rashes or lesions noted, no wounds and skin turgor normal Neuro CN's II-XII intact bilaterally Psych affect normal ABG / Lab / Microbiology Data Result Diagrams: 01/16/21 05:38 01/16/21 05:38 Laboratory: Laboratory Results - last 24 hr 01/16/21 01/16/21 01/16/21 05:38 05:38 05:38 WBC 14.0 H RBC 3.57 L Hgb 12.0 L Hct 37.5 L MCV 105.0 H MCH 33.6 H MCHC 32.0 RDW Std Deviation 52.1 H RDW Coeff of Rudy 13.4 Plt Count 240 MPV 10.0 Immature Gran % (Auto) 0.600 Neut % (Auto) 80.2 H Lymph % (Auto) 6.6 L [place] % (Auto) 11.9 H Eos % (Auto) 0.4 Baso % (Auto) 0.3 Absolute Neuts (auto) 11.2 H Absolute Lymphs (auto) 0.93 Nucleated RBC % 0 Diff Path Review Reviewed ESR 106 H Sodium 136 Potassium 3.9 Chloride 104 Carbon Dioxide 26.0 Anion Gap 6 BUN 22 H Creatinine 1.34 H Estim Creat Clear Calc 46.91 Est GFR (MDRD) Af Amer 66 Est GFR (MDRD) Non-Af 55 L BUN/Creatinine Ratio 16.4 Glucose 101 Calcium 8.7 C-React Prot Ext Range Fluid Source Fluid Color Fluid Appearance Fluid WBC Fluid RBC Fluid Tot Cell Count Fld Polynuclear WBCs # Fld Polynuclear WBCs % Fluid Mononuclear WBCs Fld Mononuclear WBCs % Fluid Neutrophils Fluid Lymphocytes Fluid Monocytes Fluid Crystals Fluid Crystal Source Fl Crystal Path Review Fl Pathologist Comment Fluid Comment 2 Synovial Source Synovial Color Synovial Appearance Synovial WBC Synovial RBC Synovial Tot Cell Ct Synov Polynuclear WBCs Synov Mononuclear WBCs Synovial Neutrophils Synovial Lymphocytes Synovial Monocytes Synovial Polynuclear % Synovial Mononuclear % Synovial Path Comment 01/16/21 01/16/21 05:38 07:30 WBC RBC Hgb Hct MCV MCH MCHC RDW Std Deviation RDW Coeff of Rudy Plt Count MPV Immature Gran % (Auto) Neut % (Auto) Lymph % (Auto) [place] % (Auto) Eos % (Auto) Baso % (Auto) Absolute Neuts (auto) Absolute Lymphs (auto) Nucleated RBC % Diff Path Review ESR Sodium Potassium Chloride Carbon Dioxide Anion Gap BUN Creatinine Estim Creat Clear Calc Est GFR (MDRD) Af Amer Est GFR (MDRD) Non-Af BUN/Creatinine Ratio Glucose Calcium C-React Prot Ext Range 315.00 H Fluid Source OTHER Fluid Color SLIGHTLY PINK Fluid Appearance CLEAR Fluid WBC 17.756 Fluid RBC 0.084 Fluid Tot Cell Count 17.842 Fld Polynuclear WBCs # 13.992 Fld Polynuclear WBCs % 96.9 Fluid Mononuclear WBCs 0.453 Fld Mononuclear WBCs % 3.1 Fluid Neutrophils 82 Fluid Lymphocytes 17 Fluid Monocytes 1 Fluid Crystals NONE Fluid Crystal Source SYNOVIAL Fl Crystal Path Review Will follow Fl Pathologist Comment May follow Fluid Comment 2 SEE COMMENT Synovial Source UNK Synovial Color Rhame Synovial Appearance Clear Synovial WBC 17.7560 H Synovial RBC 0.084 H Synovial Tot Cell Ct 17.8420 H Synov Polynuclear WBCs 13.992 Synov Mononuclear WBCs 0.453 Synovial Neutrophils 82 H Synovial Lymphocytes 17 Synovial Monocytes 1 Synovial Polynuclear % 96.9 Synovial Mononuclear % 3.1 [address]ovial [address] Comment May follow Microbiology: Microbiology 01/16/21 07:30 Gram Stain - Final Fluid - Synovial (joint) 01/15/21 12:25 SARS-CoV-2 Antigen (Rapid) - Final Interface Orders Microbiology 01/16/21 07:30 Fluid - Synovial (joint) Gram Stain - Final 01/15/21 12:25 Interface Orders SARS-CoV-2 Antigen (Rapid) - Final Radiography Diagnostic Testing: Radiology Impression Chest X-Ray 01/16/21 05:05 IMPRESSION: Stable chest, no acute cardiopulmonary disease. If there is a high clinical suspicion of pneumonia at the left lung base correlating with CT. Electronically Signed: Lavon Espinoza MD at 6:01 EDT , Service support , Meaningful Use Info Meaningful Use Diagnoses (Choose all that apply): None applicable Discharge Plan Admission Admit Date/Time: 01/13/21 01:30 Primary Reason for Your Visit: Syncope/Fall secondary to acute alcohol intoxication Attending Provider: Sukhi Katz Primary Care Provider: Phong Machado Consulting Providers: Colt Beckford Instructions Patient Instructions: ED Chest Pain, Noncardiac Discharge Orders/Prescriptions Prescriptions: New doxycycline hyclate 100 mg capsule 100 mg PO BID Qty: 20 RF: 0 oxycodone 5 mg capsule 5 mg PO Q8H PRN (Reason: pain) 5 Days Qty: 15 RF: 0 Continued furosemide 40 MG tablet 40 mg PO DAILY RF: 0 ropinirole 1 MG tablet 1 mg PO PRN PRN (Reason: restless legs) RF: 0 citalopram 40 MG tablet 40 mg PO DAILY RF: 0 simvastatin 40 MG tablet 40 mg PO QHS RF: 0 aspirin 81 MG tablet,chewable 81 mg PO DAILY RF: 0 cholecalciferol (vitamin D3) 2,000 UNIT capsule 1,000 unit PO DAILY RF: 0 nitroglycerin 0.4 MG tablet, sublingual 0.4 mg SL X1 PRN (Reason: chest pain) RF: 0 apixaban 5 MG tablet 5 mg PO BID RF: 0 amiodarone 200 mg Tablet 200 mg PO DAILY RF: 0 metoprolol succinate 50 mg Capsule,Sprinkle,Er 24hr 50 mg PO DAILY RF: 0 mirtazapine 15 mg Tablet 15 mg PO QHS RF: 0 pantoprazole 40 mg Tablet,Delayed Release (Dr/Ec) 40 mg PO DAILY RF: 0 sucralfate 1 gram Tablet 1 g PO QHS RF: 0 Vitamin B-12 5,000 units PO/SL DAILY RF: 0 Referrals / Follow Up: Phong Machado MD [Primary Care Provider] - 01/19/21 10:15 am Disposition Disposition (needs filled in before D/C Order can be placed): [facility] Documented by User: Dr. Sukhi Katz MD 01/16/21 16:27 Providers Date of Admission: 01/13/21 Reason For Visit: SYNCOPE,DESIRE FOR DETOXIFICATION Medications at Discharge Home Medications aspirin 81 mg PO DAILY 07/23/19 cholecalciferol (vitamin D3) 1,000 unit PO DAILY 07/23/19 citalopram 40 mg PO DAILY 07/23/19 furosemide 40 mg PO DAILY 07/23/19 nitroglycerin 0.4 mg SL X1 PRN 07/23/19 ropinirole 1 mg PO PRN PRN 07/23/19 simvastatin 40 mg PO QHS 07/23/19 apixaban 5 mg PO BID tab 07/26/19 Vitamin B-12 5,000 units PO/SL DAILY 01/12/21 amiodarone 200 mg PO DAILY 01/12/21 metoprolol succinate 50 mg PO DAILY 01/12/21 mirtazapine 15 mg PO QHS 01/12/21 pantoprazole 40 mg PO DAILY 01/12/21 sucralfate 1 g PO QHS 01/12/21 doxycycline hyclate 100 mg PO BID #20 cap 01/16/21 oxycodone 5 mg PO Q8H PRN 5 Days #15 cap 01/16/21 Hospital Course Summary of Care Provided Hospital Course: ?This patient was seen in conjunction with CALIN Gregory.? I have independently interviewed and examined the patient and reviewed pertinent history, examination findings, laboratory and plan of management.? I have? reviewed the note and agree with the documented findings with the few? additional points. In brief, patient is admitted for syncope after alcohol intoxication and fall.? Patient also had chest pain which was negative for ACS.? EKG sinus bradycardia with first-degree AV block and nonspecific ST-T changes.? Echo July 2019 EF 65%, stage III diastolic dysfunction, moderate pulmonary hypertension admission above.? Troponins negative. Chronic alcohol use and dependence: Currently does not show withdrawal symptoms. Bilateral knee swelling: Patient has mild leukocytosis.? Orthopedic surgeon cons ulted for thoracentesis.? No fever.? Arthrocentesis was done and shows synovial WBC count 17.7 thousand with neutrophil 82%. Crystals negative. Culture pending. Patient started on doxycycline 100 mg twice daily for 10 days and discharged on oxycodone and other medications. Patient advised to follow-up with orthopedic clinic. Other comorbidities as mentioned I have discussed my assessment with CALIN Gregory and orders have been reviewed. Discharge medication reconciliation done. Discharge follow-up instructions completed. Discharge process discussed with the patient and all questions were answered to patient's satisfaction. Discharged to SNF. Total time spent, exact 35 minutes on discharge meds reconciliation, examination, coordination of care with nurses and ancillary staff, review of imaging and blood test and discussion with the patient on follow-up instructions Physical Exam Narrative Seen and examined. Patient had a left knee arthrocentesis done. Decrease in the pain after arthrocentesis. Started on antibiotic doxycycline. Leukocytosis 13,000. General: Alert, Oriented x3, Cooperative HEENT: Atraumatic, PERRLA, EOMI, Normocephalic Oral: No Gingival or Mucosal Lesions/ Ulcerations Neck: Supple, No JVD, Negative Carotid Bruits Lungs: Air entry diminished in bilateral lung bases. No crepitation/rhonchi Cardiovascular: Regular rate, Regular Rhythm, Normal S1, Normal S2, No murmurs Abdomen: Bowel Sounds Present, Soft, Non Tender, Non-Distended : No renal angle tenderness. No suprapubic tenderness. Extremities: Mild bilateral ankle edema, Capillary Refill Less than 3 Seconds Skin: No rashes, No breakdown Musculoskeletal: Bilateral knee tender status post arthrocentesis. Tenderness on both knees. Neurological: Cranial nerves II-XII grossly intact, Deep Tendon Reflexes 2+/4 and Symmetrical, Neuro grossly intact Psych/Mental Status: Flat affect. ABG / Lab / Microbiology Data Result Diagrams: 01/16/21 05:38 01/16/21 05:38 Discharge Plan Admission Admit Date/Time: 01/13/21 01:30 Primary Reason for Your Visit: Syncope/Fall secondary to acute alcohol intoxication Attending Provider: Sukhi Katz Primary Care Provider: Phong Machado Consulting Providers: Colt Beckford Instructions Patient Instructions: ED Chest Pain, Noncardiac Discharge Orders/Prescriptions Prescriptions: New doxycycline hyclate 100 mg capsule 100 mg PO BID Qty: 20 RF: 0 oxycodone 5 mg capsule 5 mg PO Q8H PRN (Reason: pain) 5 Days Qty: 15 RF: 0 Continued furosemide 40 MG tablet 40 mg PO DAILY RF: 0 ropinirole 1 MG tablet 1 mg PO PRN PRN (Reason: restless legs) RF: 0 citalopram 40 MG tablet 40 mg PO DAILY RF: 0 simvastatin 40 MG tablet 40 mg PO QHS RF: 0 aspirin 81 MG tablet,chewable 81 mg PO DAILY RF: 0 cholecalciferol (vitamin D3) 2,000 UNIT capsule 1,000 unit PO DAILY RF: 0 nitroglycerin 0.4 MG tablet, sublingual 0.4 mg SL X1 PRN (Reason: chest pain) RF: 0 apixaban 5 MG tablet 5 mg PO BID RF: 0 amiodarone 200 mg Tablet 200 mg PO DAILY RF: 0 metoprolol succinate 50 mg Capsule,Sprinkle,Er 24hr 50 mg PO DAILY RF: 0 mirtazapine 15 mg Tablet 15 mg PO QHS RF: 0 pantoprazole 40 mg Tablet,Delayed Release (Dr/Ec) 40 mg PO DAILY RF: 0 sucralfate 1 gram Tablet 1 g PO QHS RF: 0 Vitamin B-12 5,000 units PO/SL DAILY RF: 0 Referrals / Follow Up: Phong Machado MD [Primary Care Provider] - 01/19/21 10:15 am Disposition Disposition (needs filled in before D/C Order can be placed): [facility] Visit Charges Inpatient E&M: 08722 Disch Hosp
--- NOTE | 2021-01-16 14:37 | PHA.DC.MR ---
Pharmacy Service has performed discharge medication reconciliation for this patient. The patient's discharge medication list was reviewed for discrepancies and discrepancies were resolved. Home Medications aspirin 81 mg PO DAILY 07/23/19 cholecalciferol (vitamin D3) 1,000 unit PO DAILY 07/23/19 citalopram 40 mg PO DAILY 07/23/19 furosemide 40 mg PO DAILY 07/23/19 nitroglycerin 0.4 mg SL X1 PRN 07/23/19 ropinirole 1 mg PO PRN PRN 07/23/19 simvastatin 40 mg PO QHS 07/23/19 apixaban 5 mg PO BID tab 07/26/19 Vitamin B-12 5,000 units PO/SL DAILY 01/12/21 amiodarone 200 mg PO DAILY 01/12/21 metoprolol succinate 50 mg PO DAILY 01/12/21 mirtazapine 15 mg PO QHS 01/12/21 pantoprazole 40 mg PO DAILY 01/12/21 sucralfate 1 g PO QHS 01/12/21 doxycycline hyclate 100 mg PO BID #20 cap 01/16/21
--- NOTE | 2021-01-16 14:47 | CASEMGMT ---
DIOGENES spoke with Leila at [facility] and let her know that patient will be coming today. Karina Miller PEDIATRIC OPHTHALMOLOGIST RUBIA
--- NOTE | 2021-01-16 15:14 | CASEMGMT ---
Addendum entered by Enriqueta Todd 01/16/21 15:39: All discharge instructions, scripts, and med list faxed to [facility]. ADRIENNE Hendrickson Original Note: Pt is ready for discharge today. SW completed hospital exemption in [place], COVID test from yesterday negative. SW set up 4:30pm ambulance w/Physicians. SW let pt, bedside RN, and Leila at [facility] know time of transport. SW also let pt know time of transport. Pt has been vaccinated, SW let know to bring in vaccine card to assisted. SW spoke w/Leila at [place] regarding visitation since pt has been vaccinated; she states visitation is 10-6 M-F and 10-4 Friday and Friday, family needs to call ahead. SW let know this. SW will fax discharge instrucitons to [place] once they are completed. ADRIENNE Hendrickson
--- NOTE | 2021-01-16 15:35 | NURSING ---
report called to [facility] on pt's dc today at 1630. cm attempted to call but phones acting up per pt. message left with pt's daughter for when got off work.
[2021-01-17 13:18] LABS: Pathologist Review Reviewed
== END 2021-01-16 17:09 | disposition skilled nursing facility (03) | DRG 897 ==
LOC: ED 01-13 00:14 → PCU 01-13 00:51
PROVIDERS: Physician Assistant; Admitting Provider Hospitalist; Emergency Provider Emergency Medicine; PCP Family Medicine; Visit Provider Internal Medicine
DX: F10.229 Alcohol dependence with intoxication, unspecified (principal); N17.9 Acute kidney failure, unspecified; R55 Syncope and collapse; R07.9 Chest pain, unspecified; Y90.8 Blood alcohol level of 240 mg/100 ml or more; R53.81 Other malaise; Z72.0 Tobacco use; D72.829 Elevated white blood cell count, unspecified; M25.462 Effusion, left knee; M17.12 Unilateral primary osteoarthritis, left knee; W18.30XA Fall on same level, unspecified, initial encounter; Y93.89 Activity, other specified; Y92.000 Kitchen of unspecified non-institutional (private) residence as the place of occurrence of the external cause; Y99.8 Other external cause status
CPT/HCPCS: 36415; 70450; 71045; 71046; 72125; 73502; 73560; 74176; 80048; 80053; 80307; 81001; 82077; 83690; 84484; 85025; 85652; 86140; 87070; 87075; 87205; 87426; 89050; 89051; 89060; 93005; 97110; 97162; 97165; 97530; 97535; 97802; 99285; J7030; A4216; J0702

== ENCOUNTER 2021-04-30 14:39 | Emergency (ER) | payer OTHER, MEDICARE, SELFPAY ==
[2021-04-30 14:40] VITALS: BP 130/88; PULSE 71; RESP 24; TEMP 36.8; O2SAT 94; BMI 25.5
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
--- NOTE | 2021-04-30 15:07 | CT_ITS ---
STUDY: CT CERVICAL SPINE WITHOUT CONTRAST REASON FOR EXAM: Male, 80 years old. Trauma RADIATION DOSAGE (If Supplied By Facility): CTDIvol = ( 24.03 ) mGy, DLP = ( 478.32 ) mGycm TECHNIQUE: High resolution transaxial imaging was performed without contrast material. Sagittal and coronal images were reconstructed. Individualized dose optimization techniques were used for this CT. COMPARISON: 01/12/2021 FINDINGS: Normal craniovertebral junction. Normal anterior atlantoaxial articulation. Normal odontoid process. Normal cervical lordosis. Normal vertebral bodies and posterior osseous elements. C2-3: Mild left facet hypertrophy. No spinal stenosis or neural foraminal stenosis. C3-4: Mild bilateral disc osteophyte complex and bilateral hypertrophy produces mild spinal stenosis and mild bilateral neural foraminal stenosis. C4-5: Status post anterior cervical discectomy and fusion with bony bridging with anatomic alignment with no spinal stenosis but some bilateral degenerative hypertrophy. Small bilateral neural foraminal stenosis. C5-6: Status post anterior cervical discectomy and fusion with bony bridging with anatomic alignment and no spinal stenosis but mild bilateral uncovertebral hypertrophy which produces mild bilateral neural foraminal stenosis. C6-7: Status post anterior cervical discectomy and fusion with bony bridging with anatomic alignment and no spinal stenosis or neural foraminal stenosis. C7-T1: Normal endplates. Normal disc height and morphology. Normal central canal and intervertebral neuroforamina. Normal visualized soft tissue structures. CT/Spine Cervical without Contras IMPRESSION: No acute fracture or subluxation. Electronically Signed: Mert Carlin MD at 16:09 EDT Tel , Service support ,
--- NOTE | 2021-04-30 15:07 | CT_ITS ---
STUDY: CT BRAIN WITHOUT CONTRAST REASON FOR EXAM: Male, 80 years old. Trauma RADIATION DOSAGE (If Supplied By Facility): CTDIvol = ( 44.99 ) mGy, DLP = ( 812.98 ) mGycm TECHNIQUE: Transaxial CT imaging of the brain was performed without administration of intravenous contrast material. Individualized dose optimization techniques were used for this CT. COMPARISON: 01/12/2021 FINDINGS: Normal soft tissue structures. Normal calvarium. There is mild cerebral atrophy with widening of the extra-axial spaces and ventricular dilatation. There are areas of decreased attenuation within the white matter tracts of the supratentorial brain, consistent with microvascular disease changes. Normal basal ganglia and thalami. Normal brainstem. Normal cerebellum. There is no intracranial hemorrhage. There are no findings of an acute ischemic infarction. Normal visualized paranasal sinuses. CT/Brain/Head without Contrast IMPRESSION: Chronic involutional changes of the brain. Electronically Signed: Mert Carlin MD at 16:05 EDT Tel , Service support ,
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
[2021-04-30] MEDS: fentaNYL 100 MCG/2 ML Ampul 25 MCG IV (15:20)
[2021-04-30] MEDS: Ondansetron 4 MG/2 ML Vial IV (15:20)
[2021-04-30] MEDS: 0.9% Normal Saline 1,000 ML 999 ML IV (15:20)
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
[2021-04-30 15:49] LABS: International Normalized Ratio 1.2; Prothrombin Time (Protime)PT. 14.5 SECONDS (11.7-14.9)
[2021-04-30 15:56] LABS: Absolute Lymphocyte Count 1.16 X10^3/uL (0.83-4.51); Absolute Neutrophil Count 9.9 X10^3/uL (2.0-7.7); Basophil# 0.03 X10^3/uL; Basophil% 0.2 % (0-1); Eosinophil# 0.04 X10^3/uL; Eosinophils% 0.3 % (0-5); Hematocrit 39.9 % (40-54); Hemoglobin 12.9 g/dL (13.0-16.5); Lymphocyte # 1.16 X10^3/ul (0.83-4.51); Lymphocyte % 9.2 % (19-41); Mean Corp Hgb Conc 32.3 g/dL (32-36); Mean Corpuscular Hgb 34.2 pg (27.0-32.0); Mean Corpuscular Volume 105.8 fL (80-94); Mean Platelet Vol. 9.5 fl (6.2-12.0); Monocyte# 1.46 X10^3/uL; Monocyte% 11.5 % (0-10); NRBC Flagged by Analyzer 0 % (0-5); Neutrophil # 9.87 X10^3/uL (2.7-7.7); Platelet Count 268 K/mm3 (150-450); RBC Distribution Width CV 14.5 % (11.6-14.6); RBC Distribution Width SD 56.8 fl (35.1-43.9); Red Blood Count 3.77 M/mm3 (4.6-6.2); White Blood Count 12.7 K/mm3 (4.4-11.0)
[2021-04-30 16:08] VITALS: BP 119/67; PULSE 71; RESP 22; O2SAT 95
[2021-04-30 16:15] LABS: Bacteria 0 SEEN /hpf (None Seen); Mucous, Urine 0 SEEN /hpf (<or=2+); Red Blood Cells-Urine 0 SEEN /hpf (0-5); White Blood Cells 0 SEEN /hpf (0-5)
[2021-04-30] MEDS: fentaNYL 100 MCG/2 ML Ampul 50 MCG IV ×3 (16:16→18:13)
[2021-04-30 16:17] LABS: Color, Urine Yellow (Yellow); Glucose, Dipstick Normal (Normal); Ketone-Dipstick Negative (Negative); Leukocyte Esterase-Dipstick Negative /ul (Negative); Nitrite-Dipstick Negative (Negative); Occult Blood-Urine Negative /ul (Negative); Protein-Dipstick Negative (Negative); Urine Bilirubin Dipstick Negative (Negative); Urine Clarity Clear (Clear); Urine Urobilinogen Normal (Normal); Urine pH 6.5 (5.0 - 8.0)
[2021-04-30 16:38] LABS: Amphetamine Urine VISTA NEGATIVE (<1000 ng/mL); Barbiturate Urine VISTA NEGATIVE (< 200 ng/mL); Benzodiazepine Urine VISTA NEGATIVE (< 200 ng/mL); Cocaine Urine VISTA NEGATIVE (< 300 ng/mL); Ecstacy Urine VISTA NEGATIVE (< 500 ng/mL); Methadone Urine VISTA NEGATIVE (< 300 ng/mL); PCP Urine VISTA NEGATIVE (< 25 ng/mL); THC Urine VISTA NEGATIVE (< 50 ng/mL); Vista UDS pH Range 6
[2021-04-30 17:05] LABS: Squamous Epithelial Cells - UA 0-5 SEEN /hpf (0-5)
[2021-04-30 17:51] VITALS: O2SAT 88; O2SAT 97
== END 2021-04-30 18:57 | disposition short-term general hospital (02) ==
PROVIDERS: Emergency Provider Student in an Organized Health Care Education/Training Program; PCP Family Medicine
DX: S22.20XA Unspecified fracture of sternum, initial encounter for closed fracture (principal); S09.90XA Unspecified injury of head, initial encounter; S50.811A Abrasion of right forearm, initial encounter; S50.812A Abrasion of left forearm, initial encounter; F10.129 Alcohol abuse with intoxication, unspecified; F41.9 Anxiety disorder, unspecified; F32.9 Major depressive disorder, single episode, unspecified; I50.9 Heart failure, unspecified; J44.9 Chronic obstructive pulmonary disease, unspecified; K21.9 Gastro-esophageal reflux disease without esophagitis; E78.5 Hyperlipidemia, unspecified; I11.0 Hypertensive heart disease with heart failure; I48.0 Paroxysmal atrial fibrillation; Z86.73 Personal history of transient ischemic attack (TIA), and cerebral infarction without residual deficits; Z79.02 Long term (current) use of antithrombotics/antiplatelets; Z79.899 Other long term (current) drug therapy; Z87.891 Personal history of nicotine dependence; V48.0XXA Car driver injured in noncollision transport accident in nontraffic accident, initial encounter; Y93.I9 Activity, other involving external motion; Y92.410 Unspecified street and highway as the place of occurrence of the external cause; Y99.8 Other external cause status
CPT/HCPCS: 70450; 71260; 72125; 73090; 74177; 80307; 81001; 82077; 85025; 85610; 93005; 96361; 96374; 96375; 96376; 99285; J7030; A4216; J2405